=== PATIENT | male | born 1985 | race African-American/Black ===

== ENCOUNTER → 2023-11-09 | Emergency (ER) | payer OTHER, SELFPAY ==
[~2023-11-09] MED LIST: CEFTRIAXONE 1000 MG/VIAL ONE; NA CHLORIDE 0.9% 50 ML ONE
--- OUTSIDE RECORDS SUMMARY | 2023-11-09 12:57 | XMS REPORT | Continuity of Care Document ---
Author Name Unknown Address [address] [place] [address] [facility] Address [address] [place] [address] Care Team Providers Care Outside Plant Technician Name Role Phone FANNY BINGHAM Attending Clinician UnavailMARILU Brandt Attending Clinician Unavailable LOLI LARA Attending Clinician Unavailable ZAID MENDEZ Attending Clinician Unavailable MARQUIS BORDEN Attending Clinician Unavailable Payers Payer Name Policy Type Policy Number Effective Date Expirati on Date Source Encounters Start Date/Time End Date/Time Encounter Type Admission Type Attending Clinicians Care Facility Care Department Encounter ID Source 2023-05-24 15:21:08 Inpatient [facility] [id number] [facility] 2023-01-16 11:30:14 Inpatient TEXANA TEXANA [id number] [facility] 2022-11-12 11:17:16 Inpatient TEXANA TEXANA [id number] [facility] 2022-11-10 23:08:24 Inpatient TEXANA TEXANA [id number] [facility] 2022-11-05 09:50:54 Inpatient TEXANA TEXANA [id number] [facility] 2022-08-06 11:55:36 Inpatient TEXANA TEXANA [id number] [facility] 2022-07-03 14:40:59 Inpatient TEXANA TEXANA [id number] [facility] 2022-04-26 10:51:45 Inpatient TEXANA TEXANA [id number] [facility] 2022-04-11 16:28:03 Inpatient TEXANA TEXANA [id number] [facility] 2023-11-02 17:53:00 2023-11-02 20:46:00 Emergency ER FANNY BINGHAM [facility] [id number] [facility] 2023-11-02 17:53:00 2023-11-02 17:53:00 emergency [facility] [id number] 2023-11-01 11:32:00 2023-11-01 14:07:00 Emergency ER MARILU FERRER [facility] [id number] [facility] 2023-11-01 11:32:00 2023-11-01 14:07:00 emergency [facility] [id number] 2022-07-17 10:54:00 2022-07-17 12:36:00 Emergency ER FANNY BINGHAM [facility] [id number] [facility] 2022-07-17 10:54:00 2022-07-17 12:36:00 emergency [id number] 2021-08-09 14:10:00 2021-08-09 14:10:00 Outpatient OTHER LOCAL AUTHORITY^ ^5 LOLI LARA [facility] [id number] [facility] 2020-11-17 09:32:00 2020-11-17 10:15:00 Emergency ER ZAID MENDEZ [facility] [id number] [facility] 2003-03-05 12:56:00 2003-03-05 14:35:00 Emergency ER MARQUIS BORDEN [facility] [id number] [facility]
[2023-11-09 14:37] LABS: Specific Gravity > 1.030 (1.005-1.030); Urine Bacteria None Seen /HPF (<20); Urine Bilirubin NEGATIVE (Negative); Urine Blood Negative (Negative); Urine Clarity Clear (Clear); Urine Color Yellow (Yellow); Urine Glucose NEGATIVE (Negative); Urine Mucus Slight /HPF (None Seen); Urine Protein TRACE (Negative); Urine RBC <5 /HPF (None Seen); Urine Urobilinogen Normal (Normal)
[2023-11-09 14:39] LABS: Absolute Lymphocytes (CBC) 2.7 K/uL (0.7-4.9); Hematocrit 45.6 % (39.6-49.0); Lymphocytes % 50.1 % (15.3-44.8); MPV 9.4 fL (7.6-11.3); Platelets 267 thou/uL (152-406); RBC Red Blood Cell Count 5.12 M/uL (4.33-5.43)
--- NOTE | 2023-11-09 14:42 | RAD REPORT ---
EXAM DESCRIPTION: US - Scrotum Testicles - 11/09/2023 2:14 pm CLINICAL HISTORY: PAIN COMPARISON: No comparisons FINDINGS: The right testicle 4.9 x 3.3 x 2.2 cm. No intratesticular masses or evidence of testicular torsion. The left testicle significantly atrophic measuring 1.2 x 1.0 cm. Both epididymides are normal in size and appearance. No pathologic fluid collections. 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 Normal appearance to the right testicle with normal flow.
[2023-11-09 14:50] LABS: Albumin 3.7 g/dL (3.4-5.0); Bilirubin Total 0.3 mg/dL (0.2-1.0); Potassium 3.7 mEq/L (3.5-5.1); Protein, Total 7.6 g/dL (6.4-8.2)
[2023-11-09 15:03] LABS: RPR (Rapid Plasma Reagin) NON-REACT (NON-REACT)
--- NOTE | 2023-11-09 15:33 | RAD REPORT ---
EXAM DESCRIPTION: CTAbdomen Pelvis W Contrast - 11/09/2023 3:16 pm CLINICAL HISTORY: Abdominal pain. pain at scrotal base near rectum; Assess for infection COMPARISON: No comparisons TECHNIQUE: Biphasic CT imaging of the abdomen and pelvis was performed with 100 ml non-ionic IV cont rast. All CT scans are performed using dose optimization technique as appropriate and may include automated exposure control or mA/KV adjustment according to patient size. FINDINGS: The lung bases are clear. The liver, spleen, pancreas, adrenal glands and kidneys are within normal limits. No bowel obstruction, free air, free fluid or abscess. The appendix is normal. No evidence of signi ficant lymphadenopathy. Mild soft tissue thickening is seen in the base of the scrotum region, nonspe cific. No suspicious bony findings. IMPRESSION: Mild nonspecific soft tissue thickening is seen in the base of the scrotum/perineal goldie on without well defined fluid collection or mass.
[2023-11-09 15:35] LABS: Blood Morphology Comment NOT SEEN (NOT SEEN); Platelet Estimate ADEQ
--- NOTE | 2023-11-09 16:14 | ER ---
Nurse's Notes [facility] Name: Nam Dinero Age: 38 yrs Sex: Male : 1985 Arrival Date: 11/09/2023 Time: 12:54 Bed 16 Private MD: Diagnosis: Soft tissue infection at perineum, screen for STI Presentation: 11/09 13:13 Chief complaint: Testicular pain x 3 days. Denies injury. Coronavirus screen: At this hb time, the client does not indicate any symptoms associated with coronavirus-19. Ebola Screen: No symptoms or risks identified at this time. Initial Sepsis Screen: Does the patient meet any 2 criteria? No. Patient's initial sepsis screen is negative. Does the patient have a suspected source of infection? No. Patient's initial sepsis screen is negative. Risk Assessment: Do you want to hurt yourself or someone else? Patient reports no desire to harm self or others. Onset of symptoms was November 07, 2023. 13:13 Method Of Arrival: Ambulatory hb 13:13 Acuity: JOCY 3 hb Historical: - Allergies: 13:14 No Known Allergies; hb - Home Meds: 13:14 None [Active]; hb - PMHx: 13:14 None; hb - PSHx: 13:14 hernia; hb - Immunization history:: Adult Immunizations unknown. - Social history:: Smoking status: unknown. Screenin:28 [facility] ED Fall Risk Assessment (Adult) History of falling in the last 3 months, db including since admission No falls in past 3 months (0 pts) Score/Fall Risk Level 0 - 2 = Low Risk. Abuse screen: Denies threats or abuse. Denies injuries from another. Nutritional screening: No deficits noted. Tuberculosis screening: No symptoms or risk factors identified. Assessment: 14:11 Reassessment: PATIENT RETURNED TO ROOM FROM CT. db 14:28 Reassessment: Patient appears in no apparent distress at this time. Patient and/or db family updated on plan of care and expected duration. Pain level reassessed. Patient is alert, oriented x 3, equal unlabored respirations, skin warm/dry/pink. SCROTAL PAIN. General: Appears in no apparent distress. comfortable, Behavior is calm, cooperative. Pain: Complains of pain in pelvis. Neuro: Level of Consciousness is awake, alert, obeys commands, Oriented to person, place, time, situation. Respiratory: Airway is patent Respiratory effort is even, unlabored, Respiratory pattern is regular, symmetrical. 15:49 Reassessment: Pt asked tro change into provided hospital gown, surgeon in route to examine pt. 15:56 Reassessment: DR. VENCES AT PATIENT BEDSIDE. db 16:20 Reassessment: Patient appears in no apparent distress at this time. Patient and/or db family updated on plan of care and expected duration. Pain level reassessed. Patient is alert, oriented x 3, equal unlabored respirations, skin warm/dry/pink. Vital Signs: 13:13 BP 147 / 98; Pulse 112; Resp 18; Temp 98; Pulse Ox 98% ; Weight 70.31 kg; Height 5 ft. hb 9 in. ; Pain 8/10; 16:20 BP 128 / 88; Pulse 96; Resp 18; Pulse Ox 98% on R/A; db 13:13 Body Mass Index 22.89 (70.31 kg, 175.26 cm) hb 13:13 Pain Scale: Adult hb ED Course: 12:57 Patient arrived in ED. mg5 13:14 Triage completed. hb 13:14 Arm band placed on. hb 13:15 Parvin Quigley MD is Attending Physician. sp3 13:52 Megan South, RN is Primary Nurse. db 14:16 US Scrotum Testicles In Process Unspecified. EDMS 14:26 Initial lab(s) drawn, by me, sent to lab. Urine collected: clean catch specimen, clear. [email or web address] Inserted saline lock: 22 gauge in left antecubital area, using aseptic technique. 14:28 Patient has correct armband on for positive identification. Bed in low position. Call db light in reach. Side rails up X 1. Warm blanket given. 14:32 GC (Harrison/Chl) Probe URINE Sent. jg11 14:32 UAM Sent. jg11 15:17 CT Abd/Pelvis - IV Contrast Only In Process Unspecified. EDMS 15:35 Surgeon paged at 15:36. eb 15:38 Surgeon returned call at 15:39. eb 16:13 Sergio Hendricks MD is Referral Physician. sp3 16:20 Provided Education on: DISCHARGE. db 16:20 No provider procedures requiring assistance completed. IV discontinued, intact, db bleeding controlled, No redness/swelling at site. Administered Medications: 14:24 Drug: Rocephin IV 1 grams IV at calculated rate once; Given slow IV push per pharmacy db instructions Route: IV; Rate: calculated rate; Site: left antecubital; 15:01 Follow up: Response: No adverse reaction; IV Status: Completed infusion; IV Intake: 50mldb Medication: 14:28 VIS not applicable for this client. db Intake: 15:01 IV: 50ml; Total: 50ml. db Outcome: 16:13 Discharge ordered by MD. [email or web address] 16:20 Discharged to home ambulatory, with family, db 16:20 Condition: stable 16:20 Discharge instructions given to patient, Instructed on discharge instructions, follow up and referral plans. Prescriptions given X 2, 16:21 Patient left the ED. db Signatures: Dispatcher [employer] EDMS Rita Almanzar, RN RN Kanika Lewis Setul, MD MD sp3 Megan South RN RN Patricia Camargo [address]ata [email or web address]
--- NOTE | 2023-11-09 16:14 | EDPHYS ---
Physician Documentation [facility] Name: Nam Dinero Age: 38 yrs Sex: Male : 1985 Arrival Date: 11/09/2023 Time: 12:54 Bed 16 Private MD: ED Physician Parvin Quigley HPI: 11/09 13:41 This 38 yrs old Black Male presents to ER via Ambulatory with complaints of Groin Pain. 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 Patient had unprotected intercourse with a female and he states that shortly after that the symptoms started. He reports no urethral drainage or penis pain. Pain is more on the skin at the base of the scrotum anterior to the anus. No prior history of Blake's gangrene or any other cellulitis or gangrenous process. Patient denies fever, abdominal pain, back pain, nausea, vomiting, diarrhea, or any other signs or symptoms on ROS at this time.. Historical: - Allergies: 13:14 No Known Allergies; hb - Home Meds: 13:14 None [Active]; hb - PMHx: 13:14 None; hb - PSHx: 13:14 hernia; hb - Immunization history:: Adult Immunizations unknown. - Social history:: Smoking status: unknown. ROS: 13:43 Constitutional: Negative for fever, chills, and weight loss, Eyes: Negative for injury, sp3 pain, redness, and discharge, ENT: Negative for injury, pain, and discharge, Neck: Negative for injury, pain, and swelling, Cardiovascular: Negative for chest pain, palpitations, and edema, Respiratory: Negative for shortness of breath, cough, wheezing, and pleuritic chest pain, Abdomen/GI: Negative for abdominal pain, nausea, vomiting, diarrhea, and constipation, Back: Negative for injury and pain, MS/Extremity: Negative for injury and deformity, Skin: Negative for injury, rash, and discoloration, Neuro: Negative for headache, weakness, numbness, tingling, and seizure, Psych: Negative for depression, anxiety, suicide ideation, homicidal ideation, and hallucinations, Allergy/Immunology: Negative for hives, rash, and allergies, Endocrine: Negative for neck swelling, polydipsia, polyuria, polyphagia, and marked weight changes, Hematologic/Lymphatic: Negative for swollen nodes, abnormal bleeding, and unusual bruising, 13:43 All other systems are negative, Exam: 13:44 Constitutional: This is a well developed, well nourished patient who is awake, alert, sp3 and in no acute distress. Head/Face: Normocephalic, atraumatic. Eyes: Pupils equal round and reactive to light, extra-ocular motions intact. Lids and lashes normal. Conjunctiva and sclera are non-icteric and not injected. Cornea within normal limits. Periorbital areas with no swelling, redness, or edema. Neck: Trachea midline, no thyromegaly or masses palpated, and no cervical lymphadenopathy. Supple, full range of motion without nuchal rigidity, or vertebral point tenderness. No Meningismus. Chest/axilla: Normal chest wall appearance and motion. Nontender with no deformity. No lesions are appreciated. Cardiovascular: Regular rate and rhythm with a normal S1 and S2. No gallops, murmurs, or rubs. Normal PMI, no JVD. No pulse deficits. Respiratory: Lungs have equal breath sounds bilaterally, clear to auscultation and percussion. No rales, rhonchi or wheezes noted. No increased work of breathing, no retractions or nasal flaring. Abdomen/GI: Soft, non-tender, with normal bowel sounds. No distension or tympany. No guarding or rebound. No evidence of tenderness throughout. Back: No spinal tenderness. No costovertebral tenderness. Full range of motion. Skin: Warm, dry with normal turgor. Normal color with no rashes, no lesions, and no evidence of cellulitis. MS/ Extremity: Pulses equal, no cyanosis. Neurovascular intact. Full, normal range of motion. Neuro: Awake and alert, GCS 15, oriented to person, place, time, and situation. Cranial nerves II-XII grossly intact. Motor strength 5/5 in all extremities. Sensory grossly intact. Cerebellar exam normal. Normal gait. Psych: Awake, alert, with orientation to person, place and time. Behavior, mood, and affect are within normal limits. 13:44 : Pain to palpation on the skin anterior to the anus. Testicular exam demonstrates mild pain as well. No urethral drainage noted. No visible lesions noted., Vital Signs: 13:13 BP 147 / 98; Pulse 112; Resp 18; Temp 98; Pulse Ox 98% ; Weight 70.31 kg; Height 5 ft. hb 9 in. ; Pain 8/10; 16:20 BP 128 / 88; Pulse 96; Resp 18; Pulse Ox 98% on R/A; db 13:13 Body Mass Index 22.89 (70.31 kg, 175.26 cm) hb 13:13 Pain Scale: Adult hb MDM: 13:15 Patient medically screened. sp3 13:44 Data reviewed: vital signs, nurses notes, lab test result(s), radiologic studies. ED sp3 course: 38-year-old male with scrotal pain. Differential diagnosis includes localized abscess, infected hair follicle, testicular pathology, epididymitis, STI, and to a lesser degree Blake's gangrene in a very early process. Will obtain CT scan of the abdomen pelvis with IV contrast to assess that area as well as an ultrasound of the testicle, and general laboratory values as well as urine analysis and STI testing. Patient has received 1 g of Rocephin IV and we will add doxycycline if patient is discharged disposition pending workup and patient course... 15:43 ED course: Reviewed workup. Ultrasound is negative and labs demonstrate no significant sp3 abnormality. CT demonstrates thickening of the peroneal area inferior to the scrotum. This is the area where he is tender. Pain is out of proportion to exam. I discussed this with Dr. Cuevas general surgery on-call who will be evaluating patient at bedside.. 16:10 ED course: Patient evaluated by general surgery. At this time we are not highly sp3 suspicious for Blake's and we will treat as soft tissue infection. Patient will go home on doxycycline and topical antibiotic ointment and follow-up with urology.. 11/09 13:21 Order name: CBC with Diff; Complete Time: 15:36 sp3 11/09 13:21 Order name: CMP; Complete Time: 15:00 sp3 11/09 13:21 Order name: UAM; Complete Time: 15:00 sp3 11/09 13:21 Order name: GC (Harrison/Chl) Probe URINE sp3 11/09 13:21 Order name: Rpr; Complete Time: 15:34 sp3 11/09 14:46 Order name: Manual Differential; Complete Time: 15:36 EDMS 11/09 13:21 Order name: CT Abd/Pelvis - IV Contrast Only; Complete Time: 15:34 sp3 11/09 13:21 Order name: US Scrotum Testicles; Complete Time: 15:00 sp3 11/09 13:21 Order name: IV Saline Lock; Complete Time: 14:28 sp3 11/09 13:21 Order name: Labs collected and sent; Complete Time: 14:28 sp3 Administered Medications: 14:24 Drug: Rocephin IV 1 grams IV at calculated rate once; Given slow IV push per pharmacy db instructions Route: IV; Rate: calculated rate; Site: left antecubital; 15:01 Follow up: Response: No adverse reaction; IV Status: Completed infusion; IV Intake: 50mldb Disposition Summary: 11/09/23 16:13 Discharge Ordered Notes: Location: Home sp3 Condition: Stable sp3 Diagnosis - Soft tissue infection at perineum, screen for STI sp3 Followup: sp3 - With: Sergio Hendricks MD - When: Upon discharge from the Emergency Department - Reason: Recheck today's complaints Discharge Instructions: - Discharge Summary Sheet sp3 - Cellulitis, Adult sp3 - Safe Sex sp3 Forms: - Medication Reconciliation Form sp3 - Thank You Letter sp3 - Antibiotic Education sp3 - Prescription Opioid Use sp3 - Patient Portal Instructions sp3 - Leadership Thank You Letter sp3 Prescriptions: - mupirocin 2 % Topical ointment - apply 1 application TOPICAL route 3 times per day; 15 gram tube; Refills: 0, sp3 Product Selection Permitted - Doxycycline Hyclate 100 mg Oral Tablet - take 1 tablet ORAL route every 12 hours; 20 tablet; Refills: 0, Product sp3 Selection Permitted Signatures: Dispatcher [employer] Rita Og RN RN Parvin Serrano MD MD sp3 Megan South RN RN db
[2023-11-09 16:44] VITALS: TEMP 98; O2SAT 98
[2023-11-09 17:00] VITALS: BP 128/88
--- NOTE | 2023-11-09 19:27 | CON ---
Date of Consultation: 11/09/2023 Reason: Perineal body pain. History Of Present Illness: The patient is a 38-year-old gentleman who comes in with a history of un protected sex about a week ago with someone he did not know and had difficulty with ejaculation, pain at the base of his penis, and had a CAT scan done in the ER, which showed inflammation of the perine al body and his pain was out of proportion to the physical findings. Therefore I was consulted to bala ke sure that he does not have perineal infection or Blake gangrene. The patient is awake, alert, no distress. He denies any fever or chills. No sore throat, runny nose, cough, headaches, or dizzin ess. No GI symptoms. No diarrhea or constipation. No pain with defecation. No urethral discharge. No dysuria, hematuria. Review of Systems: Otherwise unremarkable. Past Medical History: Negative. Past Surgical History: Inguinal hernia repair. Allergies: NONE. Social History: He does smoke and occasionally drinks alcohol and does smoke marijuana as well. Family History: Noncontributory. Physical Examination: Vital Signs: Stable except for slightly elevated heart rate. He is afebrile. General: He is awake, alert, oriented x3. Head and Neck: No masses. Chest: Clear. Heart: S1, S2. Abdomen: Soft, nondistended, nontender. Positive bowel sounds. Extremities: Neurovascularly intact. Neuro: Nonfocal. : Examination of the penis, scrotum, and perineal body and rectum region reveals no evidence of an y warmth, edema, tenderness, crepitus, or discharge. Essentially nontender at this point. 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 Laboratory Data: White count 5.4, his H and H are 15.1 and 45.6, platelets are 267. His neutrophil percentage is 40.2, lymphocytes 50.1. His ultrasound of the scrotum reveals highly atrophic left lori ticle suspected, normal appearance right testicle with normal flow. Both epididymides are normal in size and appearance. There is no pathological fluid collection. The CT of the abdomen and pelvis re viewed as well, which shows mild nonspecific soft tissue thickening in the base of the scrotum, perin eal region without well-defined fluid collection or mass. There is no air. There are no other suspi cious findings in the abdomen. Assessment: A 38-year-old gentleman with perineal pain probably secondary to recent sexual activity with inflammation. Recommendation: Oral antibiotics should suffice, pain medication as needed, and follow up with the u rologist with all of his concerns. There is no need for any general surgical intervention or foll owup with this particular patient. BRUNO/LAWRENCE Voice ID: [id number] Report ID: [id number]
== END ==
LOC: ER 12:54
DX: L03.315 Cellulitis of perineum (principal); Z11.3 Encounter for screening for infections with a predominantly sexual mode of transmission
CPT/HCPCS: 85025; 81001; 36415; 86592; 80053; 87590; 87490; 74177; 76870; Q9967; J0696

== ENCOUNTER 2024-07-09 19:18 | Emergency (ER) | payer OTHER, SELFPAY ==
--- OUTSIDE RECORDS SUMMARY | 2024-07-09 19:21 | XMS REPORT | Continuity of Care Document ---
Author Name Unknown Address [address] [facility] [address] [place] [address] [facility] Address [address] [facility] [place] [address] Care Team Providers Care Director Medicare Sales Name Role Phone ARVIN ESPINAL Attending Clinician Unavailable ANGELES BERG Attending Clinician Unavailable FANNY BINGHAM Attending Clinician UnavailMARILU Brandt Attending Clinician Unavailable LOLI LARA Attending Clinician Unavailable ZAID MENDEZ Attending Clinician Unavailable CHINTAN FREED Attending Clinician UnavailMARQUIS Tirado Attending Clinician Unavailable Payers Payer Name Policy Type Policy Number Effective Date Expirati on Date Source Allergies, Adverse Reactions, Alerts Allergy Name Allergy Type Status Severity Reaction(s) Onset Date Inactive Date Treating Clinician Comments Source No known drug allergy Miscella neous allergy Active 10-09 00:00: 00 [facility] Encounters Start Date/Time End Date/Time Encounter Type Admission Type Attending Clinicians Care Facility Care Department Encounter ID Source 2023-05-24 15:21:08 Inpatient TEXANA TEXANA [id number] [facility] 2023-01-16 11:30:14 Inpatient TEXANA TEXANA [id number] [facility] 2022-11-12 11:17:16 Inpatient TEXANA TEXANA [id number] [facility] 2022-11-10 23:08:24 Inpatient TEXANA TEXANA [id number] [facility] 2022-11-05 09:50:54 Inpatient TEXANA TEXANA [id number] [facility] 2022-08-06 11:55:36 Inpatient TEXANA TEXANA [id number] [facility] 2022-07-03 14:40:59 Inpatient TEXANA TEXANA [id number] [facility] 2022-04-26 10:51:45 Inpatient TEXANA TEXANA [id number] [facility] 2022-04-11 16:28:03 Inpatient TEXANA TEXANA [id number] [facility] 2023-12-31 08:30:00 2023-12-31 08:30:00 Outpatient UNKNOWN ARVIN ESPINAL [facility] [id number] [facility] 2023-11-19 01:01:00 2023-11-19 03:26:00 Emergency ER ANGELES BERG [facility] [id number] [facility] 2023-11-02 17:53:00 2023-11-02 20:46:00 Emergency ER FANNY BINGHAM [facility] [id number] [facility] 2023-11-02 17:53:00 2023-11-02 17:53:00 emergency [facility] [id number] 2023-11-01 11:32:00 2023-11-01 14:07:00 Emergency ER MARILU FERRER [facility] [id number] [facility] 2023-11-01 11:32:00 2023-11-01 14:07:00 emergency [facility] [id number] 2022-07-17 10:54:00 2022-07-17 12:36:00 Emergency ER DANIELALTAFFANNY MCDANIEL [facility] [id number] [facility] 2022-07-17 10:54:00 2022-07-17 12:36:00 emergency [id number] 2022-04-11 17:27:00 2022-04-11 17:27:00 Outpatient INTERNAL TEXANA REFERRAL^^ 4^INTERNAL TEXANA REFERRAL^^ 4^INTERNAL TEXANA REFERRAL^^ 4 TEXANA TEXANA [id number] [facility] 2021-08-09 13:10:00 2021-08-09 13:10:00 Outpatient OTHER LOCAL AUTHORITY LARALOLI TEXANA TEXANA [id number] [facility] 2020-11-17 09:32:00 2020-11-17 10:15:00 Emergency ER ZAID MENDEZ [facility] [id number] [facility] 2020-05-04 11:40:00 2020-05-05 00:03:00 Emergency E CHINTAN FREED [facility] [id number] [facility] 2003-03-05 12:56:00 2003-03-05 14:35:00 Emergency ER MARQUIS BORDEN [facility] [id number] [facility]
[2024-07-09] MEDS ORDERED: BISACODYL E.C. 5 MG TAB PO ONE (20:42)
--- NOTE | 2024-07-09 21:35 | EDPHYS ---
Physician Documentation [facility] Name: Nam Dinero Age: 38 yrs Sex: Male : 1985 Arrival Date: 07/09/2024 Time: 19:18 Bed 12 Private MD: ED Physician Benjamín Taylor HPI: 07/09 20:54 This 38 yrs old Black Male presents to ER via Ambulatory with complaints of Radioactive.sb4 20:54 Patient states that he believes there is something wrong with his brain. He complains sb4 of intermittent dizziness, headaches, near syncope. He denies any nausea or vomiting. Of note, he has a history of psychiatric illness and has not been taking his monthly injection. He is wearing a hat Made of aluminum foil to "protect his brain". Historical: - Allergies: 19:28 No Known Allergies; cm10 - PMHx: 19:28 None; cm10 - PSHx: 19:28 hernia; cm10 - Immunization history:: Adult Immunizations up to date. - Infectious Disease History:: Denies. - Social history:: Smoking status: Patient reports the use of cigarette tobacco products, smokes one-half pack cigarettes per day. ROS: 20:54 Constitutional: Negative for fever, chills, and weight loss, sb4 20:54 Abdomen/GI: Positive for constipation, 20:54 Neuro: Positive for dizziness, headache, 20:54 All other systems are negative, Exam: 20:54 Head/Face: Normocephalic, atraumatic. Eyes: Extra-ocular motions intact. Periorbital sb4 areas with no swelling, redness, or edema. ENT: Mucous membranes moist. Skin: Warm, dry with normal turgor. Normal color with no rashes, no lesions, and no evidence of cellulitis. 20:54 Constitutional: The patient appears in no acute distress, alert, awake, 20:54 Psych: Behavior/mood is cooperative, Patient has no thoughts/intents to harm self or others. Judgement / Insight is impaired. Vital Signs: 19:26 BP 147 / 96; Pulse 111; Resp 15; Temp 99(O); Pulse Ox 100% on R/A; Weight 68.04 kg; cm10 Height 5 ft. 9 in. ; Pain 0/10; 19:26 Body Mass Index 22.15 (68.04 kg, 175.26 cm) cm10 19:26 Pain Scale: Adult cm10 MDM: 19:30 Patient medically screened. sb4 21:33 Data reviewed: vital signs, nurses notes, and as a result, I will discharge patient. sb4 Counseling: I had a detailed discussion with the patient and/or guardian regarding the historical points, exam findings, and any diagnostic results supporting the discharge/admit diagnosis, the need for outpatient follow up, a psychiatrist, to return to the emergency department if symptoms worsen or persist or if there are any questions or concerns that arise at home. 21:33 ED course: Patient was taken to CAT scan but jumped out of CAT scan before it could be sb4 completed and then eloped. Administered Medications: 20:44 Drug: Bisacodyl PO 5 mg PO once Route: PO; tm6 21:35 Follow up: Response: No adverse reaction tm6 Disposition Summary: 07/09/24 21:34 Discharge Ordered Notes: Location: Home sb4 Problem: new sb4 Symptoms: are unchanged sb4 Condition: Stable sb4 Diagnosis - Altered mental status, unspecified sb4 Followup: sb4 - With: Emergency Department - When: As needed - Reason: Trouble breathing, Worsening of condition Forms: - Medication Reconciliation Form sb4 - Antibiotic Education sb4 - Prescription Opioid Use sb4 - Patient Portal Instructions sb4 - Leadership Thank You Letter sb4 Addendum: 07/12/2024 21:36 Co-signature as Attending Physician, Benjamín Taylor DO. m s3 Signatures: Dispatcher [employer] EDPA Benjamín Taylor DO DO ms3 Olimpia Cain PA-C PAWanda sb4 Dania Mayers, RN RN cm10 Kim Cole RN RN tm6
--- NOTE | 2024-07-09 21:35 | ER ---
Nurse's Notes [facility] Name: Nam Dinero Age: 38 yrs Sex: Male : 1985 Arrival Date: 07/09/2024 Time: 19:18 Bed 12 Private MD: Diagnosis: Altered mental status, unspecified Presentation: 07/09 19:26 Chief complaint: Patient states: "I ingested a chemical and I went into the hospital cm10 and they shot an x-ray and after that I started having abdominal pain." Pt states that he feels like something is in his head. Pt presents with tin foil hat on. Denies any drug or alcohol use. Denies any SI/HI. Coronavirus screen: Client denies travel out of the [place] in the last 14 days. Ebola Screen: Patient denies travel to an Ebola-affected area in the 21 days before illness onset. No symptoms or risks identified at this time. Initial Sepsis Screen: Does the patient meet any 2 criteria? HR > 90 bpm. Does the patient have a suspected source of infection? No. Patient's initial sepsis screen is negative. Risk Assessment: Do you want to hurt yourself or someone else? Patient reports no desire to harm self or others. Onset of symptoms was July 09, 2024. 19:26 Method Of Arrival: Ambulatory cm10 19:26 Acuity: JOCY 4 cm10 Triage Assessment: 19:29 General: Appears in no apparent distress. Behavior is calm, cooperative. Neuro: No cm10 deficits noted. Level of Consciousness is awake, alert, obeys commands, Oriented to person, place, time, situation, Appropriate for age. 19:29 Respiratory: No deficits noted. Airway is patent Respiratory effort is even, unlabored, cm10 Respiratory pattern is regular, symmetrical. Historical: - Allergies: 19:28 No Known Allergies; cm10 - PMHx: 19:28 None; cm10 - PSHx: 19:28 hernia; cm10 - Immunization history:: Adult Immunizations up to date. - Infectious Disease History:: Denies. - Social history:: Smoking status: Patient reports the use of cigarette tobacco products, smokes one-half pack cigarettes per day. Screenin:52 [facility] ED Fall Risk Assessment (Adult) History of falling in the last 3 months, tm6 including since admission No falls in past 3 months (0 pts) Confusion or Disorientation Yes (5 pts) Intoxicated or Sedated No (0 pts) Impaired Gait No (0 pts) Mobility Assist Device Used No (0 pt) Altered Elimination No (0 pt) Score/Fall Risk Level 3 or more points = High Risk Oriented to surroundings, Maintained a safe environment, Educated pt \\T\\ family on fall prevention, incl call for assistance when getting out of bed. Abuse screen: Denies threats or abuse. Denies injuries from another. Nutritional screening: No deficits noted. Tuberculosis screening: No symptoms or risk factors identified. Assessment: 20:52 Reassessment: patient rambling about "truth" and "love." RN provided prune juice and tm6 blanket to patient. General: Appears in no apparent distress. Behavior is anxious, restless. Pain: Denies pain. Neuro: Level of Consciousness is awake, alert, obeys commands, Oriented to person, place. Cardiovascular: Patient's skin is warm and dry. Respiratory: Airway is patent Respiratory effort is even, unlabored, Respiratory pattern is regular, symmetrical. GI: Abdomen is flat, non-distended, Reports constipation. : No signs and/or symptoms were reported regarding the genitourinary system. EENT: No signs and/or symptoms were reported regarding the EENT system. Derm: No signs and/or symptoms reported regarding the dermatologic system. Musculoskeletal: No signs and/or symptoms reported regarding the musculoskeletal system. 21:41 Reassessment: patient eloped from CT scan. Unable to obtain vitals prior to discharge tm6 or review discharge paperwork with patient. Vital Signs: 19:26 BP 147 / 96; Pulse 111; Resp 15; Temp 99(O); Pulse Ox 100% on R/A; Weight 68.04 kg; cm10 Height 5 ft. 9 in. ; Pain 0/10; 19:26 Body Mass Index 22.15 (68.04 kg, 175.26 cm) cm10 19:26 Pain Scale: Adult cm10 ED Course: 19:19 Patient arrived in ED. mg5 19:26 Olimpia Cain PA-C is [facility]. sb4 19:26 Benjamín Taylor DO is Attending Physician. sb4 19:28 Triage completed. cm10 19:29 Arm band placed on Patient placed in waiting room. cm10 20:38 Kim Cole, RN is Primary Nurse. tm6 20:52 Patient has correct armband on for positive identification. Fall risk band placed. tm6 Provided Education on: use of call ray. Noise minimized. Warm blanket given. Pillow given. PO fluids given. 21:42 No provider procedures requiring assistance completed. Patient did not have IV access tm6 during this emergency room visit. Administered Medications: 20:44 Drug: Bisacodyl PO 5 mg PO once Route: PO; tm6 21:35 Follow up: Response: No adverse reaction tm6 Medication: 20:52 VIS not applicable for this client. tm6 Outcome: 21:34 Discharge ordered by . sb4 21:42 Discharged to home with family, tm6 21:42 Condition: unchanged 21:43 Patient left the ED. tm6 Signatures: Olimpia Cain PA-C PA-C sb4 Dania Mayers, RN RN cm10 Patricia Knapp mg5 Kim Cole, RN RN tm6
[2024-07-10 10:02] VITALS: BP 147/96; TEMP 99; O2SAT 100
== END 2024-07-09 21:43 | disposition home or self-care (01) ==
LOC: ER 19:18
DX: R41.82 Altered mental status, unspecified (principal); R42 Dizziness and giddiness; R51.9 Headache, unspecified; R55 Syncope and collapse; F17.210 Nicotine dependence, cigarettes, uncomplicated
CPT/HCPCS: 99282

== ENCOUNTER 2024-07-21 14:39 | Emergency (ER) | payer SELFPAY ==
--- OUTSIDE RECORDS SUMMARY | 2024-07-21 14:42 | XMS REPORT | Continuity of Care Document ---
Author Name Unknown Address [address] [facility] [address] [place] [address] [facility] Address [address] [facility]. [address] [place] [address] Care Team Providers Care Joiner Helper Name Role Phone ARVIN ESPINAL Attending Clinician [...] Miscella neous allergy Active 10-09 00:00: 00 [facility] Encounters Start Date/Time End Date/Time Encounter Type Admission Type Attending Clinicians Care Facility Care Department Encounter ID Source 2023-05-24 15:21:08 Inpatient TEXANA TEXANA [id number] [facility] 2023-01-16 11:30:14 Inpatient TEXANA TEXANA [id number] [facility] 2022-11-12 11:17:16 Inpatient TEXANA TEXANA [id number] [facility] 2022-11-10 23:08:24 Inpatient TEXANA TEXANA [id number] [facility] 2022-11-05 09:50:54 Inpatient TEXANA TEXANA [id number] [facility] 2022-08-06 11:55:36 Inpatient TEXANA TEXANA [id number] [facility] 2022-07-03 14:40:59 Inpatient TEXANA TEXANA [id number] [facility] 2022-04-26 10:51:45 Inpatient TEXANA TEXANA [id number] [facility] 2022-04-11 16:28:03 Inpatient TEXANA TEXANA [id number] [facility] 2023-12-31 08:30:00 2023-12-31 08:30:00 Outpatient UNKNOWN ARVIN ESPINAL [facility] [id number] [facility] 2023-11-19 01:01:00 2023-11-19 03:26:00 Emergency ER ANGELES BERG [facility] [id number] [facility] 2023-11-02 17:53:00 2023-11-02 20:46:00 Emergency ER FANNY BINGHAM [facility] [id number] [facility] 2023-11-02 17:53:00 2023-11-02 17:53:00 emergency [facility] [id number] 2023-11-01 11:32:00 2023-11-01 14:07:00 Emergency ER MARILU FERRER [facility] [id number] [facility] 2023-11-01 11:32:00 2023-11-01 14:07:00 emergency [facility] [id number] 2022-07-17 10:54:00 2022-07-17 12:36:00 Emergency ER DANIELALTAFFANNY MCDANIEL [facility] [id number] [facility] 2022-07-17 10:54:00 2022-07-17 12:36:00 emergency [id number] 2022-04-11 17:27:00 2022-04-11 17:27:00 Outpatient INTERNAL TEXANA REFERRAL^^ 4^INTERNAL TEXANA REFERRAL^^ 4^INTERNAL TEXANA REFERRAL^^ 4 TEXANA TEXANA [id number] [facility] 2021-08-09 13:10:00 2021-08-09 13:10:00 Outpatient OTHER LOCAL AUTHORITY LARALOLI TEXANA TEXANA [id number] [facility] 2020-11-17 09:32:00 2020-11-17 10:15:00 Emergency ER ZAID MENDEZ [facility] [id number] [facility] 2020-05-04 11:40:00 2020-05-05 00:03:00 Emergency E CHINTAN FREED [facility] [address] [facility] 2003-03-05 12:56:00 2003-03-05 14:35:00 Emergency ER MARQUIS BORDEN [facility] [id number] [facility]
[2024-07-21 15:26] LABS: Specific Gravity > 1.030 (1.005-1.030); Sqamous Epithelial <5 /HPF (None Seen); Urine Bacteria <20 /HPF (<20); Urine Bilirubin NEGATIVE (Negative); Urine Blood Negative (Negative); Urine Clarity Clear (Clear); Urine Color Yellow (Yellow); Urine Culture Reflex Order NOT NEEDED; Urine Glucose NEGATIVE (Negative); Urine Ketones TRACE (Negative); Urine Micro Reflex YN NO BILL MICROSCOPIC; Urine Mucus 2+ /HPF (None Seen); Urine Nitrite NEGATIVE (Negative); Urine Protein TRACE (Negative); Urine RBC <5 /HPF (None Seen); Urine Urobilinogen 2+ (Normal); Urine WBC <5 /HPF (<5)
--- NOTE | 2024-07-21 15:34 | EDPHYS ---
Physician Documentation [facility] Name: Nam Dinero Age: 38 yrs Sex: Male : 1985 Arrival Date: 07/21/2024 Time: 14:39 Bed IW1 Private MD: ED Physician Jose Merrill HPI: 07/21 14:55 This 38 yrs old Black Male presents to ER via Ambulatory with complaints of Penile ec2 Problem - swelling. 14:55 Patient arrives today for evaluation of reported penile issues. States that he has a ec2 bulge in the shaft of his penis. Patient reports occasional acute penile pain. Patient reports some dysuria. Patient also wears aluminum foil on his forehead to protect his brain.. Historical: - PSHx: 14:53 hernia; ap3 - Infectious Disease History:: unknown. - Social history:: Smoking status: unknown. ROS: 14:58 Constitutional: as per hpi ec2 Exam: 14:58 Constitutional: GEN: NAD Head: atraumatic Eyes: EOMI Ears: External ears are ec2 normal. CV: regular rate LUNGS: no respiratory distress ABD: non-distended. : Penis without significant erythema, no crepitus, no warmth, no discharge appreciated. Testicles are noninfectious appearing, does have testicular atrophy noted. SKIN: no evidence of rashes MSK: no evidence of trauma Vital Signs: 14:52 BP 132 / 75; Pulse 98; Resp 17; Temp 98.1; Pulse Ox 98% ; ap3 MDM: 14:46 Medical Screening Exam initiated ec2 14:58 Data reviewed: vital signs. ED course: Patient arrives today for evaluation of penile ec2 concerns. Examination remarkable for well-appearing nontoxic dividual's otherwise in no acute distress with a reassuring examination. Will send UA to evaluate for urinary tract infection. Patient with fall on his forehead, certainly has an underlying psychiatric disorder, he states he does not take medications currently. Patient is generally disheveled however does not seem to be an active threat to himself.. 07/21 14:53 Order name: RAFFY; Complete Time: 15:33 ec2 Administered Medications: No medications were administered Disposition Summary: 07/21/24 15:33 Discharge Ordered Condition: Stable ec2 Diagnosis - Dysuria ec2 Followup: ec2 - With: Private Physician - When: - Reason: Re-evaluation by your physician Followup: ec2 - With: Sergio Hendricks MD - When: - Reason: Recheck today's complaints Discharge Instructions: - Discharge Summary Sheet ec2 - Dysuria ec2 Forms: - Medication Reconciliation Form ec2 - Antibiotic Education ec2 - Prescription Opioid Use ec2 - Patient Portal Instructions ec2 - Leadership Thank You Letter ec2 Prescriptions: - Pyridium 200 mg Oral Tablet - take 1 tablet ORAL route every 8 hours for 3 days; 9 tablet; Refills: 0, ec2 Product Selection Permitted Signatures: Dispatcher [employer] EDSD Palmira Tracy RN RN ap3 Jose Merrill MD MD ec2 Corrections: (The following items were deleted from the chart) 14:53 14:53 Urinalysis W/Microscopic+U.LAB.BRZ ordered. [facility] EDSD 14:54 14:53 Allergies: No Known Allergies; ap3 ap3 15:42 15:41 Reduction: of the head of penis, using traction, Patient tolerated well. ec2 ec2
--- NOTE | 2024-07-21 15:34 | ER ---
Nurse's Notes [facility] Name: Nam Dinero Age: 38 yrs Sex: Male : 1985 Arrival Date: 07/21/2024 Time: 14:39 Bed IW1 Private MD: Diagnosis: Dysuria Presentation: 07/21 14:49 Chief complaint: Patient states: he is having pain in his penis and his testicles. ap3 Coronavirus screen: At this time, the client does not indicate any symptoms associated with coronavirus-19. Ebola Screen: No symptoms or risks identified at this time. 14:49 Method Of Arrival: Ambulatory ap3 14:52 Chief complaint: Patient states: he has been having pain in his testicles and penis. ap3 Coronavirus screen: At this time, the client does not indicate any symptoms associated with coronavirus-19. Ebola Screen: No symptoms or risks identified at this time. Initial Sepsis Screen: Does the patient meet any 2 criteria? No. Patient's initial sepsis screen is negative. Does the patient have a suspected source of infection? No. Patient's initial sepsis screen is negative. Risk Assessment: Do you want to hurt yourself or someone else? Patient reports no desire to harm self or others. Onset of symptoms is unknown. 14:52 Method Of Arrival: Ambulatory ap3 14:52 Acuity: JOCY 5 ap3 Triage Assessment: 14:54 General: Appears comfortable, Behavior is anxious. Pain: Complains of pain in head of ap3 penis and shaft of penis. Neuro: Level of Consciousness is awake, alert, obeys commands, Oriented to person, place, time, situation. Cardiovascular: Patient's skin is warm and dry. Respiratory: Airway is patent Respiratory effort is even, unlabored, Respiratory pattern is regular, symmetrical. Derm: Reports pain. Historical: - PSHx: 14:53 hernia; ap3 - Infectious Disease History:: unknown. - Social history:: Smoking status: unknown. Screenin:56 Abuse screen: Denies threats or abuse. Nutritional screening: No deficits noted. ap3 Tuberculosis screening: No symptoms or risk factors identified. Vital Signs: 14:52 BP 132 / 75; Pulse 98; Resp 17; Temp 98.1; Pulse Ox 98% ; ap3 ED Course: 14:42 Patient arrived in ED. ra3 14:42 Merrill, Jose, MD is Attending Physician. ec2 14:53 Triage completed. ap3 14:56 Arm band placed on right wrist. ap3 14:56 Patient has correct armband on for positive identification. Adult w/ patient. Provided ap3 Education on: urine collection. 15:33 Sergio Hendricks MD is Referral Physician. ec2 16:02 Latanya Valenzuela, RN is Primary Nurse. iw Administered Medications: No medications were administered Outcome: 15:33 Discharge ordered by . ec2 16:02 Patient left the ED. iw Signatures: Latanya Valenzuela, RN RN iw Palmira Tracy RN RN ap3 Jose Merrill MD MD ec2 Christine Mares ra3 Corrections: (The following items were deleted from the chart) 14:54 14:53 Allergies: No Known Allergies; ap3 ap3
[2024-07-21 16:46] VITALS: BP 132/75; TEMP 98.1; O2SAT 98
== END 2024-07-21 16:02 | disposition home or self-care (01) ==
LOC: ER 14:39
DX: R30.0 Dysuria (principal)
CPT/HCPCS: 81001; 99281

== ENCOUNTER 2024-07-30 20:52 | Emergency (ER) | payer SELFPAY ==
--- OUTSIDE RECORDS SUMMARY | 2024-07-30 20:54 | XMS REPORT | Continuity of Care Document ---
Author Name Unknown Address [address] [facility] [address] [place], [place] [id number] [place] [address] [facility] Address [address] [facility] [address] [place] [address] Care Team Providers Care Echocardiography Radiology Technologist Name Role Phone ARVIN ESPINAL Attending Clinician [...] Miscella neous allergy Active 10-09 00:00: 00 [facility] Encounters Start Date/Time End Date/Time Encounter Type Admission Type Attending Clinicians Care Facility Care Department Encounter ID Source 2023-05-24 15:21:08 Inpatient TEXANA TEXANA [id number] [facility] 2023-01-16 11:30:14 Inpatient TEXANA TEXANA [id number] [facility] 2022-11-12 11:17:16 Inpatient TEXANA TEXANA [id number] [facility] 2022-11-10 23:08:24 Inpatient TEXANA TEXANA [id number] [facility] 2022-11-05 09:50:54 Inpatient TEXANA TEXANA [id number] [facility] 2022-08-06 11:55:36 Inpatient TEXANA TEXANA [id number] [facility] 2022-07-03 14:40:59 Inpatient TEXANA TEXANA [id number] [facility] 2022-04-26 10:51:45 Inpatient TEXANA TEXANA [id number] [facility] 2022-04-11 16:28:03 Inpatient TEXANA TEXANA [id number] [facility] 2023-12-31 08:30:00 2023-12-31 08:30:00 Outpatient UNKNOWN ARVIN ESPINAL [facility] [id number] [facility] 2023-11-19 01:01:00 2023-11-19 03:26:00 Emergency ER ANGELES BERG [facility] [id number] [facility] 2023-11-02 17:53:00 2023-11-02 20:46:00 Emergency ER FANNY BINGHAM [facility] [id number] [facility] 2023-11-02 17:53:00 2023-11-02 17:53:00 emergency [facility] [id number] 2023-11-01 11:32:00 2023-11-01 14:07:00 emergency [facility] [id number] 2023-11-01 11:32:00 2023-11-01 14:07:00 Emergency ER MARILU FERRER [facility] [id number] [facility] 2022-07-17 10:54:00 2022-07-17 12:36:00 emergency [id number] 2022-07-17 10:54:00 2022-07-17 12:36:00 Emergency ER DANIELALTAFFANNY MCDANIEL [facility] [id number] [facility] 2022-04-11 17:27:00 2022-04-11 17:27:00 Outpatient INTERNAL TEXANA REFERRAL^^ 4^INTERNAL TEXANA REFERRAL^^ 4^INTERNAL TEXANA REFERRAL^^ 4 TEXANA TEXANA [id number] [facility] 2021-08-09 13:10:00 2021-08-09 13:10:00 Outpatient OTHER LOCAL AUTHORITY LOLI LARA TEXANA TEXANA [id number] [facility] 2020-11-17 09:32:00 2020-11-17 10:15:00 Emergency ER ZAID MENDEZ [facility] [id number] [facility] 2020-05-04 11:40:00 2020-05-05 00:03:00 Emergency E CHINTAN FREED [facility] [id number] [facility] 2003-03-05 12:56:00 2003-03-05 14:35:00 Emergency ER MARQUIS BORDEN [facility] [id number] [facility]
--- NOTE | 2024-07-30 22:24 | RAD REPORT ---
EXAMINATION: XR PELVIS CLINICAL INDICATION: Male, 38 years old. [facility] MAIN foreign body urethra Bed Name: Treatment TECHNIQUE: AP Pelvis radiograph was obtained. COMPARISON: No prior exam. FINDINGS: No evidence of fracture or dislocation. Normal alignment. No evidence of AVN. Soft tissues are unremarkable. No radiopaque foreign body. IMPRESSION: No acute or significant abnormalities.
--- NOTE | 2024-07-30 22:27 | ER ---
Nurse's Notes [facility] Name: Nam Dinero Age: 38 yrs Sex: Male : 1985 Arrival Date: 07/30/2024 Time: 20:52 Bed IW10 Private MD: Diagnosis: Sensation of foreign body in the penis, Formication , Tactile Hallucinations Presentation: 07/30 21:22 Chief complaint: Patient states: STUCK SOMETHING UP HIS PENIS 1 WEEK AGO AND WANTS IT jj7 CHECKED. Coronavirus screen: At this time, the client does not indicate any symptoms associated with coronavirus-19. Ebola Screen: No symptoms or risks identified at this time. Initial Sepsis Screen: Does the patient meet any 2 criteria? No. Patient's initial sepsis screen is negative. Does the patient have a suspected source of infection? No. Patient's initial sepsis screen is negative. Risk Assessment: Do you want to hurt yourself or someone else? Patient reports no desire to harm self or others. Onset of symptoms was July 21, 2024. 21:22 Method Of Arrival: Ambulatory [facility] 21:22 Acuity: JOCY 5 jj7 Triage Assessment: 21:29 General: Appears in no apparent distress. comfortable, unkempt, Behavior is jj7 cooperative, appropriate for age, agitated. Historical: - Allergies: 21:29 No Known Allergies; jj7 - PMHx: 21:29 None; jj7 - PSHx: 21:29 hernia; jj7 - Immunization history:: Client reports receiving the 2nd dose of the Covid vaccine, Flu vaccine is not up to date. - Infectious Disease History:: Denies. - Social history:: Smoking status: Patient reports the use of cigarette tobacco products, smokes more than three packs cigarettes per day. Patient uses street drugs, Methamphetamine (Meth) Patient/guardian denies using alcohol. - Family history:: not pertinent. Screenin:00 [facility] ED Fall Risk Assessment (Adult) History of falling in the last 3 months, ha1 including since admission No falls in past 3 months (0 pts) Confusion or Disorientation No (0 pts) Intoxicated or Sedated No (0 pts) Impaired Gait No (0 pts) Mobility Assist Device Used No (0 pt) Altered Elimination No (0 pt) Score/Fall Risk Level 0 - 2 = Low Risk Oriented to surroundings, Maintained a safe environment, Hourly rounding (assess needs \T\ fall precautionary measures) done. Abuse screen: Denies threats or abuse. Denies injuries from another. Nutritional screening: No deficits noted. Tuberculosis screening: No symptoms or risk factors identified. Vital Signs: 21:22 BP 133 / 84; Pulse 92; Resp 17; Temp 98; Pulse Ox 99% ; Weight 68.04 kg; Height 5 ft. 9 j7 in. ; 21:22 Body Mass Index 22.15 (68.04 kg, 175.26 cm) [facility] [place] Coma Score: 07/31 19:49 Eye Response: spontaneous(4). Motor Response: obeys commands(6). Verbal Response: sp4 oriented(5). Total: 15. ED Course: 07/30 20:53 Patient arrived in ED. im 20:55 Daryl Tiwari MD is Attending Physician. sp4 21:29 Triage completed. 7 21:33 Patient has correct armband on for positive identification. ha1 22:12 Palmira Roy, RN is Primary Nurse. al5 22:18 Pelvis XRAY In Process Unspecified. EDMS 22:50 Provided Education on: follow ups . ha1 22:50 No provider procedures requiring assistance completed. ha1 22:50 Patient did not have IV access during this emergency room visit. ha1 Administered Medications: No medications were administered Medication: 22:50 VIS not applicable for this client. ha1 Outcome: 22:26 Discharge ordered by MD. sp4 22:50 Discharged to home ambulatory, ha1 22:50 Condition: stable 22:50 Discharge instructions given to patient, Instructed on discharge instructions, follow up and referral plans. Demonstrated understanding of instructions, follow-up care, 22:50 Patient left the ED. ha1 Signatures: Dispatcher [employer] EDMS Ester Oro RN RN ha1 Zac Pickett RN RN jj7 Potepalov, Sergey, MD MD sp4 Aracelis Spaulding Palmira Roy RN RN al5 Corrections: (The following items were deleted from the chart) 07/31 00:00 00:00 Patient left the ED. ha1 ha1
--- NOTE | 2024-07-30 22:27 | EDPHYS ---
Physician Documentation [facility] Name: Nam Dinero Age: 38 yrs Sex: Male : 1985 Arrival Date: 07/30/2024 Time: 20:52 Bed IW10 Private MD: ED Physician Daryl Tiwari HPI: 07/30 20:56 This 38 yrs old Black Male presents to ER via Unassigned with complaints of Prostate sp4 check. 07/31 19:49 Patient who has apparent history of schizophrenia presents with complaint of foreign sp4 body in the urethra of his penis. Patient reports foreign body seems to be on the underside of his penis. Patient presents with washcloth around his head that he states is a protection from hallucinatory experience. . Historical: - Allergies: 07/30 21:29 No Known Allergies; jj7 - PMHx: 21:29 None; jj7 - PSHx: 21:29 hernia; jj7 - Immunization history:: Client reports receiving the 2nd dose of the Covid vaccine, Flu vaccine is not up to date. - Infectious Disease History:: Denies. - Social history:: Smoking status: Patient reports the use of cigarette tobacco products, smokes more than three packs cigarettes per day. Patient uses street drugs, Methamphetamine (Meth) Patient/guardian denies using alcohol. - Family history:: not pertinent. ROS: 07/31 19:49 Constitutional: Negative for fever, chills, and weight loss, positive for reported sp4 foreign body in the urethra All other systems are negative, Exam: 19:49 Constitutional: This is a well developed, well nourished patient who is awake, alert, sp4 patient presents with washcloth around his head, also has Ketchup bag stuck to the forehead, presents with rambling speech and also periodic episodes of profuse cussing. Appears mildly agitated and restless but overall cooperative Head/Face: Normocephalic, atraumatic. Eyes: Pupils equal round and reactive to light, extra-ocular motions intact. Lids and lashes normal. Conjunctiva and sclera are not injected. Cornea within normal limits. Periorbital areas with no swelling, redness, or edema. ENT: Nares patent. No nasal discharge, no septal abnormalities noted. Tympanic membranes are normal and external auditory canals are clear. Oropharynx with no redness, swelling, or masses, exudates, or evidence of obstruction, uvula midline. Mucous membranes moist. Neck: Trachea midline, no thyromegaly or masses palpated, and no cervical lymphadenopathy. Supple, full range of motion without nuchal rigidity, or vertebral point tenderness. Chest/axilla: Normal chest wall appearance and motion. Nontender with no deformity. No lesions are appreciated. Cardiovascular: Regular rate and rhythm with a normal S1 and S2. No gallops, murmurs, or rubs. Normal PMI, no JVD. No pulse deficits. Respiratory: Lungs have equal breath sounds bilaterally, clear to auscultation and percussion. No rales, rhonchi or wheezes noted. No increased work of breathing, no retractions or nasal flaring. Abdomen/GI: Soft, with normal bowel sounds. No distension or tympany. No guarding or rebound. No evidence of tenderness throughout. Back: No spinal tenderness. No costovertebral tenderness. Male : Normal genitalia with no discharge or lesions. Normal scrotum and testicles, no inguinal hernias, no sign of embedded foreign bodies in the urethra or elsewhere. Skin: Warm, dry with normal turgor. Normal color with no rashes, no lesions, and no evidence of cellulitis. MS/ Extremity: Pulses equal, no cyanosis. Neurovascular intact. Full, normal range of motion. Neuro: Awake and alert, GCS 15, oriented to person, place Cranial nerves II-XII grossly intact. Motor strength 5/5 in all extremities. Sensory grossly intact. Psych: Awake, alert, with orientation to person, place, patient has rambling speech, mild agitation and restlessness. Also appears to have active delusions. Vital Signs: 07/30 21:22 BP 133 / 84; Pulse 92; Resp 17; Temp 98; Pulse Ox 99% ; Weight 68.04 kg; Height 5 ft. 9 j7 in. ; 21:22 Body Mass Index 22.15 (68.04 kg, 175.26 cm) [facility] Coma Score: 07/31 19:49 Eye Response: spontaneous(4). Motor Response: obeys commands(6). Verbal Response: sp4 oriented(5). Total: 15. MDM: 07/30 21:16 Medical Screening Exam initiated sp4 07/31 19:49 Differential Diagnosis altered mental status, sepsis, flu. Data reviewed: vital signs, sp4 nurses notes, old medical records, radiologic studies. 19:53 ED course: X-ray is normal revealing no signs of foreign body. Patient appears to have sp4 delusional disorder. At this time patient appears to have chronic delusions. No signs of emergent medical illness. Stable for discharge from the emergency department.. 07/30 21:37 Order name: Pelvis XRAY; Complete Time: 19:53 sp4 Administered Medications: No medications were administered Disposition Summary: 07/30/24 22:26 Discharge Ordered Notes: Location: Home sp4 Problem: new sp4 Symptoms: have improved sp4 Condition: Stable sp4 Diagnosis - Sensation of foreign body in the penis, Formication , Tactile Hallucinations sp4 Followup: sp4 - With: Private Physician - When: As needed - Reason: Discharge Instructions: - Discharge Summary Sheet sp4 - Medical Screening Exam sp4 Signatures: Dispatcher [employer] Zac Hernandez RN RN jj7 Daryl Tiwari MD MD sp4
[2024-07-31 10:43] VITALS: BP 133/84; TEMP 98; O2SAT 99
== END 2024-07-31 | disposition home or self-care (01) ==
LOC: ER 20:52
DX: R09.A9 Foreign body sensation, other site (principal); R20.2 Paresthesia of skin; R44.2 Other hallucinations
CPT/HCPCS: 72170; 99282

== ENCOUNTER 2025-02-19 23:52 | Emergency (ER) | payer SELFPAY ==
--- OUTSIDE RECORDS SUMMARY | 2025-02-19 23:57 | XMS REPORT | Continuity of Care Document ---
Author Name Unknown Address [address] [facility] [address] [place] [address] [facility] Address [address] [facility] [address] [facility] [address] [place] [address] Care Team Providers Care Commissary Representative Name Role Phone NO PHYSICIAN, . Primary Care Physician Unavailab MARTINE Keith Attending Clinician Unavailable HAMZAH MILLER Attending Clinician Unavailable FANNY BINGHAM Attending Clinician UnavailTeodoro Anne Attending Clinician Unavailable ARVIN ESPINAL Attending Clinician Unavailable ANGELES BERG Attending Clinician Unavailab MARILU Posey Attending Clinician Unavailable BROOKS LARA Attending Clinician Unavailable ZAID MENDEZ Attending Clinician Unavailable CHINTAN FREED Attending Clinician UnavailMARQUIS Tirado Attending Clinician Unavailable Physician, No Primary or Family Admitting Clinic magdi Unavailable Payers Payer Name Policy Type Policy Number Effective Date Expirati on Date Source Problems Condition Name Condition Details Condition Category Status Onset Date Resolution Date Last Treatment Date Treating Clinician Comments Source Schizophre court Complaint 06-19 12:00: 00 [facility] Hypertensi ve disorder Complaint [facility] Hyperchole sterolemia Complaint [facility] Long[facility] current use of drug therapy Complaint [facility] Psychogeni c formicatio n Problem [facility] Amphetamin e abuse Problem [facility] Cannabis abuse Problem [facility] Constipati on Problem [facility] Dehydratio n Problem [facility] Elevated blood pressure reading Problem [facility] Erectile dysfunctio n Problem [facility] Foreign body of toe of right foot Problem [facility] Left against medical advice Problem [facility] Prostatiti s Problem [facility] Eloped from emergency department Problem [facility] Genitourin ike symptoms Problem [facility] Urinary tract infection Problem [facility] Allergies, Adverse Reactions, Alerts Allergy Name Allergy Type Status Severity Reaction(s) Onset Date Inactive Date Treating Clinician Comments Source No Known Allergie s DA Active U 2023-10 0 00:00: 00 [facility] No known drug allergy Miscella neous allergy Active 1- 00:00: 00 [facility] No known drug allergy Miscella neous allergy Active 10-09 00:00: 00 [facility] Social History Social Habit Start Date Stop Date Quantity Comments Source History of tobacco use [facility] Smoking Status Start Date Stop Date Source Smokes tobacco daily (finding) 2020-11-17 09:54:00 [facility] Medications Ordered Medication Name Filled Medication Name Start Date Stop Date Current Medication? Ordering Clinician Indication Dosage Frequency Signature (SIG) Comments Components Source [facility] 2023-10 04:00: 00 12-02 05:00 :00 No 1U [facility] hydrOXYzine HCl hydrOXYzine HCl 2023-10 04:00: 00 11-02 05:00 :00 No 1{tbl} [facility] Depakote ER Depakote ER 2023-10 04:00: 00 11-02 05:00 :00 No 1{tbl} [facility] traZODone hydrochlori de traZODone hydrochlori de 2023-10 04:00: 00 11-02 05:00 :00 No 1{tbl} [facility] 11-27 05:00: 00 11-27 05:00 :00 No 1U [facility] Doxycycline (Monohydrat e) (Doxycyclin e) 100 Mg CAP Doxycycline (Monohydrat e) (Doxycyclin e) 100 Mg CAP 11-19 03:02: 00 Yes 1 [facility] Polyethylen e Glycol 3350 (Miralax) 17 Gm Packet Polyethylen e Glycol 3350 (Miralax) 17 Gm Packet 11-19 03:02: 00 Yes 1 [facility] Docusate Sodium (Colace *) 100 Mg CAP Docusate Sodium (Colace *) 100 Mg CAP 11-02 20:04: 00 Yes 1 [facility] Vital Signs Vital Name Observation Time Observation Value Comments S ource Height 2024-12-25 08:19:00 175.260787 cm Ma [facility] Weight 2024-12-25 08:19:00 63.165066 kg [facility] BMI (Body Mass Index) 2024-12-25 08:19:00 20.7 kg/m2 [facility] Height 2024-12-23 03:31:00 175.210219 cm Michaela [facility] Weight 2024-12-23 03:31:00 65.500820 kg [facility] BMI (Body Mass Index) 2024-12-23 03:31:00 21.4 kg/m2 [facility] Height 2024-08-05 09:36:00 175.246065 cm Michaela [facility] Weight 2024-08-05 09:36:00 81.609258 kg [facility] BMI (Body Mass Index) 2024-08-05 09:36:00 26.6 kg/m2 [facility] Height 2024-08-05 01:03:00 175.293576 cm Michaela [facility] Weight 2024-08-05 01:03:00 68.002090 kg [facility] BMI (Body Mass Index) 2024-08-05 01:03:00 22.2 kg/m2 [facility] Heart Rate 2024-08-07 18:13:04 93.0 /min [facility] Systolic 2024-08-07 18:13:04 141.0 mm[Hg] [facility] Diastolic 2024-08-07 18:13:04 98.0 mm[Hg] [facility] Height 2024-08-07 18:13:04 177.8 cm [facility] Weight Kgs 2024-08-07 18:13:04 62.6 KG [facility] BMI 2024-08-07 18:13:04 19.8 kg/m2 [facility] Heart Rate 2024-04-06 19:11:27 106.0 /min [facility] Systolic 2024-04-06 19:11:27 152.0 mm[Hg] [facility] Diastolic 2024-04-06 19:11:27 98.0 mm[Hg] [facility] Height 2024-04-06 19:11:27 177.8 cm [facility] Weight Kgs 2024-04-06 19:11:27 71.7 KG [facility] BMI 2024-04-06 19:11:27 22.7 kg/m2 [facility] Heart Rate 2024-01-15 13:33:46 82.0 /min [facility] Systolic 2024-01-15 13:33:46 132.0 mm[Hg] [facility] Diastolic 2024-01-15 13:33:46 89.0 mm[Hg] [facility] Height 2024-01-15 13:33:46 177.8 cm [facility] Weight Kgs 2024-01-15 13:33:46 72.1 KG [facility] BMI 2024-01-15 13:33:46 22.8 kg/m2 [facility] Heart Rate 2023-11-20 14:39:42 92.0 /min [facility] Systolic 2023-11-20 14:39:42 140.0 mm[Hg] [facility] Diastolic 2023-11-20 14:39:42 95.0 mm[Hg] [facility] Height 2023-11-20 14:39:42 177.8 cm [facility] Weight Kgs 2023-11-20 14:39:42 70.3 KG [facility] BMI 2023-11-20 14:39:42 22.2 kg/m2 [facility] Heart Rate 2023-01-16 16:19:33 72.0 /min [facility] Systolic 2023-01-16 16:19:33 130.0 mm[Hg] [facility] Diastolic 2023-01-16 16:19:33 92.0 mm[Hg] [facility] Height 2023-01-16 16:19:33 176.5 cm [facility] Weight Kgs 2023-01-16 16:19:33 86.6 KG [facility] BMI 2023-01-16 16:19:33 27.8 kg/m2 [facility] Heart Rate 2022-11-13 15:41:02 83.0 /min [facility] Systolic 2022-11-13 15:41:02 127.0 mm[Hg] [facility] Diastolic 2022-11-13 15:41:02 83.0 mm[Hg] [facility] Height 2022-11-13 15:41:02 176.5 cm [facility] Systolic 2022-11-05 15:59:38 121.0 mm[Hg] [facility] Diastolic 2022-11-05 15:59:38 85.0 mm[Hg] [facility] Height 2022-11-05 15:59:38 176.5 cm [facility] Weight Kgs 2022-11-05 15:59:38 85.7 KG [facility] BMI 2022-11-05 15:59:38 27.5 kg/m2 [facility] Heart Rate 2022-11-05 15:59:38 93.0 /min [facility] Heart Rate 2022-08-06 16:21:20 71.0 /min [facility] Systolic 2022-08-06 16:21:20 128.0 mm[Hg] [facility] Diastolic 2022-08-06 16:21:20 81.0 mm[Hg] [facility] Height 2022-08-06 16:21:20 176.5 cm [facility] Weight Kgs 2022-08-06 16:21:20 94.3 KG [facility] BMI 2022-08-06 16:21:20 30.3 kg/m2 [facility] Encounters Start Date/Time End Date/Time Encounter Type Admission Type Attending [facility] Care Department Encounter ID Source 2023-05-24 15:21:08 Inpatient TEXANA TEXANA [id number] [facility] 2023-01-16 11:30:14 Inpatient TEXANA TEXANA [id number] [facility] 2022-11-12 11:17:16 Inpatient TEXANA TEXANA [id number] [facility] 2022-11-10 23:08:24 Inpatient TEXANA TEXANA [id number] [facility] 2022-11-05 09:50:54 Inpatient TEXANA TEXANA [id number] [facility] 2022-08-06 11:55:36 Inpatient TEXANA TEXANA [id number] [facility] 2022-07-03 14:40:59 Inpatient TEXANA TEXANA [id number] [facility] 2022-04-26 10:51:45 [facility] [id number] [facility] 2022-04-11 16:28:03 [facility] [id number] [facility] 2024-12-25 08:11:00 2024-12-25 08:27:00 Emergency ER MARTINE GIBSON [facility] [id number] [facility] 2024-12-25 08:11:00 2024-12-25 08:27:00 Departed Emergency Room [facility] [id number] [facility] 2024-12-23 03:27:00 2024-12-23 03:41:00 Emergency ER HAMZAH MILLER [facility] [id number] [facility] 2024-12-23 03:27:00 2024-12-23 03:41:00 Departed Emergency Room [facility] [id number] [facility] 2024-08-05 09:25:00 2024-08-05 10:47:00 Emergency ER FANNY BINGHAM [facility] [id number] [facility] 2024-08-05 09:25:00 2024-08-05 10:47:00 Departed Emergency Room [facility] [id number] [facility] 2024-08-05 00:51:00 2024-08-05 03:56:00 Departed Emergency Room [facility] [id number] [facility] 2024-08-01 22:22:00 2024-08-02 01:20:00 Emergency EM Teodoro Phillips [facility] CIARA [id number] [facility] 2023-12-31 08:30:00 2023-12-31 08:30:00 Outpatient UNKNOWN ARVIN ESPINAL [facility] [id number] 2023-11-19 01:01:00 2023-11-19 03:26:00 Emergency ER ANGELES BERG [facility] [id number] [facility] 2023-11-02 17:53:00 2023-11-02 20:46:00 Emergency ER FANNY BINGHAM [facility] [id number] [facility] 2023-11-02 17:53:00 2023-11-02 17:53:00 emergency [facility] [id number] 2023-11-01 11:32:00 2023-11-01 14:07:00 Emergency ER MARILU FERRER [facility] [id number] [facility] 2023-11-01 11:32:00 2023-11-01 14:07:00 emergency [facility] [id number] 2022-07-17 10:54:00 2022-07-17 12:36:00 Emergency ER FANNY BINGHAM [facility] [id number] [facility] 2022-07-17 10:54:00 2022-07-17 12:36:00 emergency [id number] 2022-04-11 17:27:00 2022-04-11 17:27:00 Outpatient INTERNAL [facility] REFERRAL^^ 4^INTERNAL [facility] REFERRAL^^ 4^INTERNAL [facility] REFERRAL^^ 4 TEXANA TEXANA [id number] [facility] 2022-04-11 16:27:00 2022-04-11 16:27:00 Outpatient INTERNAL [facility] REFERRAL VERO PHAM [id number] [facility] 2021-08-09 13:10:00 2021-08-09 13:10:00 Outpatient OTHER LOCAL AUTHORITY BROOKS LARA [id number] [facility] 2021-08-09 13:10:00 2021-08-09 13:10:00 Outpatient OTHER LOCAL AUTHORITY BROOKS LARA [id number] [facility] 2020-11-17 09:32:00 2020-11-17 10:15:00 Emergency ER ANDREA ZAID [facility] [id number] [facility] 2020-05-04 11:40:00 2020-05-05 00:03:00 Emergency E CHINTAN FREED [facility] [id number] [facility] 2003-03-05 12:56:00 2003-03-05 14:35:00 Emergency ER MARQUIS BORDEN [facility] [id number] [facility] Results Test Description Test Time Test Comments Results Result Co mments Source [facility] CtrLactic [id number] 02:55:00* Test Item Value Reference Range Interpretation Comme nts Lactic Acid Level (test code = MIM5442) 0.94 [facility] CtrBilirubin [id number] 02:54:00* Test Item Value Reference Range Interpretation Comme nts Total Bilirubin (test code = RBW6098) 0.4 [facility] CtrSerum or plasma urea nitrogen measurement (mass/volume)2024-08-05 02:54:00* Test Item Value Reference Range Interpretation Comme nts Blood Urea Nitrogen (test co de = 3094-0) 12 [facility] [id number] 02:54:00* Test Item Value Reference Range Interpretation Comme nts Aspartate Amino Transf (AST/ SGOT) (test code = GFB0226) 29 [facility] CtrCreatinine [id number] 02:54:00* Test Item Value Reference Range Interpretation Comme nts Creatinine (test code = 962493789) 0.88 [facility] CtrEstimated glomerular filtration rate (GFR) uzkgurnyarxps3105-79-88 02:54:00* Test Item Value Reference Range Interpretation Comme nts Glomerular Filtration Rate C alc (test code = 822010047) > 60.00 [facility] CtrBUN/creatinine jptyx2950-05-31 02:54:00* Test Item Value Reference Range Interpretation Comme nts BUN/Creatinine Ratio (test c ode = 22389305) 13.6 [facility] CtrBody fluid potassium nxzblfplpnl9153-78-47 02:54:00* Test Item Value Reference Range Interpretation Comme nts Potassium Level (test code = 2821-7) 3.6 [facility] [id number] 02:54:00* Test Item Value Reference Range Interpretation Comme nts Carbon Dioxide Level (test c ode = 81094063) 22 [facility] CtrAnion gap qyjgdldhmrm2560-11-13 02:54:00* Test Item Value Reference Range Interpretation Comme nts Anion Gap (test code = 73983172) 17.6 [facility] CtrCalcium gthis2737-23-90 02:54:00* Test Item Value Reference Range Interpretation Comme nts Calcium Level (test code = 38310780) 9.4 [facility] CtrGlobulin wil4190-70-31 02:54:00* Test Item Value Reference Range Interpretation Comme nts Globulin (test code = 454141291) 2.8 [facility] CtrALT (SGPT) ser/gelu9707-80-78 02:54:00* Test Item Value Reference Range Interpretation Comme nts Alanine Aminotransferase (AL T/SGPT) (test code = 1742-6) 24 [facility] CtrALP ser/oqca4403-84-89 02:54:00* Test Item Value Reference Range Interpretation Comme nts Total Alkaline Phosphatase ( test code = 6768-6) 77 [facility] CtrBilirubin xznhd7288-25-33 02:54:00* Test Item Value Reference Range Interpretation Comme nts Total Bilirubin (test code = IMU6413) 0.4 [facility]trSerum or plasma urea nitrogen measurement (mass/volume)2024-08-05 02:54:00* Test Item Value Reference Range Interpretation Comme nts Blood Urea Nitrogen (test co de = 3094-0) 12 [facility] [id number] 02:54:00* Test Item Value Reference Range Interpretation Comme nts Aspartate Amino Transf (AST/ SGOT) (test code = TPZ2775) 29 [facility] CtrCreatinine sgtgs1458-21-02 02:54:00* Test Item Value Reference Range Interpretation Comme nts Creatinine (test code = 058452039) 0.88 [facility] CtrEstimated glomerular filtration rate (GFR) hmvggitjgppsm1509-42-98 02:54:00* Test Item Value Reference Range Interpretation Comme [facility] Glomerular Filtration Rate C alc (test code = 720740522) > 60.00 [facility] CtrBUN/creatinine skzyg8823-82-87 02:54:00* Test Item Value Reference Range Interpretation Comme nts BUN/Creatinine Ratio (test c ode = 17479887) 13.6 [facility] CtrBody fluid potassium hxnnnhyfunr6535-50-61 02:54:00* Test Item Value Reference Range Interpretation Comme nts Potassium Level (test code = 2821-7) 3.6 [facility] RxtPC80575-07-07 02:54:00* Test Item Value Reference Range Interpretation Comme nts Carbon Dioxide Level (test c ode = 40750938) 22 [facility] CtrAnion gap lutuhevsfkm1593-00-52 02:54:00* Test Item Value Reference Range Interpretation Comme nts Anion Gap (test code = 14145376) 17.6 [facility] CtrCalcium feurl4947-42-22 02:54:00* Test Item Value Reference Range Interpretation Comme nts Calcium Level (test code = 75109268) 9.4 [facility] CtrGlobulin enq7524-43-49 02:54:00* Test Item Value Reference Range Interpretation Comme nts Globulin (test code = 342060023) 2.8 [facility] CtrALT (SGPT) ser/gvbk8640-13-17 02:54:00* Test Item Value Reference Range Interpretation Comme nts Alanine Aminotransferase (AL T/SGPT) (test code = 1742-6) 24 [facility] CtrALP ser/ckam6937-93-56 02:54:00* Test Item Value Reference Range Interpretation Comme [facility] Total Alkaline Phosphatase ( test code = 6768-6) 77 [facility] CtrAbsolute eosinophil [id number] 02:25:00* Test Item Value Reference Range Interpretation Comme [facility] Eosinophils # (Auto) (test c ode = KIU7042) 0.07 [facility] CtrRBC qrqho1510-16-20 02:25:00* Test Item Value Reference Range Interpretation Comme [facility] Red Blood Count (test code = 17823942) 4.54 [facility] BmqInygdykdnx3617-63-25 02:25:00* Test Item Value Reference Range Interpretation Comme [facility] Hematocrit (test code = 25136424) 39.9 [facility] CtrMCV (mean corpuscular volume) determination 2024-08-05 02:25:00* Test Item Value Reference Range Interpretation Comme [facility] Mean Corpuscular Volume (lori t code = 76802-8) 87.9 [facility] CtrMean corpuscular hemoglobin (MCH) determination 2024-08-05 02:25:00* Test Item Value Reference Range Interpretation Comme [facility] Mean Corpuscular Hemoglobin (test code = 61488312) 28.[address] [facility] corpus[facility] hemoglobin concentration (MCHC) uwiqucynogbtl9603-35-85 02:25:00* Test Item Value Reference Range Interpretation Comme [facility] Mean Corpuscular Hemoglobin Concent (test code = 58981494) 32.8 [facility] CtrRBC distribution width coefficient of variation 2024-08-05 02:25:00* Test Item Value Reference Range Interpretation Comme [facility] Red Cell Distribution Width (test code = 28403265) 12.7 [facility] CtrPlatelet vjnib6523-08-07 02:25:00* Test Item Value Reference Range Interpretation Comme [facility] Platelet Count (test code = 88275673) 307 [facility] CtrMean platelet avtygj2060-30-09 02:25:00* Test Item Value Reference Range Interpretation Comme nts Mean Platelet Volume (test c ode = 78231153) 10.4 [facility] CtrNeutrophils seg % haa8744-13-47 02:25:00* Test Item Value Reference Range Interpretation Comme nts Neutrophils (%) (Auto) (test code = 65325-3) 58.2 [facility] CtrAbsolute immature granulocyte vqajk5910-64-49 02:25:00* Test Item Value Reference Range Interpretation Comme nts Absolute Immature Granulocyt e (auto (test code = 76428-8) 0.02 [facility] CtrBlood band neutrophils count (number/volume) 2024-08-05 02:25:00* Test Item Value Reference Range Interpretation Comme nts Neutrophils # (Auto) (test c ode = 01698-9) 5.85 [facility] CtrAbsolute lymphocyte dmqxy8559-16-83 02:25:00* Test Item Value Reference Range Interpretation Comme nts Lymphocytes # (Auto) (test c ode = 75992-2) 3.21 [facility] CtrAbsolute basophil lkahf1951-67-38 02:25:00* Test Item Value Reference Range Interpretation Comme nts Basophils # (Auto) (test cod e = 18198091) 0.05 [facility] CtrAbsolute NRBC gyjhj3065-57-06 02:25:00* Test Item Value Reference Range Interpretation Comme nts Nucleated Red Blood Cells # (test code = 886120699) 0 [facility] CtrAbsolute eosinophil lcfnr0999-04-10 02:25:00* Test Item Value Reference Range Interpretation Comme nts Eosinophils # (Auto) (test c ode = RKE3815) 0.07 [facility] CtrRBC gtupt4336-41-98 02:25:00* Test Item Value Reference Range Interpretation Comme [facility] Red Blood Count (test code = 07784551) 4.54 [facility] GceUqisprygex4519-93-54 02:25:00* Test Item Value Reference Range Interpretation Comme nts Hematocrit (test code = 94921427) 39.9 [facility] CtrMCV (mean corpuscular volume) determination 2024-08-05 02:25:00* Test Item Value Reference Range Interpretation Comme [facility] Mean Corpuscular Volume (lori t code = 89349-5) 87.9 [facility] CtrMean corpuscular hemoglobin (MCH) determination 2024-08-05 02:25:00* Test Item Value Reference Range Interpretation Comme [facility] Mean Corpuscular Hemoglobin (test code = 83879225) 28.9 [facility] CtrMean corpuscular hemoglobin concentration (MCHC) qphucawftsonj6876-36-86 02:25:00* Test Item Value Reference Range Interpretation Comme [facility] Mean Corpuscular Hemoglobin Concent (test code = 39769841) 32.8 [facility] CtrRBC distribution width coefficient of variation 2024-08-05 02:25:00* Test Item Value Reference Range Interpretation Comme [facility] Red Cell Distribution Width (test code = 79326411) 12.7 [facility] CtrPlatelet ljgre5514-50-66 02:25:00* Test Item Value Reference Range Interpretation Comme [facility] Platelet Count (test code = 59351838) 307 [facility] CtrMean platelet cylupb9409-19-38 02:25:00* Test Item Value Reference Range Interpretation Comme [facility] Mean Platelet Volume (test c ode = 46538161) 10.4 [facility] CtrNeutrophils seg % nca9924-17-06 02:25:00* Test Item Value Reference Range Interpretation Comme [facility] Neutrophils (%) (Auto) (test code = 74335-9) 58.2 [facility] CtrAbsolute immature granulocyte iutbr1260-84-73 02:25:00* Test Item Value Reference Range Interpretation Comme [facility] Absolute Immature Granulocyt e (auto (test code = 17164-7) 0.02 [facility] CtrBlood band neutrophils count (number/volume) 2024-08-05 02:25:00* Test Item Value Reference Range Interpretation Comme nts Neutrophils # (Auto) (test c ode = 46538-5) 5.85 [facility] CtrAbsolute lymphocyte vnlmz2391-77-14 02:25:00* Test Item Value Reference Range Interpretation Comme nts Lymphocytes # (Auto) (test c ode = 95998-4) 3.21 [facility] CtrAbsolute basophil sblgh5026-50-55 02:25:00* Test Item Value Reference Range Interpretation Comme nts Basophils # (Auto) (test cod e = 57535525) 0.05 [facility] CtrAbsolute NRBC oqtye1021-60-02 02:25:00* Test Item Value Reference Range Interpretation Comme nts Nucleated Red Blood Cells # (test code = 533183550) 0 [facility] CtrUrine czcuyqb8347-61-61 01:50:00* Test Item Value Reference Range Interpretation Comme nts Urine Culture (test code = 630-4) SPECIMEN HAS BEEN RECEIVED IN LAB AND IS IN PROGRESS. [facility] [id number] 01:50:00* Test Item Value Reference Range Interpretation Comme nts Urine Culture (test code = 630-4) SPECIMEN HAS BEEN RECEIVED IN LAB AND IS IN PROGRESS. [facility] examination for white blood cells (WBC) 2024-08-05 01:48:00* Test Item Value Reference Range Interpretation Comme nts Urine WBC (test code = 266435189) 03-[address] [facility] [address] [facility] examination for white blood cells (WBC) 2024-08-05 01:48:00* Test Item Value Reference Range Interpretation Comme nts Urine WBC (test code = 802373807) 03-16 [facility] CtrRBC count ur [id number] 01:42:00* Test Item Value Reference Range Interpretation Comme nts Urine RBC (test code = 798-9) >100 [facility] CtrAutomated epithelial cells count in urine sediment (number/area)2024-08-05 01:42:00* Test Item Value Reference Range Interpretation Comme nts Urine Epithelial Cells (test code = 12604-2) 0-2 [facility] CtrBacteria detection in urine sediment by light iwfemxyvmb7884-96-86 01:42:00* Test Item Value Reference Range Interpretation Comme nts Urine Bacteria (test code = 34875-7) None [facility]en [facility] casts detection by automated method 2024-08-05 01:42:00* Test Item Value Reference Range Interpretation Comme nts Urine Casts (test code = 70967-6) 3-5 [facility] CtrRBC count ur [id number] 01:42:00* Test Item Value Reference Range Interpretation Comme nts Urine RBC (test code = 798-9) >100 [facility] CtrAutomated epithelial cells count in urine sediment (number/area)2024-08-05 01:42:00* Test Item Value Reference Range Interpretation Comme nts Urine Epithelial Cells (test code = 49045-9) 0-2 [facility] CtrBacteria detection in urine sediment by light [id number] 01:42:00* Test Item Value Reference Range Interpretation Comme nts Urine Bacteria (test code = 72666-1) None Seen [facility] CtrUrine casts detection by automated method 2024-08-05 01:42:00* Test Item Value Reference Range Interpretation Comme nts Urine Casts (test code = 78100-0) 3-[address] [facility] [address] glucose pnafmlwpu0648-05-36 01:37:00* Test Item Value Reference Range Interpretation Comme nts Urine Glucose (UA) (test cod e = 2349-9) Negative [facility] CtrBilirubin [id number] 01:37:00* Test Item Value Reference Range Interpretation Comme nts Urine Bilirubin (test code = 395767607) Negative [facility] CtrKetones [id number] 01:37:00* Test Item Value Reference Range Interpretation Comme nts Urine Ketones (test code = 20627073) Trace [facility] CtrSpecific gravity of Urine by Automated test strip 2024-08-05 01:37:00* Test Item Value Reference Range Interpretation Comme nts Urine Specific Tilden (test code = 39121-0) 1.012 [facility] CtrUrine blood [id number] 01:37:00* Test Item Value Reference Range Interpretation Comme nts Urine Blood (test code = 03842-0) 3+ (LARGE) [facility] CtrpH [id number] 01:37:00* Test Item Value Reference Range Interpretation Comme nts Urine pH (test code = 2756-5) 5.500 [facility] CtrProtein [id number] 01:37:00* Test Item Value Reference Range Interpretation Comme nts Urine Protein (test code = 87235835) 2+ [facility] CtrUrobilinogen, urine, [id number] 01:37:00* Test Item Value Reference Range Interpretation Comme nts Urine Urobilinogen (test cod e = 311751655) 1.0 [facility] CtrUrine nitrate [id number] 01:37:00* Test Item Value Reference Range Interpretation Comme nts Urine Nitrate (test code = 98465-2) Negative [facility] HospitalU[facility] leukocyte esterase [id number] 01:37:00* Test Item Value Reference Range Interpretation Comme nts Urine Leukocyte Esterase (te st code = 342598662) Trace [facility] CtrColor of Urine by [id number] 01:37:00* Test Item Value Reference Range Interpretation Comme nts Urine Color (test code = 43558-8) Frio [facility] CtrAppearance of [id number] 01:37:00* Test Item Value Reference Range Interpretation Comme nts Urine Appearance (test code = 5767-9) Cloudy [facility] HospitalU[facility] glucose [id number] 01:37:00* Test Item Value Reference Range Interpretation Comme nts Urine Glucose (UA) (test cod e = 2349-9) Negative [facility] CtrBilirubin [id number] 01:37:00* Test Item Value Reference Range Interpretation Comme nts Urine Bilirubin (test code = 701787646) Negative [facility] CtrKetones [id number] 01:37:00* Test Item Value Reference Range Interpretation Comme nts Urine Ketones (test code = 08698693) Trace [facility] CtrSpecific gravity of Urine by Automated test strip 2024-08-05 01:37:00* Test Item Value Reference Range Interpretation Comme nts Urine Specific [place] (test code = 76613-9) 1.[address] [facility] HospitalU[facility] blood [id number] 01:37:00* Test Item Value Reference Range Interpretation Comme nts Urine Blood (test code = 69340-8) 3+ (LARGE) [facility] CtrpH [id number] 01:37:00* Test Item Value Reference Range Interpretation Comme [facility] Urine pH (test code = 2756-5) 5.500 [facility] CtrProtein [id number] 01:37:00* Test Item Value Reference Range Interpretation Comme [facility] Urine Protein (test code = 86439304) 2+ [facility] CtrUrobilinogen, urine, [id number] 01:37:00* Test Item Value Reference Range Interpretation Comme [facility] Urine Urobilinogen (test cod e = 463351249) 1.0 [facility] CtrUrine nitrate fjwshtqll5769-55-74 01:37:00* Test Item Value Reference Range Interpretation Comme [facility] Urine Nitrate (test code = 69131-4) Negative [facility] leukocyte esterase bmkfjyrcl8775-05-75 01:37:00* Test Item Value Reference Range Interpretation Comme [facility] Urine Leukocyte Esterase (te st code = 369061402) Trace [facility] CtrColor of Urine by [id number] 01:37:00* Test Item Value Reference Range Interpretation Comme [facility] Urine Color (test code = 65134-3) Frio [facility] CtrAppearance of [id number] 01:37:00* Test Item Value Reference Range Interpretation Comme [facility] Urine Appearance (test code = 5767-9) Cloudy [facility] CtrUA RFLX MICR CULT IF [id number] 00:01:00 * Test Item Value Reference Range Interpretation Comme nts UA COLOR (test code = COLU) YELLOW YELLOW UA APPEARANCE (test code = APPU) CLEAR CLEAR UA GLUCOSE DIPSTICK (test code = DGLUU) NEGATIVE mg/dL NEGATIVE UA BILIRUBIN DIPSTICK (test code = BILU) NEGATIVE NEGATIVE UA KETONE DIPSTICK (test code = KETU) 5 NEGATIVE UA SPECIFIC GRAVITY (test code = SGU) >1.030 1.005-1.015 UA BLOOD DIPSTICK (test code = HU) NEGATIVE NEGATIVE UA PH DIPSTICK (test code = DEBORAH) 6.0 5.0-7.0 UA PROTEIN DIPSTICK (test code = PROU) 1+ NEGATIVE UA UROBILINIOGEN DIPSTICK (test code = URO) 4.0 NORMAL UA NITRITE DIPSTICK (test code = SAKINA) NEGATIVE NEGATIVE UA LEUKOCYTE ESTERASE DIPSTICK (test code = LEUU) 1+ NEGATIVE A UA WBC (test code = WBCU) 3-5 #WBC/HPF 0-3 A UA RBC (test code = RBCU) 1-3 #RBC/HPF 0-3 UA BACTERIA (test code = BACU) TRACE /HPF NONE-TRACE UA SQUAMOUS CELLS (test code = SQU) TRACE /HPF NONE UA MUCUS (test code = MUCU) 1+ /LPF NONE SEEN UA CULTURE NEEDED? (test code = UACULT) NO, WBC<10 Criteria Culture CHK Indication for culture: Gross HematuriaSOURCE OF URINE: CLEAN CATCHCBC W/AUTO [id number] 23:56:00* Test Item Value Reference Range Interpretation Comme nts WHITE BLOOD CELL (test code = WBC) 7.1 K/mm3 3.5-11.0 N RED BLOOD CELL (test code = RBC) 4.84 M/mm3 4.70-6.10 N HEMOGLOBIN (test code = HGB) 13.9 G/DL 12.3-15.9 N HEMATOCRIT (test code = HCT) 43.6 % 35.8-46.7 N MEAN CELL VOLUME (test code = MCV) 90.1 Fl 86.3-98.9 N MEAN CELL HGB (test code = MCH) 28.7 pg 28.9-34.4 L MEAN CELL HGB CONCETRATION (test code = MCHC) 31.9 G/DL 32.1-34.5 L RED CELL DISTRIBUTION WIDTH (test code = RDW) 12.9 SD 11.5-14.5 N PLATELET COUNT (test code = PLT) 300 K/mm3 150-450 N MEAN PLATELET VOLUME (test c ode = MPV) 10.20 fL 7.0-9.6 H NEUTROPHIL % (test code = NT%) 30.5 % 40-76 L IMMATURE GRANULOCYTE % (test code = IG%) 0.1 % 0.0-5.0 N LYMPHOCYTE % (test code = LY%) 58.5 % 20.5-51.1 H MONOCYTE % (test code = MO%) 6.8 % 1.7-9.3 N EOSINOPHIL % (test code = EO%) 3.5 % 0.0-6.0 N BASOPHIL % (test code = BA%) 0.6 % 0.0-2.0 N NUCLEATED RBC % (test code = NRBC%) 0.0 /100WBC% 0.0-1.0 N NEUTROPHIL # (test code = NT#) 2.2 K/mm3 1.8-7.6 N IMMATURE GRANULOCYTE # (test code = IG#) 0.01 x10 3/uL 0.00-0.03 N LYMPHOCYTE # (test code = LY#) 4.2 K/mm3 0.6-3.0 H MONOCYTE # (test code = MO#) 0.5 K/mm3 0.2-1.5 N EOSINOPHIL # (test code = EO#) 0.3 K/mm3 0.0-0.4 N BASOPHIL # (test code = BA#) 0.0 K/mm3 0.0-0.2 N NUCLEATED RBC # (test code = NRBC#) 0.0 K/mm3 0.00-0.01 N RBC [id number] 23:56:00* Test Item Value Reference Range Interpretation Comme nts POLYCHROMASIA (test code = POLC) TRACE ON SCAN NONE MICROCYTOSIS (test code = MICR) TRACE ON SCAN NONE MACROCYTOSIS (test code = MACR) TRACE ON SCAN NONE SPHEROCYTES (test code = SPH) TRACE ON SCAN NONE TEAR DROP CELLS (test code = TEAR) TRACE ON SCAN NONE PLATELET ESTIMATE (test code = PLTEST) ADEQUATE THOUSAND ADEQUATE PLATELET MORPHOLOGY (test code = PLTMORPH) NORMAL Notes <thead> Date/Time Note Provider Source [facility] [id number] 08:30:38 Future Tests Future scheduled test information is unavailable Pending Tests Pending diagnostic test information is unavailable Future Visits Future appointment information is unavailable Referrals to Other Providers <thead> Reason for Referral Referral Start Date Provider Provider Contact Information Provider Address NO PHYSICIAN NO PHYSICIAN NO PHYSICIAN NO PHYSICIAN NO PHYSICIAN NO PHYSICIAN NO PHYSICIAN NO PHYSICIAN Future Procedures <thead> Procedure Name Ordered Date Scheduled Date Wound Care December 23, 2024 3:33am December 232024 Future Medications Future medication information is unavailable Patient Instructions <tbody> Skin Foreign Body Erectile Dysfunction Dehydration, Adult, Easy-to- Read Constipation, Adult, Easy-to -Read Erectile Dysfunction Prostatitis, Vfym-pz-Trff [facility] Plp9959-29-21 03:42:24 Patient Care Team <thead> Team Status: Active Member Role Status Dates . NO PHYSICIAN primary care physician Active RADHA MCKEON Next of Kin Active RADHA MCKEON Emergency Contact Active RAND MCKEON Guarantor Active [facility] Oti2162-28-72 03:42:24 Future Tests Future scheduled test information is unavailable Pending Tests Pending diagnostic test information is unavailable Future Visits Future appointment information is unavailable Referrals to Other Providers <thead> Reason for Referral Referral Start Date Provider Provider Contact Information Provider Address NO PHYSICIAN NO PHYSICIAN NO PHYSICIAN NO PHYSICIAN NO PHYSICIAN NO PHYSICIAN NO PHYSICIAN Future Procedures <thead> Procedure Name Ordered Date Scheduled Date FOOT 3 VIEWS RIGHT December 23, 2024 3:33am December 23, 2024 3:31am Wound Care December 23, 2024 3:33am December 232024 Future Medications Future medication information is unavailable Patient Instructions <tbody> Skin Foreign Body Erectile Dysfunction Dehydration, Adult, Easy-to- Read Constipation, Adult, Easy-to -Read Erectile Dysfunction Prostatitis, Qlgr-er-Xdij [facility]2024-11-02 02:23:45No ResultsGIDEON Granados [id number] 02:23:45No ResultsMSCLARICE THE [facility]ALTH SYSTEMZinaMun[facility] HospitalTmdwcv1543-92-54 02:23:45 SatAug 05 08:00:00 EDT 2023: "I love nature. I love to fish. I'm intelligent." SatNov 05 07:00:00 EST 2022: "I love nature. I love to fish. I'm intelligent." SatMar 17 08:00:00 EDT 2023: "I love nature. I love to fish. I'm intelligent." SatNov 18 07:00:00 EST 2023: "I love nature. I love to fish. I'm intelligent." G[facility]ON [facility] SYSTEMRosibel Ieizuc4877-08-17 02:23:45 Goals Improve mood- During the 90 days, Rand will take his medications as prescribed and not miss more than one medication dosage. He will report any side effects to either the nurse and/or prescriber. During the next 90 days, Rand will continue to identify 3 ways he is coping with any psychosis and report them to his childcare attendant. Interventions Med training and supports Psychosocial Rehab Peer Support Pharmacological Management Med training and supports Psychosocial Rehab Peer Support Pharmacological Management Skills Training and Support Med training and supports Case Management Peer Support Pharmacological Management Skills Training and Support Med training and supports Case Management Peer Support Pharmacological Management Laboratory Orders Start Date 7 Drug-Scr SatFebruary 04 08:00:00 EDT 2023 CBC With Differential/Platelet Sat 1 08:00:00 EDT 2023 Comp. Metabolic Panel (14) SatFebruary 04 08 :00:00 EDT 2023 Glucose SatFebruary 04 08:00:00 EDT 2023 Lipid Panel SatFebruary 04 08:00:00 EDT 2023 Thyroid Panel With TSH SatFebruary 04 08:00: 00 EDT 2023 [id number] Drug-Scr SatNov 05 07:00:00 EST 2022 CBC With Differential/Platelet SatOct 09 0 07:00:00 EST 2022 Comp. Metabolic Panel (14) SatNov 05 07 :00:00 EST 2022 Glucose SatNov 05 07:00:00 EST 2022 Lipid Panel SatNov 05 07:00:00 EST 2022 Thyroid Panel With TSH SatNov 05 07:00: 00 EST 2022 Date and Time Service Provider SatAug 07 09:30:00 EDT 2023 med injection AMB ER SHAMSIDDDONATO MENESES Darwin [id number] 06:03:13No [facility] 2024-[facility]-06 06:03:13[facility] 06:03:13Wed Aug 05 08:00:00 EDT 2023: "I love nature. I love to fish. I'm intelligent." SatNov 05 07:00:00 EST 2022: "I love nature. I love to fish. I'm intelligent." SatMar 17 08:00:00 EDT 2023: "I love nature. I love to fish. I'm intelligent." SatNov 18 07:00:00 EST 2023: "I love nature. I love to fish. I'm intelligent." Brooks Monterroso Ydgddq6285-43-21 06:03:13 Goals Improve mood- During the nex t 90 days, Rand will take his medications as prescribed and not miss more than one medication dosage. He will report any side effects to either the nurse and/or prescriber. During the next 90 days, Rand will continue to identify 3 ways he is coping with any psychosis and report them to his childcare attendant. Interventions Med training and supports Psychosocial Rehab Peer Support Pharmacological Management Med training and supports Psychosocial Rehab Peer Support Pharmacological Management Skills Training and Support Med training and supports Case Management Peer Support Pharmacological Management Skills Training and Support Med training and supports Case Management Peer Support Pharmacological Management Laboratory Orders Start Date 7 Drug-Scr SatFebruary 04 08:00:00 EDT 2023 CBC With Differential/Platelet Sat 0 1 08:00:00 EDT 2023 Comp. Metabolic Panel (14) SatFebruary 04 08 :00:00 EDT 2023 Glucose SatFebruary 04 08:00:00 EDT 2023 Lipid Panel SatFebruary 04 08:00:00 EDT 2023 Thyroid Panel With TSH SatFebruary 04 08:00: 00 EDT 2023 [id number] Drug-Scr SatNov 05 07:00:00 EST 2022 CBC With Differential/Platelet Sat 3 0 07:00:00 EST 2022 Comp. Metabolic Panel (14) SatNov 05 07 :00:00 EST 2022 Glucose SatNov 05 07:00:00 EST 2022 Lipid Panel SatNov 05 07:00:00 EST 2022 Thyroid Panel With TSH SatNov 05 07:00: 00 EST 2022 Brooks Monterroso Ngctew9943-11-11 11:14:06 Patient Care Team <thead> Team Status: Active Member Role Status Dates . NO PHYSICIAN primary care physician Active HAMZAH MILLER DO Emergency Provider Active RADHA MCKEON Next of Kin Active RADHA MCKEON Emergency Contact Active RAND MCKEON Guarantor Active [facility] [id number] 11:14:06 Future Tests Future scheduled test information is unavailable Pending Tests Pending diagnostic test information is unavailable Future Visits Future appointment information is unavailable Referrals to Other Providers <thead> Reason for Referral Referral Start Date Provider Provider Contact Information Provider Address NO PHYSICIAN NO PHYSICIAN NO PHYSICIAN NO PHYSICIAN NO PHYSICIAN NO PHYSICIAN Future Procedures Future procedure information is unavailable Future Medications Future medication information is unavailable Patient Instructions <tbody> Skin Foreign Body Erectile Dysfunction Dehydration, Adult, Easy-to- Read Constipation, Adult, Easy-to -Read Erectile Dysfunction Prostatitis, Nfzs-ny-Xagz [facility] Wsn4572-54-42 03:57:31 Patient Care Team <thead> Team Status: Active Member Role Status Dates . NO PHYSICIAN primary care physician Active HAMZAH MILLER DO Emergency Provider Active RADHA MCKEON Next of Kin Active RADHA MIKE Emergency Contact Active RAND MCKEON Guarantor Active [facility] Zej9669-82-61 03:57:31 Future Tests Future scheduled test information is unavailable Pending Tests Pending diagnostic test information is unavailable Future Visits Future appointment information is unavailable Referrals to Other Providers <thead> Reason for Referral Referral Start Date Provider Provider Contact Information Provider Address NO PHYSICIAN NO PHYSICIAN NO PHYSICIAN NO PHYSICIAN NO PHYSICIAN Future Procedures <thead> Procedure Name Ordered Date Scheduled Date CT ABD & PELVIS W August 05, 2024 2:04am Octo slick 2023 2:01am US TESTICULAR August 05, 2024 2:04am Octobe r 2023 2:01am Future Medications Future medication information is unavailable Patient Instructions <tbody> Skin Foreign Body Erectile Dysfunction Dehydration, Adult, Easy-to- Read Constipation, Adult, Easy-to -Read Erectile Dysfunction Prostatitis, Inqj-kv-Hwyp [facility] Zdu1104-49-58 23:04:00 [facility] ([facility] EMERGENCY PROVIDER REPORT REPORT#:[id number] REPORT STATUS: Signed DATE:08/01/24 TIME:2303 PATIENT: RAND MCKEON UNIT #: [id number] ROOM/BED: : 83 AGE: 38 SEX: M PCP PHYS: No Primary or Family Physician SERVICE AUTHOR: Teodoro Phillips DO REP SRV REP SRV TM: 2304 * ALL edits or amendments must be made on the electronic/computer document * HPI- Male Free Text HPI Notes Free Text HPI Notes 38-year-old male presents to the emergency department with a chief complaint of right sided inguinal pain, hematuria for 1 week. Denies any prior history of renal stone disease. Patient states he saw several doctors, 1 took x-rays, and has not had results back. Patient does not know what is causing symptoms, and wanted to be evaluated. General Initial Greet Date/Time 08/01/242239 Presentation Chief Complaint Dysuria Review of Systems ROS Statements All systems rev neg except as marked. Past Medical History - Adult Stated Complaint PT STATES-HERNIA SURG INJURY-R LOWER ABD Allergies Coded Allergies: No Known Allergies (08/01/24) Physical Exam Vital Signs Vital Signs First Documented: Result Date Time Pulse Ox 99 08/01 2230 B/P 140/80 08/01 2230 B/P Mean 100 08/01 2230 O2 Delivery Room air 08/01 2230 Temp 36.8 08/01 2230 Pulse 81 08/01 2230 Resp 16 08/01 2230 Last Documented: Result Date Time Pulse Ox 99 08/01 2230 B/P 140/80 08/01 2230 B/P Mean 100 08/01 2230 O2 Delivery Room air 08/01 2230 Temp 36.8 08/01 2230 Pulse 81 08/01 2230 Resp 16 08/01 2230 Review of Vital Signs Reviewed Focused PE General/Const General/Const Awake, Alert, Well appearing Abdomen/GI Abdomen/GI Soft, Non-tender, No guarding, No rebound Skin Skin Color NL, No rash, Warm, Dry, Turgor NL Genitourinary General Exam deferred Interpretation Diagnostics Lab Results Interpretation Results Laboratory Tests 08/01/242308: [Embedded Image Not Available] Laboratory Tests: 08/01 Chemistry Sodium (136 - 145 mmol/L) 144 Potassium (3.4 - 5.0 mmol/L) 3.5 Chloride (98 - 107 mmol/L) 103 Carbon Dioxide (21 - 32 mmol/L) 32 Anion Gap (4 - 15 GAP calc) 9 BUN (7 - 18 MG/DL) 15 Creatinine (0.6 - 1.0 MG/DL) 1.0 Glomerular Filtr Rate (>60 estGFR) >=60 max estimate Glucose (70 - 110 MG/DL) 115 H Calcium (8.5 - 10.1 MG/DL) 8.7 Total Bilirubin (0.0 - 1.0 MG/DL) 0.2 AST (15 - 37 Unit/L) 25 ALT (30 - 65 Unit/L) 38 Total Alk Phosphatase (50 - 136 Unit/L) 97 Total Creatine Kinase (21 - 215 Unit/L) 238 H Total Protein (6.4 - 8.2 G/DL) 7.2 Albumin (3.4 - 5.0 G/DL) 3.6 Globulin (GM/dL) 3.6 Albumin/Globulin Ratio (1.2 - 2.2 RATIO) 1.0 L Hematology WBC (3.5 - 11.0 K/mm3) 7.1 RBC (4.70 - 6.10 M/mm3) 4.84 Hgb (12.3 - 15.9 G/DL) 13.9 Hct (35.8 - 46.7 %) 43.6 MCV (86.3 - 98.9 Fl) 90.1 MCH (28.9 - 34.4 pg) 28.7 L MCHC (32.1 - 34.5 G/DL) 31.9 L RDW (11.5 - 14.5 SD) 12.9 Plt Count (150 - 450 K/mm3) 300 MPV (7.0 - 9.6 fL) 10.20 H Neut % (Auto) (40 - 76 %) 30.5 L Lymph % (Auto) (20.5 - 51.1 %) 58.5 H Lewis % (Auto) (1.7 - 9.3 %) 6.8 Eos % (Auto) (0.0 - 6.0 %) 3.5 Baso % (Auto) (0.0 - 2.0 %) 0.6 Neut # (Auto) (1.8 - 7.6 K/mm3) 2.2 Lymph # (Auto) (0.6 - 3.0 K/mm3) 4.2 H Lewis # (Auto) (0.2 - 1.5 K/mm3) 0.5 Eos # (Auto) (0.0 - 0.4 K/mm3) 0.3 Baso # (Auto) (0.0 - 0.2 K/mm3) 0.0 Abs Immat Gran (auto) (0.00 - 0.03 x10 3/uL) 0.01 Immature Gran % (0.0 - 5.0 %) 0.1 Nucleated RBC % (0.0 - 1.0 /100WBC%) 0.0 Platelet Estimate (ADEQUATE THOUSAND) ADEQUATE Plt Morphology Comment NORMAL Polychromasia (NONE ON SCAN) TRACE Microcytosis (NONE ON SCAN) TRACE Macrocytosis (NONE ON SCAN) TRACE Spherocytes (NONE ON SCAN) TRACE Tear Drop Cells (NONE ON SCAN) TRACE Urines Urine Color (YELLOW) YELLOW Urine Appearance (CLEAR) CLEAR Urine pH (5.0 - 7.0) 6.0 Ur Specific [place] (1.005 - 1.015) >1.030 Urine Protein (NEGATIVE) 1+ Urine Glucose (UA) (NEGATIVE mg/dL) NEGATIVE Urine Ketones (NEGATIVE) 5 Urine Blood (NEGATIVE) NEGATIVE Urine Nitrite (NEGATIVE) NEGATIVE Urine Bilirubin (NEGATIVE) NEGATIVE Urine Urobilinogen (NORMAL) 4.0 Ur Leukocyte Esterase (NEGATIVE) 1+ H Urine RBC (0 - 3 #RBC/HPF) 1-3 Urine WBC (0 - 3 #WBC/HPF) 3-5 H Ur Squamous Epith Cells (NONE /HPF) TRACE Urine Bacteria (NONE - TRACE /HPF) TRACE Urine Mucus (NONE SEEN /LPF) 1+ Urine Culture Screen (Culture CHK Criteria) NO, WBC<10 Recent Impressions: CAT SCAN - CT ABD PELVIS W/CONT 08/01 2325 Report Impression - Status: SIGNED Entered: 08/02/2024 0032 IMPRESSION: Urinary bladder wall thickening, which may be due to underdistention or cystitis. Consider correlation with urinalysis. Impression By: [email or web address] Tanisha Quigley M.D. Re-Evaluation MDM Free Text MDM Notes Free Text MDM Notes Patient presenting with inguinal pain and hematuria, suspect renal stone disease , will obtain CBC, metabolic panel, CT abdomen pelvis with IV contrast, urinalysis, and continue to monitor. Additional Text Labs reviewed, urinalysis suspicious for UTI, and cystitis noted on CT scan. Will discharge home on antibiotics, and send off GC and chlamydia probe. ED Course Medication(s) Ordered Medication(s) Ordered: Diagnostic Agents Sig/Katy Start time Last Medication Dose Route Stop Time Status Admin Iopamidol 0 .STK-MED ONE 08/01 233 DC 08/01 IV 2310 Differential Diagnosis Differential Diagnosis Ureterolithiasis, Urinary tract infection, Urolithiasis, Vesicoureteral reflux Patient Discharge Departure Vital Signs/Condition Vital Signs First Documented: Result Date Time Pulse Ox 99 08/01 2230 B/P 140/80 08/01 2230 B/P Mean 100 08/01 2230 O2 Delivery Room air 08/01 2230 Temp 36.8 08/01 2230 Pulse 81 08/01 2230 Resp 16 08/01 2230 Last Documented: Result Date Time Pulse Ox 99 08/01 2230 B/P 140/80 08/01 2230 B/P Mean 100 08/01 2230 O2 Delivery Room air 08/01 2230 Temp 36.8 08/01 2230 Pulse 81 08/01 2230 Resp 16 08/01 2230 All vital signs available at the time of this entry have been reviewed. Clinical Impression Clinical Impression Primary Impression: Acute cystitis Disposition Decision Discharge )( Discharged to Home Yes )( Time 0114 )( Date 08/02/24 Discharge/Care Plan Counseled Regarding Diagnosis, Lab results, Imaging studies, Prescriptions, Need for follow-up, When to return to ED (Auto) Prescriptions Current Visit Scripts CEPHALEXIN (KEFLEX) 500 MG PO Q8H CEPHALEXIN (KEFLEX) 500 MG PO Q8H #21 CAPS Patient Instructions Urinary Tract Infections in Men Referrals Provider Referral: Jadiel Dai MD Follow-Up: Call for appointment Address: [id number] [place] [address] [address] [place] [address] Provider Referral: America Vang DO Follow-Up: Call for appointment Address: [id number] [place] [address] [address] [place] [address] Discharge Note I have spoken with the patient and/or caregivers. I have explained the patient's condition, diagnoses and treatment plan based on the information available to me at this time. I have answered the patient's and/or caregiver's questions and addressed any concerns. The patient and/or caregivers have as good an understanding of the patient's diagnosis, condition and treatment plan as can be expected at this point. The vital signs have been stable. The patient's condition is stable and appropriate for discharge from the emergency department. The patient will pursue further outpatient evaluation with the primary care physician or other designated or consulting physician as outlined in the discharge instructions. The patient and/or caregivers are agreeable to this plan of care and follow-up instructions have been explained in detail. The patient and/or caregivers have received these instructions in written format and have expressed an understanding of the discharge instructions. The patient and/or caregivers are aware that any significant change in condition or worsening of symptoms should prompt an immediate return to this or the closest emergency department or a call to 911. at 0043 RPT #: [id number] [facility]
[2025-02-20 01:02] LABS: Specific Gravity > 1.030 (1.005-1.030); Sqamous Epithelial <5 /HPF (None Seen); Urine Bacteria None Seen /HPF (<20); Urine Bilirubin NEGATIVE (Negative); Urine Blood Negative (Negative); Urine Clarity Clear (Clear); Urine Color Yellow (Yellow); Urine Culture Reflex Order NOT NEEDED; Urine Glucose NEGATIVE (Negative); Urine Ketones TRACE (Negative); Urine Microscopic Reflex YN ORDER UMIC; Urine Mucus 1+ /HPF (None Seen); Urine Nitrite NEGATIVE (Negative); Urine Protein 1+ (Negative); Urine RBC None Seen /HPF (None Seen); Urine Urobilinogen 2+ (Normal); Urine WBC <5 /HPF (<5); Urine pH 5.5 (5.0-7.0)
--- NOTE | 2025-02-20 02:22 | ER ---
Nurse's Notes [facility] Name: Nam Dinero Age: 39 yrs Sex: Male : 1985 Arrival Date: 02/19/2025 Time: 23:52 Bed IW10 Private MD: Diagnosis: Right Groin Pain Presentation: 02/20 00:05 Chief complaint: Patient states: had a hernia repair years ago , his right groin has iw been hurting for 2 months , feels like something popped. Coronavirus screen: At this time, the client does not indicate any symptoms associated with coronavirus-19. Ebola Screen: No symptoms or risks identified at this time. Initial Sepsis Screen: Does the patient meet any 2 criteria? No. Patient's initial sepsis screen is negative. Does the patient have a suspected source of infection? No. Patient's initial sepsis screen is negative. Risk Assessment: Do you want to hurt yourself or someone else? Patient reports no desire to harm self or others. Onset of symptoms was December 2024. 00:05 Method Of Arrival: Ambulatory iw 00:05 Acuity: JOCY 3 iw Historical: - Allergies: 00:07 No Known Allergies; iw - Home Meds: 00:07 None [Active]; iw - PMHx: 00:07 None; iw - PSHx: 00:07 hernia; iw - Immunization history:: Adult Immunizations not up to date. - Infectious Disease History:: Denies. - Social history:: Smoking status: Patient reports the use of cigarette tobacco products, smokes one-half pack cigarettes per day. Assessment: 02:34 Reassessment: PT NOT IN THE LOBBY. br2 Vital Signs: 00:05 BP 124 / 78; Pulse 89; Resp 16; Pulse Ox 99% on R/A; Weight 65.77 kg; Height 5 ft. 9 iw in. ; Pain 9/10; 00:05 Body Mass Index 21.41 (65.77 kg, 175.26 cm) iw 00:05 Pain Scale: Adult iw ED Course: 02/19 23:54 Patient arrived in ED. im 23:55 Rafael Hudson PA is PHCP. cp 23:55 Benjamín Taylor DO is Attending Physician. cp 02/20 00:07 Triage completed. iw 00:08 Arm band placed on. iw 00:22 UA Rfx Ramon Cult if indicated Sent. iw Administered Medications: No medications were administered Outcome: 01:07 Eloped from waiting room, after seeing physician br2 02:22 Discharge ordered by . leonela 02:36 Patient left the ED. br2 Signatures: Latanya Valenzuela, RN RN iw Rafael Hudson PA PA cp Mendoza, Itzel im Riddle, Belinda RN RN br2 Corrections: (The following items were deleted from the chart) 00:08 00:07 Allergies: Aspirin; iw iw
--- NOTE | 2025-02-20 02:22 | EDPHYS ---
Physician Documentation [facility] [place], [place] Name: Nam Dinero Age: 39 yrs Sex: Male : 1985 Arrival Date: 02/19/2025 Time: 23:52 Bed IW10 Private MD: ED Physician Benjamín Taylor HPI: 02/20 00:15 This 39 yrs old Black Male presents to ER via Ambulatory with complaints of Leg Pain - cp right, Groin Pain. 00:15 The patient presents with right groin pain. Onset: The symptoms/episode began/occurred cp 2 month(s) ago. Modifying factors: the symptoms are aggravated by walking, lifting. Associated signs and symptoms: Pertinent negatives: abdominal pain, dysuria, fever, hematuria, vomiting. Patient reports history of hernia repair. Historical: - Allergies: 00:07 No Known Allergies; iw - Home Meds: 00:07 None [Active]; iw - PMHx: 00:07 None; iw - PSHx: 00:07 hernia; iw - Immunization history:: Adult Immunizations not up to date. - Infectious Disease History:: Denies. - Social history:: Smoking status: Patient reports the use of cigarette tobacco products, smokes one-half pack cigarettes per day. ROS: 00:20 : Positive for right groin pain, Negative for urinary symptoms, hematuria, difficulty cp urinating, penile pain, testicular pain 00:20 Constitutional: Negative for body aches, chills, fever, poor PO intake, cp 00:20 Abdomen/GI: Negative for abdominal pain, nausea, vomiting, and diarrhea, 00:20 Back: Negative for pain at rest, pain with movement, radiated pain, 00:20 All other systems are negative, Exam: 00:25 Constitutional: The patient appears in no acute distress, alert, awake, non-toxic, well cp developed, well hydrated, well nourished, 00:25 Head/Face: Normocephalic, atraumatic. cp 00:25 Chest/axilla: Inspection: normal, 00:25 Cardiovascular: Rate: normal, 00:25 Respiratory: the patient does not display signs of respiratory distress, Respirations: normal, no use of accessory muscles, no retractions, labored breathing, is not present, Breath sounds: are clear throughout, no decreased breath sounds, 00:25 Abdomen/GI: Exam negative for discomfort, distension, guarding, Inspection: abdomen appears normal, Palpation: soft, in all quadrants, 00:25 Back: pain, is absent, ROM is normal, Vital Signs: 00:05 BP 124 / 78; Pulse 89; Resp 16; Pulse Ox 99% on R/A; Weight 65.77 kg; Height 5 ft. 9 iw in. ; Pain 9/10; 00:05 Body Mass Index 21.41 (65.77 kg, 175.26 cm) iw 00:05 Pain Scale: Adult iw MDM: 00:07 Medical Screening Exam initiated cp 02:21 Data reviewed: vital signs, nurses notes, lab test result(s), and as a result, I will cp discharge patient. 02:21 Differential diagnosis: UTI, urinary retention, prostatitis, urethritis, hip fracture, cp hernia. Counseling: I had a detailed discussion with the patient and/or guardian regarding the historical points, exam findings, and any diagnostic results supporting the discharge/admit diagnosis, lab results, the need for outpatient follow up, a family practitioner, to return to the emergency department if symptoms worsen or persist or if there are any questions or concerns that arise at home. 02/20 00:10 Order name: UA Rfx Ramon Cult if indicated; Complete Time: 01:04 cp 02/20 01:04 Interpretation: Reviewed. cp Administered Medications: No medications were administered Disposition: 21:18 Chart complete. cp Disposition Summary: 02/20/25 02:22 Discharge Ordered Notes: Location: Home cp Problem: new cp Symptoms: are unchanged cp Condition: Stable cp Diagnosis - Right Groin Pain cp Followup: cp - With: Private Physician - When: 2 - 3 days - Reason: Recheck today's complaints Discharge Instructions: - Discharge Summary Sheet cp - Muscle Strain cp - Muscle Pain, Adult cp Forms: - Medication Reconciliation Form cp - Antibiotic Education cp - Prescription Opioid Use cp - Patient Portal Instructions cp - Leadership Thank You Letter cp Prescriptions: - Ibuprofen 800 mg Oral Tablet - take 1 tablet ORAL route every 8 hours As needed take with food; 30 tablet; cp Refills: 0, Product Selection Permitted Addendum: 02/22/2025 17:42 I was immediately available on-site in the Emergency Department for consultation in the m s3 care of the patient. Signatures: Dispatcher [employer] Latanya Frey RN RN iw Rafael Hudson PA PA cp Sims, Marcus, DO DO ms3 Corrections: (The following items were deleted from the chart) 02/20 00:08 00:07 Allergies: Aspirin; tracie hodges
== END 2025-02-20 02:36 | disposition home or self-care (01) ==
LOC: ER 23:52
DX: R10.31 Right lower quadrant pain (principal)
CPT/HCPCS: 81001; 99282

== ENCOUNTER 2025-02-20 09:20 | Emergency (ER) | payer SELFPAY ==
--- OUTSIDE RECORDS SUMMARY | 2025-02-20 09:26 | XMS REPORT | Continuity of Care Document ---
Author Name Unknown Address [address] [facility] [address] [place] [address] Organization [facility] [place] Address [address] [facility] [address] [place] [address] Care Team Providers Care Biometrics Head Name Role Phone NO PHYSICIAN, . Primary [...] Treating Clinician Comments Source Schizophre court Complaint 913 12:00: 00 [facility] Hypertensi ve disorder Complaint [facility] Hyperchole sterolemia Complaint [facility] Long-term current use of drug therapy Complaint [facility] Psychogeni c formicatio n Problem [place] [...] Known Allergie s DA Active U 2023-10 00:00: 00 [facility] No known drug allergy Miscella neous allergy Active 10-09 00:00: 00 [facility] No known drug allergy Miscella neous allergy Active 10-09 00:00: 00 [facility] Social History Social Habit Start Date Stop Date Quantity Comments Source History of tobacco use [facility] Smoking Status Start Date Stop Date Source Smokes tobacco daily (finding) 2020-11-17 09:54:00 [facility] Medications Ordered Medication Name Filled Medication Name Start Date Stop Date Current Medication? Ordering Clinician Indication Dosage Frequency Signature (SIG) Comments Components Source [facility] 2023-10 04:00: 00 12-02 05:00 :00 No 1U [facility] hydrOXYzine HCl hydrOXYzine HCl 2023-10 04:00: 00 11-02 05:00 :00 No 1{tbl} [facility] Depakote ER Depakote ER 2023-10 04:00: 00 11-02 05:00 :00 No 1{tbl} [facility] traZODone hydrochlori de traZODone hydrochlori de 2023-10 04:00: 00 11-02 05:00 :00 No 1{tbl} [facility] 11-27 05:00: 00 11-27 05:00 :00 No 1U [facility] Doxycycline (Monohydrat e) (Doxycyclin e) 100 Mg CAP Doxycycline (Monohydrat e) (Doxycyclin e) 100 Mg CAP 11-19 03:02: 00 Yes 1 [facility] Polyethylen e Glycol 3350 (Miralax) 17 Gm Packet Polyethylen e Glycol 3350 (Miralax) 17 Gm Packet 11-19 03:02: 00 Yes 1 [facility] Docusate Sodium (Colace *) 100 Mg CAP Docusate Sodium (Colace *) 100 Mg CAP 11-02 20:04: 00 Yes 1 [facility] Vital Signs Vital Name Observation Time Observation Value Comments S ource Height 2024-12-25 08:19:00 175.230540 cm [facility] Weight 2024-12-25 08:19:[address] [facility] BMI (Body Mass Index) 2024-12-25 08:19:00 20.7 kg/m2 [facility] Height 2024-12-23 03:31:00 175.809986 cm [facility] Weight 2024-12-23 03:31:[address] [facility] BMI (Body Mass Index) 2024-12-23 03:31:00 21.4 kg/m2 [facility] Height 2024-08-05 09:36:00 175.972333 cm [facility] Weight 2024-08-05 09:36:00 81.928877 kg [facility] BMI (Body Mass Index) 2024-08-05 09:36:00 26.6 kg/m2 [facility] Height 2024-08-05 01:03:00 175.026507 cm [facility] Weight 2024-08-05 01:03:00 68.804787 kg [facility] BMI (Body Mass Index) 2024-08-05 01:03:00 22.2 kg/m2 [facility] Heart Rate 2024-08-07 18:13:04 93.0 /min [...] 2022-11-13 15:41:02 176.5 cm [facility] Heart Rate 2022-11-05 15:59:38 93.0 /min [facility] Systolic 2022-11-05 15:59:38 121.0 mm[Hg] [facility] Diastolic 2022-11-05 15:59:38 85.0 mm[Hg] [facility] Height 2022-11-05 15:59:38 176.5 cm [facility] Weight Kgs 2022-11-05 15:59:38 85.7 KG [facility] BMI 2022-11-05 15:59:38 27.5 kg/m2 [facility] Diastolic 2022-08-06 16:21:20 81.0 mm[Hg] [facility] Height 2022-08-06 16:21:20 176.5 cm [facility] Weight Kgs 2022-08-06 16:21:20 94.3 KG [facility] BMI 2022-08-06 16:21:20 30.3 kg/m2 [facility] Heart Rate 2022-08-06 16:21:20 71.0 /min [facility] Systolic 2022-08-06 16:21:20 128.0 mm[Hg] [facility] Encounters Start Date/Time End Date/Time Encounter Type Admission Type Attending [facility] Care Department Encounter ID Source 2023-05-24 15:21:08 Inpatient TEXANA TEXANA [id number] [facility] 2023-01-16 11:30:14 Inpatient TEXANA TEX[facility] [id number] [facility] 2022-11-12 11:17:16 Inpatient TEXANA TEXANA [id number] [facility] 2022-11-10 23:08:24 Inpatient TEXANA TEX[facility] [id number] [facility] 2022-11-05 09:50:54 Inpatient TEXANA TEXANA [id number] [facility] 2022-08-06 11:55:36 Inpatient TEXANA TEXANA [id number] [facility] 2022-07-03 14:40:59 Inpatient TEXANA TEXANA [id number] [facility] 2022-04-26 10:51:45 [facility] [id number] [facility] 2022-04-11 16:28:03 [id number] [facility] 2024-12-25 08:11:00 2024-12-25 08:27:00 Emergency ER MARTINE GIBSON [facility] [id number] [facility] 2024-12-25 08:11:00 2024-12-25 08:27:[address] [facility] [id number] [facility] 2024-12-23 03:27:00 2024-12-23 03:41:00 Emergency ER RUSLANERROL HAMZAH [facility] [id number] [facility] 2024-12-23 03:27:00 2024-12-23 03:41:00 Departed Emergency Room [facility] [id number] [facility] 2024-08-05 09:25:00 2024-08-05 10:47:00 Emergency ER FANNY BINGHAM [facility] [id number] [facility] 2024-08-05 09:25:00 2024-08-05 10:47:[address] [facility] [id number] [facility] 2024-08-05 00:51:00 2024-08-05 03:56:00 Departed Emergency Room [facility] [id number] [facility] 2024-08-01 22:22:00 2024-08-02 01:20:00 Emergency EM Teodoro Phillips HCAPM CIARA [id number] [facility] 2023-12-31 08:30:00 2023-12-31 08:30:00 Outpatient UNKNOWN ARVIN ESPINAL TEX[facility] [id number] 2023-11-19 01:01:00 2023-11-19 03:26:00 Emergency ER ANGELES BERG [facility] [id number] [facility] 2023-11-02 17:53:00 2023-11-02 20:46:00 Emergency ER FANNY BINGHAM [facility] [id number] [facility] 2023-11-02 17:53:00 2023-11-02 17:53:[address] [facility] [id number] 2023-11-01 11:32:00 2023-11-01 14:07:[address] [facility] [id number] [id number] 2023-11-01 11:32:00 2023-11-01 14:07:00 Emergency ER MARILU FERRER [facility] [id number] [facility] 2022-07-17 10:54:00 2022-07-17 12:36:00 emergency [id number] 2022-07-17 10:54:00 2022-07-17 12:36:00 Emergency ER FANNY BINGHAM [facility] [id number] [facility] 2022-04-11 17:27:00 2022-04-11 17:27:00 Outpatient INTERNAL TEX[facility] REFERRAL^^ 4^INTERNAL TEXANA REFERRAL^^ 4^INTERNAL TEXANA REFERRAL^^ 4 TEXANA TEXANA [id number] [facility] 2022-04-11 16:27:00 2022-04-11 16:27:00 Outpatient INTERNAL [facility] REFERRAL VERO PHAM [id number] [facility] 2021-08-09 13:10:00 2021-08-09 13:10:00 Outpatient OTHER LOCAL AUTHORITY BROOKS LARA [id number] [facility] 2021-08-09 13:10:00 2021-08-09 13:10:00 Outpatient OTHER LOCAL AUTHORITY BROOKS LARA [id number] [facility] 2020-11-17 09:32:00 2020-11-17 10:15:00 Emergency ER TABITHA MENDEZORY [facility] [id number] [facility] 2020-05-04 11:40:00 2020-05-05 00:03:00 Emergency E CHINTAN FREED [facility] [id number] [facility] 2003-03-05 12:56:00 2003-03-05 14:35:00 Emergency ER MARQUIS BORDEN [facility] [id number] [facility] Results Test Description Test Time Test Comments Results Result Co mments Source [facility] CtrLactic [id number] 02:55:00* Test Item Value Reference Range Interpretation Comme nts Lactic Acid Level (test code = GQJ9302) 0.94 [facility] CtrBilirubin icalz7970-05-57 02:54:00* Test Item Value Reference Range Interpretation Comme nts Total Bilirubin (test code = WRF7742) 0.4 [facility] CtrSerum or plasma urea nitrogen measurement (mass/volume)2024-08-05 02:54:00* Test Item Value Reference Range Interpretation Comme nts Blood Urea Nitrogen (test co de = 3094-0) 12 [facility] XnzSFD9795-40-54 02:54:00* Test Item Value Reference Range Interpretation Comme nts Aspartate Amino Transf (AST/ SGOT) (test code = FJR4820) 29 [facility] CtrCreatinine fzebd9720-29-05 02:54:00* Test Item Value Reference Range Interpretation Comme nts Creatinine (test code = 997437156) 0.88 [facility] CtrEstimated glomerular filtration rate (GFR) lelbshtuiuzsn5882-74-96 02:54:00* Test Item Value Reference Range Interpretation Comme nts Glomerular Filtration Rate C alc (test code = 032533709) > 60.00 [facility] CtrBUN/creatinine vnfki4692-71-35 02:54:00* Test Item Value Reference Range Interpretation Comme nts BUN/Creatinine Ratio (test c ode = 19775811) 13.6 [facility] CtrBody fluid potassium rwnfteabvlp5743-18-35 02:54:00* Test Item Value Reference Range Interpretation Comme nts Potassium Level (test code = 2821-7) 3.6 [facility] NzpCI19419-18-27 02:54:00* Test Item Value Reference Range Interpretation Comme nts Carbon Dioxide Level (test c ode = 67222782) 22 [facility] CtrAnion gap tzdujgoxayf2123-80-56 02:54:00* Test Item Value Reference Range Interpretation Comme nts Anion Gap (test code = 05696955) 17.6 [facility] CtrCalcium iuffn2446-53-73 02:54:00* Test Item Value Reference Range Interpretation Comme nts Calcium Level (test code = 38495042) 9.4 [facility] CtrGlobulin aic4877-93-19 02:54:00* Test Item Value Reference Range Interpretation Comme nts Globulin (test code = 369653541) 2.8 [facility] CtrALT (SGPT) ser/vhzv3065-32-28 02:54:00* Test Item Value Reference Range Interpretation Comme nts Alanine Aminotransferase (AL T/SGPT) (test code = 1742-6) 24 [facility] CtrALP ser/srgo6998-55-46 02:54:00* Test Item Value Reference Range Interpretation Comme nts Total Alkaline Phosphatase ( test code = 6768-6) 77 [facility] CtrBilirubin cvixx3905-95-95 02:54:00* Test Item Value Reference Range Interpretation Comme nts Total Bilirubin (test code = OSV5028) 0.4 [facility] CtrSerum or plasma urea nitrogen measurement (mass/volume)2024-08-05 02:54:00* Test Item Value Reference Range Interpretation Comme nts Blood Urea Nitrogen (test co de = 3094-0) 12 [facility] CukHPP7352-30-83 02:54:00* Test Item Value Reference Range Interpretation Comme nts Aspartate Amino Transf (AST/ SGOT) (test code = RNF0422) 29 [facility] CtrCreatinine ooxdn6753-20-38 02:54:00* Test Item Value Reference Range Interpretation Comme nts Creatinine (test code = 988607918) 0.88 [facility] CtrEstimated glomerular filtration rate (GFR) ztzjpmtlyjuwk8792-11-05 02:54:00* Test Item Value Reference Range Interpretation Comme [facility] Glomerular Filtration Rate C alc (test code = 805723065) > 60.00 [facility] CtrBUN/creatinine uhyes7571-24-16 02:54:00* Test Item Value Reference Range Interpretation Comme [facility] BUN/Creatinine Ratio (test c ode = 29787219) 13.6 [facility] CtrBody fluid potassium kkanerbcfqv8298-44-54 02:54:00* Test Item Value Reference Range Interpretation Comme nts Potassium Level (test code = 2821-7) 3.6 [facility] KivJJ06213-74-51 02:54:00* Test Item Value Reference Range Interpretation Comme nts Carbon Dioxide Level (test c ode = 93672386) 22 [facility] CtrAnion gap ontobqxhjrj5376-88-79 02:54:00* Test Item Value Reference Range Interpretation Comme nts Anion Gap (test code = 57105155) 17.6 [facility] CtrCalcium dqsja8880-23-19 02:54:00* Test Item Value Reference Range Interpretation Comme nts Calcium Level (test code = 95354826) 9.4 [facility] CtrGlobulin uee5785-94-56 02:54:00* Test Item Value Reference Range Interpretation Comme nts Globulin (test code = 788423053) 2.8 [facility] CtrALT (SGPT) ser/cbom9018-18-81 02:54:00* Test Item Value Reference Range Interpretation Comme nts Alanine Aminotransferase (AL T/SGPT) (test code = 1742-6) 24 [facility] CtrALP ser/xyoj0819-64-56 02:54:00* Test Item Value Reference Range Interpretation Comme nts Total Alkaline Phosphatase ( test code = 6768-6) 77 [facility] CtrAbsolute eosinophil rzrjo8441-54-73 02:25:00* Test Item Value Reference Range Interpretation Comme nts Eosinophils # (Auto) (test c ode = DKE1281) 0.07 [facility] CtrRBC mrrdc3648-63-90 02:25:00* Test Item Value Reference Range Interpretation Comme [facility] Red Blood Count (test code = 23483379) 4.54 [facility] LrcYeuwsreztb8494-96-04 02:25:00* Test Item Value Reference Range Interpretation Comme [facility] Hematocrit (test code = 10498664) 39.9 [facility] CtrMCV (mean corpuscular volume) determination 2024-08-05 02:25:00* Test Item Value Reference Range Interpretation Comme [facility] Mean Corpuscular Volume (lori t code = 02552-2) 87.9 [facility] CtrMean corpuscular hemoglobin (MCH) determination 2024-08-05 02:25:00* Test Item Value Reference Range Interpretation Comme [facility] Mean Corpuscular Hemoglobin (test code = 98949643) 28.9 [facility] concentration (MCHC) vrpneqebvxnlm3276-95-21 02:25:00* Test Item Value Reference Range Interpretation Comme [facility] Mean Corpuscular Hemoglobin Concent (test code = 57644310) 32.8 [facility] CtrRBC distribution width coefficient of variation 2024-08-05 02:25:00* Test Item Value Reference Range Interpretation Comme [facility] Red Cell Distribution Width (test code = 36170488) 12.7 [facility] CtrPlatelet lipek8764-51-46 02:25:00* Test Item Value Reference Range Interpretation Comme [facility] Platelet Count (test code = 89664345) 307 [facility] CtrMean platelet vtxfmt3036-79-18 02:25:00* Test Item Value Reference Range Interpretation Comme nts Mean Platelet Volume (test c ode = 30519391) 10.4 [facility] CtrNeutrophils seg % irg4515-33-07 02:25:00* Test Item Value Reference Range Interpretation Comme nts Neutrophils (%) (Auto) (test code = 92411-2) 58.2 [facility] CtrAbsolute immature granulocyte islxi8963-40-11 02:25:00* Test Item Value Reference Range Interpretation Comme nts Absolute Immature Granulocyt e (auto (test code = 22719-8) 0.02 [facility] CtrBlood band neutrophils count (number/volume) 2024-08-05 02:25:00* Test Item Value Reference Range Interpretation Comme nts Neutrophils # (Auto) (test c ode = 53219-1) 5.85 [facility] CtrAbsolute lymphocyte ptbwu5141-45-73 02:25:00* Test Item Value Reference Range Interpretation Comme nts Lymphocytes # (Auto) (test c ode = 41677-9) 3.21 [facility] CtrAbsolute basophil dafui9366-47-38 02:25:00* Test Item Value Reference Range Interpretation Comme nts Basophils # (Auto) (test cod e = 28520397) 0.05 [facility] CtrAbsolute NRBC fmkfw9163-02-90 02:25:00* Test Item Value Reference Range Interpretation Comme nts Nucleated Red Blood Cells # (test code = 797169834) 0 [facility] CtrAbsolute eosinophil trtze6569-55-12 02:25:00* Test Item Value Reference Range Interpretation Comme [facility] Eosinophils # (Auto) (test c ode = IFS4798) 0.07 [facility] CtrRBC vkmto7983-10-63 02:25:00* Test Item Value Reference Range Interpretation Comme [facility] Red Blood Count (test code = 51978716) 4.54 [facility] YxkNgteepsuwx9618-38-59 02:25:00* Test Item Value Reference Range Interpretation Comme nts Hematocrit (test code = 72714489) 39.9 [facility] CtrMCV (mean corpuscular volume) determination 2024-08-05 02:25:00* Test Item Value Reference Range Interpretation Comme [facility] Mean Corpuscular Volume (lori t code = 12777-7) 87.9 [facility] CtrMean corpuscular hemoglobin (MCH) determination 2024-08-05 02:25:00* Test Item Value Reference Range Interpretation Comme [facility] Mean Corpuscular Hemoglobin (test code = 10777191) 28.9 [facility] CtrMean corpuscular hemoglobin concentration (MCHC) cukevfudbvzpk6878-71-07 02:25:00* Test Item Value Reference Range Interpretation Comme [facility] Mean Corpuscular Hemoglobin Concent (test code = 84121362) 32.8 [facility] CtrRBC distribution width coefficient of variation 2024-08-05 02:25:00* Test Item Value Reference Range Interpretation Comme [facility] Red Cell Distribution Width (test code = 32904886) 12.7 [facility] CtrPlatelet jwwpz8560-93-53 02:25:00* Test Item Value Reference Range Interpretation Comme [facility] Platelet Count (test code = 91658396) 307 [facility] CtrMean platelet glvbvy3696-63-79 02:25:00* Test Item Value Reference Range Interpretation Comme [facility] Mean Platelet Volume (test c ode = 13743199) 10.4 [facility] CtrNeutrophils seg % kmx2659-70-39 02:25:00* Test Item Value Reference Range Interpretation Comme [facility] Neutrophils (%) (Auto) (test code = 79117-0) 58.2 [facility] CtrAbsolute immature granulocyte zzkvc6561-87-99 02:25:00* Test Item Value Reference Range Interpretation Comme [facility] Absolute Immature Granulocyt e (auto (test code = 81365-1) 0.02 [facility] CtrBlood band neutrophils count (number/volume) 2024-08-05 02:25:00* Test Item Value Reference Range Interpretation Comme [facility] Neutrophils # (Auto) (test c ode = 91019-9) 5.85 [facility] CtrAbsolute lymphocyte uqvnn7541-63-79 02:25:00* Test Item Value Reference Range Interpretation Comme nts Lymphocytes # (Auto) (test c ode = 19338-5) 3.21 [facility] CtrAbsolute basophil frcix9539-08-47 02:25:00* Test Item Value Reference Range Interpretation Comme nts Basophils # (Auto) (test cod e = 50547493) 0.05 [facility] CtrAbsolute NRBC aynuu4538-25-45 02:25:00* Test Item Value Reference Range Interpretation Comme nts Nucleated Red Blood Cells # (test code = 471209708) 0 [facility] CtrUrine fqmioxd0451-03-42 01:50:00* Test Item Value Reference Range Interpretation Comme nts Urine Culture (test code = 630-4) SPECIMEN HAS BEEN RECEIVED IN LAB AND IS IN PROGRESS. [facility] adbvnjz9365-40-18 01:50:00* Test Item Value Reference Range Interpretation Comme nts Urine Culture (test code = 630-4) SPECIMEN HAS BEEN RECEIVED IN LAB AND IS IN PROGRESS. [facility] examination for white blood cells (WBC) 2024-08-05 01:48:00* Test Item Value Reference Range Interpretation Comme nts Urine WBC (test code = 897086480) 03-16 [facility] for white blood cells (WBC) 2024-08-05 01:48:00* Test Item Value Reference Range Interpretation Comme nts Urine WBC (test code = 634825142) 03-16 [facility] CtrRBC count ur mqwf2950-50-34 01:42:00* Test Item Value Reference Range Interpretation Comme nts Urine RBC (test code = 798-9) >100 [facility] CtrAutomated epithelial cells count in urine sediment (number/area)2024-08-05 01:42:00* Test Item Value Reference Range Interpretation Comme nts Urine Epithelial Cells (test code = 74714-5) 0-2 [facility] CtrBacteria detection in urine sediment by light cojkyplqre2809-30-41 01:42:00* Test Item Value Reference Range Interpretation Comme nts Urine Bacteria (test code = 21948-6) None Seen [facility] detection by automated method 2024-08-05 01:42:00* Test Item Value Reference Range Interpretation Comme nts Urine Casts (test code = 10997-0) 3-5 [facility] CtrRBC count ur bxcz4504-19-90 01:42:00* Test Item Value Reference Range Interpretation Comme nts Urine RBC (test code = 798-9) >100 [facility] CtrAutomated epithelial cells count in urine sediment (number/area)2024-08-05 01:42:00* Test Item Value Reference Range Interpretation Comme nts Urine Epithelial Cells (test code = 68182-0) 0-2 [facility] CtrBacteria detection in urine sediment by light mpahdtyyxe6395-25-63 01:42:00* Test Item Value Reference Range Interpretation Comme nts Urine Bacteria (test code = 75769-6) None Se[address] [facility] CtrUrine casts detection by automated method 2024-08-05 01:42:00* Test Item Value Reference Range Interpretation Comme nts Urine Casts (test code = 84126-8) 3-5 [facility] CtrUrine glucose mzmechdii6360-58-66 01:37:00* Test Item Value Reference Range Interpretation Comme nts Urine Glucose (UA) (test cod e = 2349-9) Negative [facility] CtrBilirubin jx5924-22-76 01:37:00* Test Item Value Reference Range Interpretation Comme nts Urine Bilirubin (test code = 239214956) Negative [facility] CtrKetones af2085-19-68 01:37:00* Test Item Value Reference Range Interpretation Comme nts Urine Ketones (test code = 48314749) Trace [facility] CtrSpecific gravity of Urine by Automated test strip 2024-08-05 01:37:00* Test Item Value Reference Range Interpretation Comme nts Urine Specific [place] (test code = 32240-3) 1.012 [facility] blood yudvkkkvc9593-60-17 01:37:00* Test Item Value Reference Range Interpretation Comme nts Urine Blood (test code = 09282-1) 3+ (LARGE) [facility] CtrpH qx5815-28-89 01:37:00* Test Item Value Reference Range Interpretation Comme nts Urine pH (test code = 2756-5) 5.500 [facility] CtrProtein zw9572-94-63 01:37:00* Test Item Value Reference Range Interpretation Comme nts Urine Protein (test code = 50390299) 2+ [facility] CtrUrobilinogen, urine, rx0028-63-52 01:37:00* Test Item Value Reference Range Interpretation Comme nts Urine Urobilinogen (test cod e = 780183014) 1.0 [facility] CtrU[facility] nitrate [id number] 01:37:00* Test Item Value Reference Range Interpretation Comme nts Urine Nitrate (test code = 13398-9) Negative [facility] anaxhgluw2081-93-64 01:37:00* Test Item Value Reference Range Interpretation Comme [facility] Urine Leukocyte Esterase (te st code = 813972672) Trace [facility] CtrColor of Urine by Mkqr6955-59-25 01:37:00* Test Item Value Reference Range Interpretation Comme [facility] Urine Color (test code = 36106-2) [place] [facility] CtrAppearance of [id number] 01:37:00* Test Item Value Reference Range Interpretation Comme nts Urine Appearance (test code = 5767-9) Cloudy [facility] glucose lozhohejv7583-60-98 01:37:00* Test Item Value Reference Range Interpretation Comme [facility] Urine Glucose (UA) (test cod e = 2349-9) Negative [facility] CtrBilirubin [id number] 01:37:00* Test Item Value Reference Range Interpretation Comme nts Urine Bilirubin (test code = 248210479) Negative [facility] CtrKetones tb5315-04-47 01:37:00* Test Item Value Reference Range Interpretation Comme nts Urine Ketones (test code = 14652415) Trace [facility] CtrSpecific gravity of Urine by Automated test strip 2024-08-05 01:37:00* Test Item Value Reference Range Interpretation Comme nts Urine Specific Burley (test code = 23130-7) 1.012 [facility] blood tzutrywfn4405-48-31 01:37:00* Test Item Value Reference Range Interpretation Comme [facility] Urine Blood (test code = 73816-1) 3+ (LARGE) [facility] CtrpH [id number] 01:37:00* Test Item Value Reference Range Interpretation Comme [facility] Urine pH (test code = 2756-5) 5.500 [facility] CtrProtein ax6431-21-01 01:37:00* Test Item Value Reference Range Interpretation Comme [facility] Urine Protein (test code = 69105474) 2+ [facility] CtrUrobilinogen, urine, [id number] 01:37:00* Test Item Value Reference Range Interpretation Comme [facility] Urine Urobilinogen (test cod e = 817631443) 1.0 [facility] CtrUrine nitrate [id number] 01:37:00* Test Item Value Reference Range Interpretation Comme [facility] Urine Nitrate (test code = 55164-1) Negative [facility] esterase omgptwfnf2268-98-06 01:37:00* Test Item Value Reference Range Interpretation Comme [facility] Urine Leukocyte Esterase (te st code = 269639512) Trace [facility] CtrColor of Urine by Sibh0427-58-01 01:37:00* Test Item Value Reference Range Interpretation Comme [facility] Urine Color (test code = 58916-0) [place] [facility] CtrAppearance of Bxdrl5692-87-00 01:37:00* Test Item Value Reference Range Interpretation Comme [facility] Urine Appearance (test code = 5767-9) Cloudy [facility] CtrUA RFLX MICR CULT IF [id number] 00:01:00 * Test Item Value Reference Range [...] Gross HematuriaSOURCE OF URINE: CLEAN CATCHCBC W/AUTO [id number] 23:56:00* Test Item Value Reference Range Interpretation [...] = NRBC#) 0.0 K/mm3 0.00-0.01 N RBC [id number] 23:56:00* Test Item Value Reference Range Interpretation [...] NORMAL Notes <thead> Date/Time Note Provider Source [facility] Ivi5568-07-39 08:30:38 Future Tests Future scheduled test information [...] Constipation, Adult, Easy-to -Read Erectile Dysfunction Prostatitis, Ybts-oz-Fjlb [facility]2025-03-19 03:42:24 Patient Care Team <thead> Team Status: Active Member Role Status Dates . NO PHYSICIAN primary care physician Active RADHA MCKEON Next of Kin Active RADHA MCKEON Emergency Contact Active RAND MIKE Guarantor Active [facility]2025-03-19 03:42:24 Future Tests Future scheduled test information [...] Constipation, Adult, Easy-to -Read Erectile Dysfunction Prostatitis, Prrk-wc-Vurr [facility]2024-11-02 02:23:45No ResultsGIDEON Gomezroxi Gzcaad6205-44-54 02:23:45No ResultsLACLARICE GomezhumphreyHarbor Oaks HospitalOkltjm0731-71-36 02:23:45 SatAug 05 08:00:00 EDT 2023: "I love nature. I love to fish. I'm intelligent." SatNov 05 07:00:00 EST 2022: "I love nature. I love to fish. I'm intelligent." SatMar 17 08:00:00 EDT 2023: "I love nature. I love to fish. I'm intelligent." SatNov 18 07:00:00 EST 2023: "I love nature. I love to fish. I'm intelligent." GIDEON Granados Brltei7319-17-50 02:23:45 Goals Improve mood- During the nex t 90 days, Rand will take his medications as prescribed and not miss more than one medication dosage. He will report any side effects to either the nurse and/or prescriber. During the next 90 days, Rand will continue to identify 3 ways he is coping with any psychosis and report them to his respiratory care technician. Interventions Med training and supports Psychosocial Rehab [...] With TSH SatFebruary 04 08:00: 00 EDT 2024 [id number] Drug-Scr SatNov 05 07:00:00 EST 2022 CBC With Differential/Platelet SatOct 09 0 07:00:00 EST 2022 Comp. Metabolic Panel (14) SatNov 05 07 :00:00 EST 2022 Glucose SatNov 05 07:00:00 EST 2022 Lipid Panel SatNov 05 07:00:00 EST 2022 Thyroid Panel With TSH SatNov 05 07:00: 00 EST 2022 Date and Time Service Provider SatAug 07 09:30:00 EDT 2023 med injection AMB ER SHAMSIDDEEN GIDEON Darwin Oggylp3946-10-15 06:03:13[facility] 2024-08-06 06:03:13[facility]24[facility] 06:03:13Wed Aug 05 08:00:00 EDT 2023: "I love nature. I love to fish. I'm intelligent." SatNov 05 07:00:00 EST 2022: "I love nature. I love to fish. I'm intelligent." SatMar 17 08:00:00 EDT 2023: "I love nature. I love to fish. I'm intelligent." SatNov 18 07:00:00 EST 2023: "I love nature. I love to fish. I'm intelligent." Brooks SalomonHuron [facility] HospitalIswobq8629-68-25 06:03:13 Goals Improve mood- During the nex t 90 days, Rand will take his medications as prescribed and not miss more than one medication dosage. He will report any side effects to either the nurse and/or prescriber. During the next 90 days, Rand will continue to identify 3 ways he is coping with any psychosis and report them to his respiratory care technician. Interventions Med training and supports Psychosocial Rehab [...] TSH SatFebruary 04 08:00: 00 EDT 2023 [id number] Drug-Scr SatNov 05 07:00:00 EST 2022 CBC With Differential/Platelet Sat 3 0 07:00:00 EST 2022 Comp. Metabolic Panel (14) SatNov 05 07 :00:00 EST 2022 Glucose SatNov 05 07:00:00 EST 2022 Lipid Panel SatNov 05 07:00:00 EST 2022 Thyroid Panel With TSH SatNov 05 07:00: 00 EST 2022 Brooks Monterroso [id number] 11:14:06 Patient Care Team <thead> Team Status: Active Member Role Status Dates . NO PHYSICIAN primary care physician Active HAMZAH MILLER DO Emergency Provider Active RADHA MCKEON Next of Kin Active RADHA MCKEON Emergency Contact Active RAND MCKEON Guarantor Active [facility] [id number] 11:14:06 Future Tests Future scheduled test information [...] Constipation, Adult, Easy-to -Read Erectile Dysfunction Prostatitis, Mqer-vs-Luhg [facility] Orh9864-62-28 03:57:31 Patient Care Team <thead> Team Status: Active Member Role Status Dates . NO PHYSICIAN primary care physician Active HAMZAH MILLER DO Emergency Provider Active RADHA MCKEON Next of Kin Active RADHA MIKE Emergency Contact Active RAND MCKEON Guarantor Active [facility] Kko4309-74-22 03:57:31 Future Tests Future scheduled test information [...] Constipation, Adult, Easy-to -Read Erectile Dysfunction Prostatitis, Esqr-cm-Eiwp [facility] Jst0848-69-33 23:04:00 [facility] ([facility]) EMERGENCY PROVIDER REPORT REPORT#:[id number] REPORT STATUS: Signed DATE:08/01/24 TIME:2303 PATIENT: RAND MCKEON UNIT #: [id number] ROOM/BED: : 83 AGE: 38 SEX: M [...] (Auto) (20.5 - 51.1 %) 58.5 H Anderson % (Auto) (1.7 - 9.3 %) 6.8 Eos % (Auto) (0.0 - 6.0 %) 3.5 Baso % (Auto) (0.0 - 2.0 %) 0.6 Neut # (Auto) (1.8 - 7.6 K/mm3) 2.2 Lymph # (Auto) (0.6 - 3.0 K/mm3) 4.2 H Anderson # (Auto) (0.2 - 1.5 K/mm3) 0.5 [...] pH (5.0 - 7.0) 6.0 Ur Specific Burley (1.005 - 1.015) >1.030 Urine Protein (NEGATIVE) [...] Dai MD Follow-Up: Call for appointment Address: [address] [place] [address] Provider Referral: America Vang DO Follow-Up: Call for appointment Address: [address] [place] [address] [address] [place] [address] Discharge Note I have spoken with the [...] call to 911. at [phone] RPT #: [id number] [facility]KA[facility]
--- NOTE | 2025-02-20 09:49 | ER ---
Nurse's Notes [facility] Name: Nam Dinero Age: 39 yrs Sex: Male : 1985 Arrival Date: 02/20/2025 Time: 09:20 Bed IW3 Private MD: Diagnosis: Erectile dysfunction Presentation: 02/20 09:40 Chief complaint: Patient states: Wants a medication to help him get an erection. ll1 Coronavirus screen: Client denies travel out of the [place] in the last 14 days. At this time, the client does not indicate any symptoms associated with coronavirus-19. Ebola Screen: Patient denies travel to an Ebola-affected area in the 21 days before illness onset. Initial Sepsis Screen: Does the patient meet any 2 criteria? No. Patient's initial sepsis screen is negative. Does the patient have a suspected source of infection? No. Patient's initial sepsis screen is negative. Risk Assessment: Do you want to hurt yourself or someone else? Patient reports no desire to harm self or others. Onset of symptoms was October 07, 2022. 09:40 Method Of Arrival: Ambulatory ll1 09:40 Acuity: JOCY 5 ll1 Triage Assessment: 09:40 General: Appears in no apparent distress. Behavior is calm, cooperative, appropriate ll1 for age. Pain: Denies pain. Neuro: No deficits noted. : Reports unable to get an erection when wanted for 3 years. Historical: - PSHx: 09:40 hernia; ll1 - Immunization history:: Adult Immunizations up to date. - Infectious Disease History:: Denies. - Social history:: Smoking status: Patient reports the use of cigarette tobacco products, denies chronic smoking, but will smoke occasionally. - Family history:: not pertinent. - Hospitalizations: : No recent hospitalization is reported. Screenin:53 [facility] ED Fall Risk Assessment (Adult) History of falling in the last 3 months, ll1 including since admission No falls in past 3 months (0 pts) Confusion or Disorientation No (0 pts) Intoxicated or Sedated No (0 pts) Impaired Gait No (0 pts) Mobility Assist Device Used No (0 pt) Altered Elimination No (0 pt) Score/Fall Risk Level 0 - 2 = Low Risk Maintained a safe environment, Hourly rounding (assess needs \T\ fall precautionary measures) done. Abuse screen: Denies threats or abuse. Nutritional screening: No deficits noted. Tuberculosis screening: No symptoms or risk factors identified. Assessment: 09:53 Reassessment: No changes from previously documented assessment. Patient and/or family ll1 updated on plan of care and expected duration. Pain level reassessed. Patient is alert, oriented x 3, equal unlabored respirations, skin warm/dry/pink. Vital Signs: 09:40 BP 138 / 97; Pulse 86; Resp 18; Temp 97.3; Pulse Ox 100% ; Weight 70.31 kg; Height 5 ll1 ft. 9 in. ; Pain 0/10; 09:40 Body Mass Index 22.89 (70.31 kg, 175.26 cm) ll1 09:40 Pain Scale: Adult ll1 ED Course: 09:24 Patient arrived in ED. sj2 09:26 Esequiel Tatum MD is Attending Physician. rn 09:41 Triage completed. ll1 09:41 Arm band placed on. ll1 09:43 Patient has correct armband on for positive identification. Provided Education on: ER ll1 procedures and process. 09:53 No provider procedures requiring assistance completed. Patient did not have IV access ll1 during this emergency room visit. Administered Medications: No medications were administered Medication: 09:53 VIS not applicable for this client. ll1 Outcome: 09:49 Discharge ordered by . rn 09:53 Patient left the ED. ll1 09:53 Discharged to home ambulatory, ll1 09:53 Condition: stable 09:53 Discharge instructions given to patient, Instructed on discharge instructions, follow up and referral plans. left without discharge instructions Demonstrated understanding of instructions, left without discharge instructions Signatures: Esequiel Tatum MD MD rn Lewis, Lynsay, RN RN ll1 Olivia Leon sj2 Corrections: (The following items were deleted from the chart) 09:42 09:40 Resp 18bpm; Temp 97.3F; 70.31 kg; Height 5 ft. 9 in.; BMI: 22.8; Pain 0/10, ll1 Adult; ll1
--- NOTE | 2025-02-20 09:49 | EDPHYS ---
Physician Documentation [facility] Name: Nam Dinero Age: 39 yrs Sex: Male : 1985 Arrival Date: 02/20/2025 Time: 09:20 Bed IW3 Private MD: ED Physician Esequiel Tatum HPI: 02/20 09:47 This 39 yrs old Black Male presents to ER via Ambulatory with complaints of SEEKING rn PRESCRIPTION FOR ERECTION. 09:47 Patient reports wants prescription for erectile dysfunction. Patient has not seen a rn doctor for this but reports 3 years of difficulty with erections. No back pain or spinal trauma. Does get erections in the middle of the night and when he wakes up. Has not tried anything tvat-dnx-qlekaym. No hematuria or pain.. Historical: - PSHx: 09:40 hernia; ll1 - Immunization history:: Adult Immunizations up to date. - Infectious Disease History:: Denies. - Social history:: Smoking status: Patient reports the use of cigarette tobacco products, denies chronic smoking, but will smoke occasionally. - Family history:: not pertinent. - Hospitalizations: : No recent hospitalization is reported. ROS: 09:47 Constitutional: Negative for fever, chills, and weight loss, Abdomen/GI: Negative for rn abdominal pain, nausea, vomiting, diarrhea, and constipation, : Negative for injury, bleeding, discharge, and swelling, Neuro: Negative for headache, weakness, numbness, tingling, and seizure, Exam: 09:47 Constitutional: This is a well developed, well nourished patient who is awake, alert, rn and in no acute distress. Cardiovascular: Regular rate and rhythm. No pulse deficits. Abdomen/GI: Soft, nontender Neuro: Awake and alert, GCS 15, oriented to person, place, time, and situation. Cranial nerves II-XII grossly intact. Motor strength 5/5 in all extremities. Sensory grossly intact. Cerebellar exam normal. Normal gait. Vital Signs: 09:40 BP 138 / 97; Pulse 86; Resp 18; Temp 97.3; Pulse Ox 100% ; Weight 70.31 kg; Height 5 ll1 ft. 9 in. ; Pain 0/10; 09:40 Body Mass Index 22.89 (70.31 kg, 175.26 cm) ll1 09:40 Pain Scale: Adult ll1 MDM: 09:26 Medical Screening Exam initiated rn 09:47 Differential diagnosis: Erectile dysfunction. Data reviewed: vital signs, nurses notes, rn and as a result, I will discharge patient. Counseling: I had a detailed discussion with the patient and/or guardian regarding the historical points, exam findings, and any diagnostic results supporting the discharge/admit diagnosis, the need for outpatient follow up, to return to the emergency department if symptoms worsen or persist or if there are any questions or concerns that arise at home. Counseling: I had a detailed discussion with the patient and/or guardian regarding smoking cessation. Special discussion: I discussed with the patient/guardian in detail that at this point there is no indication for admission to the hospital. It is understood, however, that if the symptoms persist or worsen the patient needs to return immediately for re-evaluation. Special discussion: Based on the history and exam findings, there is no indication for further emergent testing or inpatient evaluation. I discussed with the patient/guardian the need to see the primary care provider for further evaluation of the symptoms. Administered Medications: No medications were administered Disposition Summary: 02/20/25 09:49 Discharge Ordered Notes: Location: Home rn Problem: an ongoing problem rn Symptoms: are unchanged rn Condition: Stable rn Diagnosis - Erectile dysfunction rn Followup: rn - With: Private Physician - When: As needed - Reason: Recheck today's complaints, Re-evaluation by your physician Discharge Instructions: - Discharge Summary Sheet rn - Erectile Dysfunction rn Forms: - Medication Reconciliation Form rn - Antibiotic traffic law attorney - Prescription Opioid Use rn - Patient Portal Instructions rn - Leadership Thank You Letter rn Signatures: Esequiel Tatum MD MD rn Lewis, Lynsay, RN RN 1
[2025-02-20 10:00] VITALS: BP 138/97; TEMP 97.3; O2SAT 100
== END 2025-02-20 09:53 | disposition home or self-care (01) ==
LOC: ER 09:20
DX: N52.9 Male erectile dysfunction, unspecified (principal)
CPT/HCPCS: 99282

== ENCOUNTER 2025-02-22 09:20 | Emergency (ER) | payer SELFPAY ==
--- OUTSIDE RECORDS SUMMARY | 2025-02-22 09:25 | XMS REPORT | Continuity of Care Document ---
Author Name Unknown Address [address] [facility] [address] [place] [address] [facility] Address [address] [facility]. [address] [place] [address] Care Team Providers Care Flavor Tank Tender Name Role Phone NO PHYSICIAN, . Primary [...] Source Schizophre court Complaint 913 12:00: 00 [facility] Hypertensi ve disorder Complaint [facility] Hyperchole sterolemia Complaint [facility] Long-term current use of drug therapy Complaint [facility] Psychogeni c formicatio n Problem [place] [...] DA Active U 2023-10 0 00:00: 00 [facility] No known drug allergy Miscella neous allergy Active 1- 00:00: 00 [facility] No known drug allergy Miscella neous allergy Active 1- 00:00: 00 [facility] Social History Social Habit Start Date Stop Date Quantity Comments Source History of tobacco use [facility] Smoking Status Start Date Stop Date Source Smokes tobacco daily (finding) 2020-11-17 09:54:00 [facility] Medications Ordered Medication Name Filled Medication Name Start Date Stop Date Current Medication? Ordering Clinician Indication Dosage Frequency Signature (SIG) Comments Components Source [facility] 2023-10 0 04:00: 00 12-02 05:00 :00 No 1U [facility] hydrOXYzine HCl hydrOXYzine HCl 2023-10 04:00: 00 11-02 05:00 :00 No 1{tbl} [facility] Depakote ER Depakote ER 2023-10 0 04:00: 00 11-02 05:00 :00 No 1{tbl} [facility] traZODone hydrochlori de traZODone hydrochlori de 2023-10 04:00: 00 11-02 05:00 :00 No 1{tbl} [facility] 11-27 05:00: 00 11-27 05:00 :00 No 1U [facility] Doxycycline (Monohydrat e) (Doxycyclin e) 100 Mg CAP Doxycycline (Monohydrat e) (Doxycyclin e) 100 Mg CAP 11-19 03:02: 00 Yes 1 [facility] Polyethylen e Glycol 3350 (Miralax) 17 Gm Packet Polyethylen e Glycol 3350 (Miralax) 17 Gm Packet 11-19 03:02: 00 Yes 1 [facility] Docusate Sodium (Colace *) 100 Mg CAP Docusate Sodium (Colace *) 100 Mg CAP 11-02 20:04: 00 Yes 1 [facility] Vital Signs Vital Name Observation Time Observation Value Comments S ource Height 2024-12-25 08:19:[address] [facility] Weight 2024-12-25 08:19:00 63.043290 kg [facility] BMI (Body Mass Index) 2024-12-25 08:19:00 20.7 kg/m2 [facility] Height 2024-12-23 03:31:[address] [facility] Weight 2024-12-23 03:31:00 65.598222 kg [facility] BMI (Body Mass Index) 2024-12-23 03:31:00 21.4 kg/m2 [facility] Height 2024-08-05 09:36:[address] [facility] Weight 2024-08-05 09:36:[address] [facility] BMI (Body Mass Index) 2024-08-05 09:36:00 26.6 kg/m2 [facility] Height 2024-08-05 01:03:[address] [facility] Weight 2024-08-05 01:03:[address] [facility] BMI (Body Mass Index) 2024-08-05 01:03:00 22.2 kg/m2 [facility] Heart Rate 2024-08-07 18:13:04 93.0 /min [facility] Systolic 2024-08-07 18:13:04 141.0 mm[Hg] [facility] Diastolic 2024-08-07 18:13:04 98.0 mm[Hg] [facility] Height 2024-08-07 18:13:04 177.8 cm [facility] Weight Kgs 2024-08-07 18:13:04 62.6 KG [facility] BMI 2024-08-07 18:13:04 19.8 kg/m2 [facility] Heart Rate 2024-04-06 19:11:27 106.0 /min [facility] Systolic 2024-04-06 19:11:27 152.0 mm[Hg] [facility] Diastolic 2024-04-06 19:11:27 98.0 mm[Hg] [facility] Height 2024-04-06 19:11:27 177.8 cm [facility] Weight Kgs 2024-04-06 19:11:27 71.7 KG [facility] BMI 2024-04-06 19:11:27 22.7 kg/m2 [facility] Heart Rate 2024-01-15 13:33:46 82.0 /min [facility] Systolic 2024-01-15 13:33:46 132.0 mm[Hg] [facility] Diastolic 2024-01-15 13:33:46 89.0 mm[Hg] [facility] Height 2024-01-15 13:33:46 177.8 cm [facility] Weight Kgs 2024-01-15 13:33:46 72.1 KG [facility] BMI 2024-01-15 13:33:46 22.8 kg/m2 [facility] Heart Rate 2023-11-20 14:39:42 92.0 /min [facility] Systolic 2023-11-20 14:39:42 140.0 mm[Hg] [facility] Diastolic 2023-11-20 14:39:42 95.0 mm[Hg] [facility] Height 2023-11-20 14:39:42 177.8 cm [facility] Weight Kgs 2023-11-20 14:39:42 70.3 KG [facility] BMI 2023-11-20 14:39:42 22.2 kg/m2 [facility] Heart Rate 2023-01-16 16:19:33 72.0 /min [facility] Systolic 2023-01-16 16:19:33 130.0 mm[Hg] [facility] Diastolic 2023-01-16 16:19:33 92.0 mm[Hg] [facility] Height 2023-01-16 16:19:33 176.5 cm [facility] Weight Kgs 2023-01-16 16:19:33 86.6 KG [facility] BMI 2023-01-16 16:19:33 27.8 kg/m2 [facility] Heart Rate 2022-11-13 15:41:02 83.0 /min [facility] Systolic 2022-11-13 15:41:02 127.0 mm[Hg] [facility] Diastolic 2022-11-13 15:41:02 83.0 mm[Hg] [facility] Height 2022-11-13 15:41:02 176.5 cm [facility] Systolic 2022-11-05 15:59:38 121.0 mm[Hg] [facility] Diastolic 2022-11-05 15:59:38 85.0 mm[Hg] [facility] Height 2022-11-05 15:59:38 176.5 cm [facility] Weight Kgs 2022-11-05 15:59:38 85.7 KG [facility] BMI 2022-11-05 15:59:38 27.5 kg/m2 [facility] Heart Rate 2022-11-05 15:59:38 93.0 /min [facility] Heart Rate 2022-08-06 16:21:20 71.0 /min [facility] Systolic 2022-08-06 16:21:20 128.0 mm[Hg] [facility] Diastolic 2022-08-06 16:21:20 81.0 mm[Hg] [facility] Height 2022-08-06 16:21:20 176.5 cm [facility] Weight Kgs 2022-08-06 16:21:20 94.3 KG [facility] BMI 2022-08-06 16:21:20 30.3 kg/m2 [facility] Encounters Start Date/Time End Date/Time Encounter Type Admission Type Attending [facility] Care Department Encounter ID Source 2023-05-24 15:21:08 Inpatient TEXANA TEXANA [id number] [facility] 2023-01-16 11:30:14 Inpatient TEX[facility] TEX[facility] [id number] [facility] 2022-11-12 11:17:16 Inpatient TEXANA TEXANA [id number] [facility] 2022-11-10 23:08:24 Inpatient TEXANA TEXANA [id number] [facility] 2022-11-05 09:50:54 Inpatient TEXANA TEXANA [id number] [facility] 2022-08-06 11:55:36 Inpatient TEXANA TEXANA [id number] [facility] 2022-07-03 14:40:59 Inpatient TEXANA TEXANA [id number] [facility] 2022-04-26 10:51:45 [id number] [facility] 2022-04-11 16:28:03 [facility] [id number] [facility] 2024-12-25 08:11:00 2024-12-25 08:27:00 Emergency ER MARTINE GIBSON [facility] [id number] [facility] 2024-12-25 08:11:00 2024-12-25 08:27:00 Departed Emergency Room [facility] [id number] [facility] 2024-12-23 03:27:00 2024-12-23 03:41:00 Emergency ER RUSLANERROL HAMZAH [facility] [id number] [facility] 2024-12-23 03:27:00 2024-12-23 03:41:00 Departed Emergency Room [facility] [id number] [facility] [place] [place] 2024-08-05 09:25:00 2024-08-05 10:47:00 Emergency ER LAVONNE BINGHAMYLE [facility] [id number] [facility] 2024-08-05 09:25:00 2024-08-05 10:47:00 Departed Emergency Room [facility] [id number] [facility] 2024-08-05 00:51:00 2024-08-05 03:56:00 Departed Emergency Room [facility] [id number] [facility] 2024-08-01 22:22:00 2024-08-02 01:20:00 Emergency EM Teodoro Phillips HCAPM CIARA [id number] [facility] 2023-12-31 08:30:00 2023-12-31 08:30:00 Outpatient UNKNOWN ARVIN ESPINAL TEXANA [id number] 2023-11-19 01:01:00 2023-11-19 03:26:00 Emergency ER ANGELES BERG [facility] [id number] [facility] 2023-11-02 17:53:00 2023-11-02 20:46:00 Emergency ER FANNY BINGHAM [facility] [id number] [facility] 2023-11-02 17:53:00 2023-11-02 17:53:00 emergency [facility] [id number] 2023-11-01 11:32:00 2023-11-01 14:07:00 emergency [facility] [id number] 2023-11-01 11:32:00 2023-11-01 14:07:00 Emergency ER MARILU FERRER [facility] [id number] [facility] 2022-07-17 10:54:00 2022-07-17 12:36:00 emergency [id number] 2022-07-17 10:54:00 2022-07-17 12:36:00 Emergency ER FANNY BINGHAM [facility] [id number] [facility] 2022-04-11 17:27:00 2022-04-11 17:27:00 Outpatient INTERNAL TEXANA REFERRAL^^ 4^INTERNAL TEXANA REFERRAL^^ 4^INTERNAL TEXANA REFERRAL^^ 4 TEXANA TEXANA [id number] [facility] 2022-04-11 16:27:00 2022-04-11 16:27:00 Outpatient INTERNAL VERO REFERRAL VERO PHAM [id number] [facility] 2021-08-09 13:10:00 2021-08-09 13:10:00 Outpatient OTHER LOCAL AUTHORITY BROOKS LARA [id number] [facility] 2021-08-09 13:10:00 2021-08-09 13:10:00 Outpatient OTHER LOCAL AUTHORITY BROOKS LARA [id number] [facility] 2020-11-17 09:32:00 2020-11-17 10:15:00 Emergency ER TABITHA MENDEZORY [facility] [id number] [facility] 2020-05-04 11:40:00 2020-05-05 00:03:00 Emergency E CHINTAN FREED [facility] [id number] [facility] 2003-03-05 12:56:00 2003-03-05 14:35:00 Emergency ER MARQUIS BORDEN [facility] [id number] [facility] Results Test Description Test Time Test Comments Results Result Co mments Source [facility] CtrLactic [id number] 02:55:00* Test Item Value Reference Range Interpretation Comme nts Lactic Acid Level (test code = QLC2737) 0.94 [facility] CtrBilirubin [id number] 02:54:00* Test Item Value Reference Range Interpretation Comme nts Total Bilirubin (test code = JTU5880) 0.4 [facility] CtrSerum or plasma urea nitrogen measurement (mass/volume)2024-08-05 02:54:00* Test Item Value Reference Range Interpretation Comme nts Blood Urea Nitrogen (test co de = 3094-0) 12 [facility] [id number] 02:54:00* Test Item Value Reference Range Interpretation Comme nts Aspartate Amino Transf (AST/ SGOT) (test code = XNQ9083) 29 [facility] CtrCreatinine [id number] 02:54:00* Test Item Value Reference Range Interpretation Comme nts Creatinine (test code = 698937805) 0.88 [facility] CtrEstimated glomerular filtration rate (GFR) xhfhbjxmlgrht2083-46-05 02:54:00* Test Item Value Reference Range Interpretation Comme nts Glomerular Filtration Rate C alc (test code = 122834212) > 60.00 [facility] CtrBUN/creatinine vehqe1537-86-41 02:54:00* Test Item Value Reference Range Interpretation Comme nts BUN/Creatinine Ratio (test c ode = 60642311) 13.6 [facility] CtrBody fluid potassium qteqldfuddl5657-00-35 02:54:00* Test Item Value Reference Range Interpretation Comme nts Potassium Level (test code = 2821-7) 3.6 [facility] ZhrQQ48162-59-41 02:54:00* Test Item Value Reference Range Interpretation Comme nts Carbon Dioxide Level (test c ode = 12983766) 22 [facility] CtrAnion gap vhnralmryfa4006-19-35 02:54:00* Test Item Value Reference Range Interpretation Comme nts Anion Gap (test code = 61497861) 17.6 [facility] CtrCalcium xtktq5824-74-86 02:54:00* Test Item Value Reference Range Interpretation Comme nts Calcium Level (test code = 60999058) 9.4 [facility] CtrGlobulin wbf9616-17-37 02:54:00* Test Item Value Reference Range Interpretation Comme nts Globulin (test code = 976869994) 2.8 [facility] CtrALT (SGPT) ser/ocdc5571-71-62 02:54:00* Test Item Value Reference Range Interpretation Comme nts Alanine Aminotransferase (AL T/SGPT) (test code = 1742-6) 24 [facility] CtrALP ser/ubth3002-09-91 02:54:00* Test Item Value Reference Range Interpretation Comme nts Total Alkaline Phosphatase ( test code = 6768-6) 77 [facility] CtrBilirubin zfdgf2533-86-64 02:54:00* Test Item Value Reference Range Interpretation Comme nts Total Bilirubin (test code = BIB4020) 0.4 [facility] CtrSerum or plasma urea nitrogen measurement (mass/volume)2024-08-05 02:54:00* Test Item Value Reference Range Interpretation Comme [facility] Blood Urea Nitrogen (test co de = 3094-0) 12 [facility] EpgCDW9325-40-46 02:54:00* Test Item Value Reference Range Interpretation Comme nts Aspartate Amino Transf (AST/ SGOT) (test code = UJW6245) 29 [facility] CtrCreatinine qdtwr7296-26-93 02:54:00* Test Item Value Reference Range Interpretation Comme nts Creatinine (test code = 481569742) 0.88 [facility] CtrEstimated glomerular filtration rate (GFR) bvhujzcbdzgsi1808-32-37 02:54:00* Test Item Value Reference Range Interpretation Comme [facility] Glomerular Filtration Rate C alc (test code = 308388893) > 60.00 [facility] CtrBUN/creatinine atxdr6815-13-12 02:54:00* Test Item Value Reference Range Interpretation Comme [facility] BUN/Creatinine Ratio (test c ode = 30545261) 13.6 [facility] CtrBody fluid potassium wygsklwowjo3949-53-14 02:54:00* Test Item Value Reference Range Interpretation Comme nts Potassium Level (test code = 2821-7) 3.6 [facility] JcwXB92854-72-92 02:54:00* Test Item Value Reference Range Interpretation Comme nts Carbon Dioxide Level (test c ode = 60312519) 22 [facility] CtrAnion gap eouanmpkhfc6329-59-40 02:54:00* Test Item Value Reference Range Interpretation Comme nts Anion Gap (test code = 25955361) 17.6 [facility] CtrCalcium bganl1911-44-92 02:54:00* Test Item Value Reference Range Interpretation Comme nts Calcium Level (test code = 06964790) 9.4 [facility] CtrGlobulin ffo4558-31-90 02:54:00* Test Item Value Reference Range Interpretation Comme nts Globulin (test code = 893231348) 2.8 [facility] CtrALT (SGPT) ser/hkgg2244-77-78 02:54:00* Test Item Value Reference Range Interpretation Comme nts Alanine Aminotransferase (AL T/SGPT) (test code = 1742-6) 24 [facility] CtrALP ser/kpms4288-43-41 02:54:00* Test Item Value Reference Range Interpretation Comme nts Total Alkaline Phosphatase ( test code = 6768-6) 77 [facility] CtrAbsolute eosinophil sekmv9724-99-56 02:25:00* Test Item Value Reference Range Interpretation Comme nts Eosinophils # (Auto) (test c ode = HJD0564) 0.07 [facility] CtrRBC rwmgv9618-09-18 02:25:00* Test Item Value Reference Range Interpretation Comme [facility] Red Blood Count (test code = 31652542) 4.54 [facility] KcwXumugrxsdp4978-21-89 02:25:00* Test Item Value Reference Range Interpretation Comme [facility] Hematocrit (test code = 23443053) 39.9 [facility] CtrMCV (mean corpuscular volume) determination 2024-08-05 02:25:00* Test Item Value Reference Range Interpretation Comme [facility] Mean Corpuscular Volume (lori t code = 29698-0) 87.9 [facility] CtrMean corpuscular hemoglobin (MCH) determination 2024-08-05 02:25:00* Test Item Value Reference Range Interpretation Comme [facility] Mean Corpuscular Hemoglobin (test code = 86975708) 28.9 [facility] hemoglobin concentration (MCHC) mieraledzgtdn6936-88-29 02:25:00* Test Item Value Reference Range Interpretation Comme [facility] Mean Corpuscular Hemoglobin Concent (test code = 80270583) 32.8 [facility] CtrRBC distribution width coefficient of variation 2024-08-05 02:25:00* Test Item Value Reference Range Interpretation Comme [facility] Red Cell Distribution Width (test code = 47231599) 12.7 [facility] CtrPlatelet slvcg6750-40-76 02:25:00* Test Item Value Reference Range Interpretation Comme [facility] Platelet Count (test code = 22466773) 307 [facility] CtrMean platelet kubuxz3789-60-69 02:25:00* Test Item Value Reference Range Interpretation Comme nts Mean Platelet Volume (test c ode = 64235138) 10.4 [facility] CtrNeutrophils seg % wlh5576-17-41 02:25:00* Test Item Value Reference Range Interpretation Comme nts Neutrophils (%) (Auto) (test code = 50724-3) 58.2 [facility] CtrAbsolute immature granulocyte aacyy9886-84-38 02:25:00* Test Item Value Reference Range Interpretation Comme nts Absolute Immature Granulocyt e (auto (test code = 58182-2) 0.02 [facility] CtrBlood band neutrophils count (number/volume) 2024-08-05 02:25:00* Test Item Value Reference Range Interpretation Comme nts Neutrophils # (Auto) (test c ode = 20442-0) 5.85 [facility] CtrAbsolute lymphocyte wsdot0571-77-28 02:25:00* Test Item Value Reference Range Interpretation Comme nts Lymphocytes # (Auto) (test c ode = 67506-7) 3.21 [facility] CtrAbsolute basophil ajkvo6114-61-51 02:25:00* Test Item Value Reference Range Interpretation Comme nts Basophils # (Auto) (test cod e = 17320235) 0.05 [facility] CtrAbsolute NRBC dburb2547-32-17 02:25:00* Test Item Value Reference Range Interpretation Comme nts Nucleated Red Blood Cells # (test code = 746764821) 0 [facility] CtrAbsolute eosinophil tpfvz6868-44-90 02:25:00* Test Item Value Reference Range Interpretation Comme [facility] Eosinophils # (Auto) (test c ode = VVR3827) 0.07 [facility] CtrRBC uhmhn9465-58-73 02:25:00* Test Item Value Reference Range Interpretation Comme [facility] Red Blood Count (test code = 72274935) 4.54 [facility] HihOsddfphfnr1319-53-19 02:25:00* Test Item Value Reference Range Interpretation Comme nts Hematocrit (test code = 76740100) 39.9 [facility] CtrMCV (mean corpuscular volume) determination 2024-08-05 02:25:00* Test Item Value Reference Range Interpretation Comme [facility] Mean Corpuscular Volume (lori t code = 92136-7) 87.9 [facility] CtrMean corpuscular hemoglobin (MCH) determination 2024-08-05 02:25:00* Test Item Value Reference Range Interpretation Comme [facility] Mean Corpuscular Hemoglobin (test code = 94970482) 28.9 [facility] CtrMean corpuscular hemoglobin concentration (MCHC) cptksvvxgamkn6575-70-93 02:25:00* Test Item Value Reference Range Interpretation Comme [facility] Mean Corpuscular Hemoglobin Concent (test code = 92343347) 32.8 [facility] CtrRBC distribution width coefficient of variation 2024-08-05 02:25:00* Test Item Value Reference Range Interpretation Comme [facility] Red Cell Distribution Width (test code = 11652811) 12.7 [facility] CtrPlatelet ukbuo4445-57-46 02:25:00* Test Item Value Reference Range Interpretation Comme [facility] Platelet Count (test code = 95493969) 307 [facility] CtrMean platelet tupkss4736-63-95 02:25:00* Test Item Value Reference Range Interpretation Comme [facility] Mean Platelet Volume (test c ode = 18744096) 10.4 [facility] CtrNeutrophils seg % yhw6778-24-18 02:25:00* Test Item Value Reference Range Interpretation Comme [facility] Neutrophils (%) (Auto) (test code = 63756-7) 58.2 [facility] CtrAbsolute immature granulocyte faveb2231-71-91 02:25:00* Test Item Value Reference Range Interpretation Comme [facility] Absolute Immature Granulocyt e (auto (test code = 02743-6) 0.02 [facility] CtrBlood band neutrophils count (number/volume) 2024-08-05 02:25:00* Test Item Value Reference Range Interpretation Comme [facility] Neutrophils # (Auto) (test c ode = 60331-9) 5.85 [facility] CtrAbsolute lymphocyte slpmv8800-38-63 02:25:00* Test Item Value Reference Range Interpretation Comme nts Lymphocytes # (Auto) (test c ode = 22082-5) 3.21 [facility] CtrAbsolute basophil ejrzg1157-66-04 02:25:00* Test Item Value Reference Range Interpretation Comme nts Basophils # (Auto) (test cod e = 90212686) 0.05 [facility] CtrAbsolute NRBC yswyl4296-19-39 02:25:00* Test Item Value Reference Range Interpretation Comme nts Nucleated Red Blood Cells # (test code = 858794276) 0 [facility] CtrUrine baszdkz7129-82-39 01:50:00* Test Item Value Reference Range Interpretation Comme nts Urine Culture (test code = 630-4) SPECIMEN HAS BEEN RECEIVED IN LAB AND IS IN PROGRESS. [facility] xztuhcr4589-82-63 01:50:00* Test Item Value Reference Range Interpretation Comme nts Urine Culture (test code = 630-4) SPECIMEN HAS BEEN RECEIVED IN LAB AND IS IN PROGRESS. [facility] examination for white blood cells (WBC) 2024-08-05 01:48:00* Test Item Value Reference Range Interpretation Comme nts Urine WBC (test code = 627404555) 03-16 [facility] for white blood cells (WBC) 2024-08-05 01:48:00* Test Item Value Reference Range Interpretation Comme nts Urine WBC (test code = 844279931) 03-16 [facility] CtrRBC count ur oasl6034-88-27 01:42:00* Test Item Value Reference Range Interpretation Comme nts Urine RBC (test code = 798-9) >100 [facility] CtrAutomated epithelial cells count in urine sediment (number/area)2024-08-05 01:42:00* Test Item Value Reference Range Interpretation Comme nts Urine Epithelial Cells (test code = 17358-8) 0-2 [facility] CtrBacteria detection in urine sediment by light rlrapkgiki0363-05-82 01:42:00* Test Item Value Reference Range Interpretation Comme nts Urine Bacteria (test code = 81221-7) None Seen [facility] casts detection by automated method 2024-08-05 01:42:00* Test Item Value Reference Range Interpretation Comme nts Urine Casts (test code = 71380-5) 3-5 [facility] CtrRBC count ur llaw5369-64-75 01:42:00* Test Item Value Reference Range Interpretation Comme nts Urine RBC (test code = 798-9) >100 [facility] CtrAutomated epithelial cells count in urine sediment (number/area)2024-08-05 01:42:00* Test Item Value Reference Range Interpretation Comme nts Urine Epithelial Cells (test code = 15363-9) 0-2 [facility] CtrBacteria detection in urine sediment by light vdqudeiioh9648-25-79 01:42:00* Test Item Value Reference Range Interpretation Comme nts Urine Bacteria (test code = 23593-4) None [facility]en [facility] casts detection by automated method 2024-08-05 01:42:00* Test Item Value Reference Range Interpretation Comme nts Urine Casts (test code = 91908-2) 3-5 [facility]trUrine glucose [id number] 01:37:00* Test Item Value Reference Range Interpretation Comme nts Urine Glucose (UA) (test cod e = 2349-9) Negative [facility] CtrBilirubin [id number] 01:37:00* Test Item Value Reference Range Interpretation Comme nts Urine Bilirubin (test code = 632690523) Negative [facility] CtrKetones [id number] 01:37:00* Test Item Value Reference Range Interpretation Comme nts Urine Ketones (test code = 76224386) Trace [facility] CtrSpecific gravity of Urine by Automated test strip 2024-08-05 01:37:00* Test Item Value Reference Range Interpretation Comme nts Urine Specific [place] (test code = 14410-1) 1.012 [facility]trUrine blood [id number] 01:37:00* Test Item Value Reference Range Interpretation Comme nts Urine Blood (test code = 24242-0) 3+ (LARGE) [facility] CtrpH [id number] 01:37:00* Test Item Value Reference Range Interpretation Comme nts Urine pH (test code = 2756-5) 5.500 [facility] CtrProtein [id number] 01:37:00* Test Item Value Reference Range Interpretation Comme nts Urine Protein (test code = 43178960) 2+ [facility] CtrUrobilinogen, urine, [id number] 01:37:00* Test Item Value Reference Range Interpretation Comme nts Urine Urobilinogen (test cod e = 016376742) 1.0 [facility] CtrUrine nitrate [id number] 01:37:00* Test Item Value Reference Range Interpretation Comme nts Urine Nitrate (test code = 08242-8) [facility] vhyhobcil5992-07-65 01:37:00* Test Item Value Reference Range Interpretation Comme [facility] Urine Leukocyte Esterase (te st code = 155545655) Trace [facility] CtrColor of Urine by Wwyb3969-91-32 01:37:00* Test Item Value Reference Range Interpretation Comme nts Urine Color (test code = 14101-3) [place] [facility] CtrAppearance of [id number] 01:37:00* Test Item Value Reference Range Interpretation Comme nts Urine Appearance (test code = 5767-9) Cloudy [facility] nydlcmzsi8259-99-18 01:37:00* Test Item Value Reference Range Interpretation Comme nts Urine Glucose (UA) (test cod e = 2349-9) Negative [facility] CtrBilirubin [id number] 01:37:00* Test Item Value Reference Range Interpretation Comme nts Urine Bilirubin (test code = 669663824) Negative [facility] CtrKetones [id number] 01:37:00* Test Item Value Reference Range Interpretation Comme nts Urine Ketones (test code = 64057502) Trace [facility] CtrSpecific gravity of Urine by Automated test strip 2024-08-05 01:37:00* Test Item Value Reference Range Interpretation Comme nts Urine Specific [place] (test code = 53813-7) 1.012 [facility] sitpxyudg4771-52-49 01:37:00* Test Item Value Reference Range Interpretation Comme [facility] Urine Blood (test code = 01924-5) 3+ (LARGE) [facility] CtrpH [id number] 01:37:00* Test Item Value Reference Range Interpretation Comme [facility] Urine pH (test code = 2756-5) 5.500 [facility] CtrProtein [id number] 01:37:00* Test Item Value Reference Range Interpretation Comme [facility] Urine Protein (test code = 75525355) 2+ [facility] CtrUrobilinogen, urine, [id number] 01:37:00* Test Item Value Reference Range Interpretation Comme [facility] Urine Urobilinogen (test cod e = 433903012) 1.0 [facility] CtrUrine nitrate exkitxhlm2602-25-96 01:37:00* Test Item Value Reference Range Interpretation Comme [facility] Urine Nitrate (test code = 14524-0) Negative [facility] esterase xxfhechca7377-34-61 01:37:00* Test Item Value Reference Range Interpretation Comme [facility] Urine Leukocyte Esterase (te st code = 356657741) Trace [facility] CtrColor of Urine by Pnpv1578-21-38 01:37:00* Test Item Value Reference Range Interpretation Comme [facility] Urine Color (test code = 65785-1) [place] [facility] CtrAppearance of Dhloj7363-77-99 01:37:00* Test Item Value Reference Range Interpretation Comme [facility] Urine Appearance (test code = 5767-9) Cloudy [facility] CtrUA RFLX MICR CULT IF [id number] 00:01:00 * Test Item Value Reference Range Interpretation Comme [facility] UA COLOR (test code = COLU) YELLOW [...] Gross HematuriaSOURCE OF URINE: CLEAN CATCHCBC W/AUTO [id number] 23:56:00* Test Item Value Reference Range Interpretation [...] = NRBC#) 0.0 K/mm3 0.00-0.01 N RBC [id number] 23:56:00* Test Item Value Reference Range Interpretation [...] NORMAL Notes <thead> Date/Time Note Provider Source [facility] [id number] 08:30:38 Future Tests Future scheduled test information [...] Constipation, Adult, Easy-to -Read Erectile Dysfunction Prostatitis, Qzkb-lx-Qduy [facility]2025-03-19 03:42:24 Patient Care Team <thead> Team Status: Active Member Role Status Dates . NO PHYSICIAN primary care physician Active RADHA MCKEON Next of Kin Active RADHA MCKEON Emergency Contact Active RAND MIKE Guarantor Active [facility]2025-03-19 03:42:24 Future Tests Future scheduled test information [...] Constipation, Adult, Easy-to -Read Erectile Dysfunction Prostatitis, Dvkw-on-Xcwk [facility]2024-11-02 02:23:45No ResultsCOSHANELCHENG Gomezroxi Sufyuu1906-27-70 02:23:45No ResultsMDCLARICE GomezhumphreySelect Specialty HospitalPiqmne4498-88-91 02:23:45 SatAug 05 08:00:00 EDT 2023: "I love nature. I love to fish. I'm intelligent." SatNov 05 07:00:00 EST 2022: "I love nature. I love to fish. I'm intelligent." SatMar 17 08:00:00 EDT 2023: "I love nature. I love to fish. I'm intelligent." SatNov 18 07:00:00 EST 2023: "I love nature. I love to fish. I'm intelligent." GIDEON Granados Fmolsh6046-22-74 02:23:45 Goals Improve mood- During the nex t 90 days, Rand will take his medications as prescribed and not miss more than one medication dosage. He will report any side effects to either the nurse and/or prescriber. During the next 90 days, Rand will continue to identify 3 ways he is coping with any psychosis and report them to his laboratory animal caretaker. Interventions Med training and supports Psychosocial Rehab [...] TSH SatFebruary 04 08:00: 00 EDT 2023 [id number] Drug-Scr SatNov 05 07:00:00 EST 2022 [...] 2023 med injection AMB ER SHAMSIDDEEN GIDEON aDrwin Snoqrb5361-04-34 06:03:13[facility] 2024[facility]:03:[facility]2024-10-31 06:03:13Wed Aug 05 08:00:00 EDT 2023: "I love nature. I love to fish. I'm intelligent." SatNov 05 07:00:00 EST 2022: "I love nature. I love to fish. I'm intelligent." SatMar 17 08:00:00 EDT 2023: "I love nature. I love to fish. I'm intelligent." SatNov 18 07:00:00 EST 2023: "I love nature. I love to fish. I'm intelligent." Brooks Monterroso Ugtebx1179-59-85 06:03:13 Goals Improve mood- During the nex t 90 days, Rand will take his medications as prescribed and not miss more than one medication dosage. He will report any side effects to either the nurse and/or prescriber. During the next 90 days, Rand will continue to identify 3 ways he is coping with any psychosis and report them to his laboratory animal caretaker. Interventions Med training and supports Psychosocial Rehab [...] TSH SatFebruary 04 08:00: 00 EDT 2023 [id number] 7 Drug-Scr SatNov 05 07:00:00 EST 2022 CBC With Differential/Platelet Sat 3 0 07:00:00 EST 2022 Comp. Metabolic Panel (14) SatNov 05 07 :00:00 EST 2022 Glucose SatNov 05 07:00:00 EST 2022 Lipid Panel SatNov 05 07:00:00 EST 2022 Thyroid Panel With TSH SatNov 05 07:00: 00 EST 2022 Brooks Monterroso Dwtuug1012-86-44 11:14:06 Patient Care Team <thead> Team Status: Active Member Role Status Dates . NO PHYSICIAN primary care physician Active HAMZAH MILLER DO Emergency Provider Active RADHA MCKEON Next of Kin Active RADHA MCKEON Emergency Contact Active RAND MCKEON Guarantor Active [facility] [id number] 11:14:06 Future Tests Future scheduled test information [...] Constipation, Adult, Easy-to -Read Erectile Dysfunction Prostatitis, Xovu-in-Afld [facility] Cbd2187-38-10 03:57:31 Patient Care Team <thead> Team Status: Active Member Role Status Dates . NO PHYSICIAN primary care physician Active HAMZAH MILLER DO Emergency Provider Active RADHA MCKEON Next of Kin Active RADHA MIKE Emergency Contact Active RAND MCKEON Guarantor Active [facility] [id number] 03:57:31 Future Tests Future scheduled test information [...] Constipation, Adult, Easy-to -Read Erectile Dysfunction Prostatitis, Psnh-kx-Bvvg [facility] Eke2780-34-52 23:04:00 [facility] ([facility]) EMERGENCY PROVIDER REPORT REPORT#:[id number] REPORT STATUS: Signed DATE:08/01/24 TIME:2303 PATIENT: RAND MCKEON UNIT #: [id number] ROOM/BED: : 83 AGE: 38 SEX: M [...] (Auto) (20.5 - 51.1 %) 58.5 H Winston % (Auto) (1.7 - 9.3 %) 6.8 Eos % (Auto) (0.0 - 6.0 %) 3.5 Baso % (Auto) (0.0 - 2.0 %) 0.6 Neut # (Auto) (1.8 - 7.6 K/mm3) 2.2 Lymph # (Auto) (0.6 - 3.0 K/mm3) 4.2 H [place] # (Auto) (0.2 - 1.5 K/mm3) 0.5 [...] pH (5.0 - 7.0) 6.0 Ur Specific [place] (1.005 - 1.015) >1.030 Urine Protein (NEGATIVE) [...] Dai MD Follow-Up: Call for appointment Address: [address] [place] [address] Provider Referral: America Vang DO Follow-Up: Call for appointment Address: [address] [place] [address] [address] [place] [address] Discharge Note I have spoken with the [...] call to 911. at [phone] RPT #: [id number] [facility]
--- NOTE | 2025-02-22 11:20 | RAD REPORT ---
EXAMINATION: CT PELVIS WITHOUT CONTRAST CLINICAL INDICATION: Male, 39 years old.[facility] MAIN groin/thigh pain - right, prior inguinal hernia Bed Name: IW2 TECHNIQUE: CT pelvis was performed, without IV contrast, as per department protocol. Axial, sagittal and coronal reconstructions were obtained. One or more of the following dose reduction techniques were used: Automated exposure control, adjustment of the mA and/or kV according to patient size, and/ or iterative reconstruction. Unless otherwise specified, incidental findings do not require dedicated imaging follow-up. COMPARISON: CT abdomen and pelvis 11/09/2023 FINDINGS: The lack of intravenous contrast limits the sensitivity of this exam for evaluation of solid visceral organs, vascular structures, and retroperitoneum. MUSCULOSKELETAL: No acute or suspicious osseous abnormality. URINARY SYSTEM: No abnormalities of the included kidneys and ureters. Urinary bladder is unremarkable . GASTROINTESTINAL TRACT: Included small bowel is normal in caliber. Fluid opacification throughout mos t of the included small bowel especially in the pelvis without significant distention, as well as along the proximal colon. No wall thickening or bowel inflammatory changes. LYMPH NODES: No lymphadenopathy. INCLUDED ABDOMINAL AORTA AND OTHER VESSELS: Normal caliber, with no abnormalities on noncontrast CT. ADDITIONAL FINDINGS: None. Specifically, no evidence of inguinal or umbilical hernias identified. IMPRESSION: Fluid opacification throughout most of the included small bowel especially in the pelvis without sign ificant distention, as well as along the proximal colon, findings are nonspecific and may relate to diarrheal state. No other abnormalities of the pelvis. Evaluation limited by lack of IV contrast.
--- NOTE | 2025-02-22 11:23 | ER ---
Nurse's Notes [facility] Name: Nam Dinero Age: 39 yrs Sex: Male : 1985 Arrival Date: 02/22/2025 Time: 09:20 Bed 19 [facility] MD: Diagnosis: Pain in right thigh Presentation: 02/22 09:33 Chief complaint: Patient states: "I had surgery and I heard something pop and I want to ss see if I can get it fixed today, as soon as possible. Pt reports he had a hernia repair 1 year ago to R groin. Coronavirus screen: Client denies travel out of the [place] in the last 14 days. Ebola Screen: Patient denies exposure to infectious person. Patient denies travel to an Ebola-affected area in the 21 days before illness onset. Initial Sepsis Screen: Does the patient meet any 2 criteria? No. Patient's initial sepsis screen is negative. Does the patient have a suspected source of infection? No. Patient's initial sepsis screen is negative. Risk Assessment: Do you want to hurt yourself or someone else? Patient reports no desire to harm self or others. Onset of symptoms was February 22, 2025. 09:33 Method Of Arrival: Ambulatory ss 09:33 Acuity: JOCY 3 ss Historical: - Allergies: 09:35 No Known Allergies; ss - Home Meds: 09:35 None [Active]; ss - PMHx: 09:35 ADHD; tachycardia; Hypertensive disorder; ss - PSHx: 09:35 hernia; ss - Immunization history:: Adult Immunizations unknown. - Infectious Disease History:: Denies. - Social history:: Smoking status: Patient reports the use of cigarette tobacco products, denies chronic smoking, but will smoke occasionally. Screenin:39 [facility] ED Fall Risk Assessment (Adult) History of falling in the last 3 months, ap3 including since admission No falls in past 3 months (0 pts) Confusion or Disorientation No (0 pts) Intoxicated or Sedated No (0 pts) Impaired Gait No (0 pts) Mobility Assist Device Used No (0 pt) Altered Elimination No (0 pt) Score/Fall Risk Level 0 - 2 = Low Risk Oriented to surroundings, Maintained a safe environment, Educated pt \\T\\ family on fall prevention, incl call for assistance when getting out of bed, Assessed \\T\\ reinforced patient's understanding of fall precautions, Hourly rounding (assess needs \\T\\ fall precautionary measures) done, Used ambulatory aids as needed (educated on \\T\\ assisted with). Abuse screen: Denies threats or abuse. Nutritional screening: No deficits noted. Tuberculosis screening: No symptoms or risk factors identified. Assessment: 11:38 General: Appears in no apparent distress. Behavior is calm, cooperative, appropriate ap3 for age. Pain: Complains of pain in medial aspect of right thigh. Neuro: Level of Consciousness is awake, alert, obeys commands, Oriented to person, place, time, situation. Cardiovascular: Patient's skin is warm and dry. Respiratory: Airway is patent Respiratory effort is even, unlabored, Respiratory pattern is regular, symmetrical. Vital Signs: 09:33 Temp 98(TE); Weight 68.04 kg; Height 5 ft. 9 in. ; Pain 10/10; ss 09:37 Pulse 100; Pulse Ox 100% on R/A; ss 09:37 BP 139 / 105; ss 10:11 Resp 16; ss 09:33 Body Mass Index 22.15 (68.04 kg, 175.26 cm) ss 09:33 Pain Scale: Adult ss ED Course: 09:23 Patient arrived in ED. im 09:27 Olimpia Cain PA-C is PHCP. sb4 09:27 Benjamín Taylor DO is Attending Physician. sb4 09:35 Triage completed. ss 09:35 Arm band placed on right wrist. ss 10:02 CT Pelvis wo Cont In Process Unspecified. EDMS 11:18 Melani Charlton, RN is Primary Nurse. me1 11:39 Patient has correct armband on for positive identification. Bed in low position. Call ap3 light in reach. Provided Education on: discharge instructions . 11:39 No provider procedures requiring assistance completed. Patient did not have IV access ap3 during this emergency room visit. Administered Medications: No medications were administered Medication: 11:40 VIS not applicable for this client. ap3 Outcome: 11:23 Discharge ordered by . sb4 11:39 Discharged to home ambulatory, ap3 11:39 Condition: good 11:39 Discharge instructions given to patient, Instructed on discharge instructions, follow up and referral plans. Demonstrated understanding of instructions, follow-up care, 11:40 Patient left the ED. ap3 Signatures: Dispatcher [employer] EDMS Dunlap, Sarah, RN RN ss Palmira Tracy RN RN [email or web address] Olimpia Cain, PAWanda PAWanda sb4 Aracelis Spaulding Michelle RN RN me1 Corrections: (The following items were deleted from the chart) 09:36 09:35 PMHx: None; [facility]
--- NOTE | 2025-02-22 11:23 | EDPHYS ---
Physician Documentation [facility] Name: Nam Dinero Age: 39 yrs Sex: Male : 1985 Arrival Date: 02/22/2025 Time: 09:20 Bed 19 Private MD: ED Physician Benjamín Taylor HPI: 02/22 09:51 This 39 yrs old Black Male presents to ER via Ambulatory with complaints of Leg Pain. sb4 09:51 patient is complaining of pain in his right upper medial thigh and difficulty getting sb4 an erection. states he had a right inguinal hernia repair 1 year ago in [place], and believes they may have damaged something on the inside. denies any trauma to the area. no difficulty urinating. no numbness or tingling. Historical: - Allergies: 09:35 No Known Allergies; ss - Home Meds: 09:35 None [Active]; ss - PMHx: 09:35 ADHD; tachycardia; Hypertensive disorder; ss - PSHx: 09:35 hernia; ss - Immunization history:: Adult Immunizations unknown. - Infectious Disease History:: Denies. - Social history:: Smoking status: Patient reports the use of cigarette tobacco products, denies chronic smoking, but will smoke occasionally. ROS: 09:51 Constitutional: Negative for fever, chills, and weight loss, sb4 09:51 MS/extremity: Positive for pain, of the medial aspect of right thigh, 09:51 All other systems are negative, Exam: 09:51 Head/Face: Normocephalic, atraumatic. Eyes: Extra-ocular motions intact. Periorbital sb4 areas with no swelling, redness, or edema. ENT: Mucous membranes moist. Respiratory: No increased work of breathing, no retractions or nasal flaring. Abdomen/GI: Soft, non-tender, no distension. Skin: Warm, dry with normal turgor. Normal color with no rashes, no lesions, and no evidence of cellulitis. 09:51 Constitutional: The patient appears in no acute distress, alert, awake, 09:51 Musculoskeletal/extremity: mild tenderness upper medial right thigh- no swelling, warmth, erythena. 09:51 Special observations: no evidence of discomfort, patient wearing blindfold, Vital Signs: 09:33 Temp 98(TE); Weight 68.04 kg; Height 5 ft. 9 in. ; Pain 10/10; ss 09:37 Pulse 100; Pulse Ox 100% on R/A; ss 09:37 BP 139 / 105; ss 10:11 Resp 16; ss 09:33 Body Mass Index 22.15 (68.04 kg, 175.26 cm) ss 09:33 Pain Scale: Adult ss MDM: 09:28 Medical Screening Exam initiated sb4 09:55 ED course: Per chart review, patient was seen here twice on the for the same sb4 symptoms, eloped the first time. Seems that his story was different that time. States he does not recall being here on the . I personally saw him last year when he had a family member present, and she stated he does have a history of schizophrenia and does not take his medications as prescribed. 11:23 Data reviewed: vital signs, nurses notes, radiologic studies, and as a result, I will sb4 discharge patient. Counseling: I had a detailed discussion with the patient and/or guardian regarding the historical points, exam findings, and any diagnostic results supporting the discharge/admit diagnosis, radiology results, the need for outpatient follow up, for definitive care, to return to the emergency department if symptoms worsen or persist or if there are any questions or concerns that arise at home. 02/22 09:51 Order name: UA Rfx Ramon Cult if indicated; Complete Time: 13:05 sb4 02/22 09:51 Order name: UDS; Complete Time: 13:05 sb4 02/22 09:50 Order name: CT Pelvis wo Cont; Complete Time: 11:22 sb4 Administered Medications: No medications were administered Disposition: 17:40 I was immediately available on-site in the Emergency Department for consultation in the ms3 care of the patient. Disposition Summary: 02/22/25 11:23 Discharge Ordered Notes: Location: Home sb4 Problem: an ongoing problem sb4 Symptoms: have improved sb4 Condition: Stable sb4 Diagnosis - Pain in right thigh sb4 Followup: sb4 - With: Private Physician - When: 1 week - Reason: Recheck today's complaints, Re-evaluation by your physician Discharge Instructions: - Discharge Summary Sheet sb4 - Musculoskeletal Pain sb4 - Pain Without a Known Cause sb4 Forms: - Patient Portal Instructions sb4 - Leadership Thank You Letter sb4 Signatures: Dispatcher [employer] EDMS Sarah Dunlap, VIOLETA RN ss Palmira Tracy RN RN ap3 Benjamín Taylor DO DO ms3 Olimpia Cain PA-C PAWanda sb4 Corrections: (The following items were deleted from the chart) 09:36 09:35 PMHx: None; [facility] 09:51 09:51 UA Rfx Ramon Cult if indicated+U.LAB.BRZ ordered. EDMS EDMS 09:51 09:51 URINE DRUG SCREEN+UC.LAB.BRZ ordered. EDMS EDMS
[2025-02-22 11:44] VITALS: TEMP 98
[2025-02-22 11:46] VITALS: BP 139/105; O2SAT 100
[2025-02-22 11:46] LABS: Barbiturates NEGATIVE (NEGATIVE); Benzodiazepines NEGATIVE (NEGATIVE); Cocaine NEGATIVE (NEGATIVE); METHAMPHETAM POSITIVE (NEGATIVE); Methadone NEGATIVE (NEGATIVE); Opiates NEGATIVE (NEGATIVE); Phencyclidine NEGATIVE (NEGATIVE); THC Cannibis POSITIVE (NEGATIVE)
[2025-02-22 12:17] LABS: Specific Gravity 1.028 (1.005-1.030); Sqamous Epithelial <5 /HPF (None Seen); Urine Bacteria None Seen /HPF (<20); Urine Bilirubin NEGATIVE (Negative); Urine Blood Negative (Negative); Urine Clarity Clear (Clear); Urine Color Yellow (Yellow); Urine Culture Reflex Order NOT NEEDED; Urine Glucose NEGATIVE (Negative); Urine Ketones TRACE (Negative); Urine Microscopic Reflex YN ORDER UMIC; Urine Mucus 2+ /HPF (None Seen); Urine Nitrite NEGATIVE (Negative); Urine Protein TRACE (Negative); Urine RBC <5 /HPF (None Seen); Urine Urobilinogen 1+ (Normal); Urine pH 5.5 (5.0-7.0)
== END 2025-02-22 11:40 | disposition home or self-care (01) ==
LOC: ER 09:20
DX: M79.651 Pain in right thigh (principal); F17.210 Nicotine dependence, cigarettes, uncomplicated
CPT/HCPCS: 72192; 80307; 81001; 99282